=== PATIENT | female | born 1995 | race African-American/Black ===

== ENCOUNTER 2021-01-01 09:40 | Outpatient (REF) | payer OTHER, SELFPAY ==
[2021-01-01 11:25] LABS: Hematocrit 40.1 % (37-47); Hemoglobin 13.5 g/dl (12.0-16.0); Mean Corpuscular HGB Conc 33.7 g/dl (31.0-35.0); Mean Corpuscular Hemoglobin 30.3 pg (27.0-33.0); Mean Corpuscular Volume 89.9 fL (80-98); Mean Platelet Volume 10.9 fL (9.4-12.3); Platelet Count 261 X10*3/uL (160-400); Red Blood Count 4.46 X10*6/uL (4.20-5.50); Red Cell Distribution Width 11.9 % (11.0-16.0); White Blood Count 7.5 X10*3/uL (4.8-10.8)
[2021-01-01 11:49] LABS: Alanine Aminotransferase 15 U/L (0-31); Albumin Level 4.4 g/dL (3.5-5.0); Alkaline Phosphatase 49 U/L (39-117); Anion Gap 11 (12-20); Aspartate Amino Transferase 16 U/L (5-31); Bilirubin Total 1.1 mg/dL (0.0-1.0); Blood Urea Nitrogen 11 mg/dL (9-16); Calcium 9.4 mg/dL (8.4-10.2); Carbon Dioxide 24 mmol/L (22-29); Chloride 106 mmol/L (96-108); Cholesterol 146 mg/dL; Estimated Glomerular Filt Rate > 60; Glucose Fasting 79 mg/dL (60-99); HDL Cholesterol 53 mg/dL; LDL Cholesterol Calculated 78 mg/dl; Potassium 4.2 mmol/L (3.3-5.1); Sodium 137 mmol/L (135-145); Total Protein 7.2 g/dL (6.5-8.0); Triglycerides 75 mg/dL
== END 2021-01-01 09:41 | disposition home or self-care (01) ==
LOC: HO.HMGCLDS 09:40
PROVIDERS: PCP Internal Medicine; Visit Provider Internal Medicine
DX: Z00.00 Encounter for general adult medical examination without abnormal findings (principal)
CPT/HCPCS: 36415; 80053; 80061; 85027

== ENCOUNTER 2022-08-14 07:59 | Inpatient (IN) | payer OTHER, SELFPAY ==
[2022-08-14] VITALS (9 sets, daily range): BP systolic 136–153; BP diastolic 77–93; PULSE 56–82; RESP 14–20; TEMP 36.6–37.3; O2SAT 98–100; BMI 20.8; BMI 22.4
--- NOTE | ~2022-08-14 | CT_ITS ---
EXAMINATION: CT ABDOMEN AND PELVIS WITHOUT CONTRAST CLINICAL INFORMATION: Abdominal pain COMPARISON: None available. TECHNIQUE: Multidetector volumetric imaging was performed from the superior aspect of the liver through the pubic symphysis. Sagittal and coronal reformatted images were obtained on the technologist's workstation. Today's examination is limited secondary to lack of IV contrast and paucity of intra-abdominal fat. This CT examination was performed using dose optimization techniques as appropriate, variously including the following: *Automated exposure control *Adjustment of mA and/or kV according to patient size (this includes techniques or standardized protocols for targeted exams where dose is matched to indication/reason for exam; i.e. extremities or head) *Use of iterative reconstruction technique DLP: 399 mGy-cm FINDINGS: Visualized lung bases are well aerated. The liver demonstrates normal size, contour and attenuation. The gallbladder is normal in appearance. The pancreas, spleen and adrenal glands are unremarkable. Symmetrically sized kidneys. No renal calculi or hydronephrosis of either kidney. Normal caliber loops of small and large bowel. Normal caliber abdominal aorta. The bladder is decompressed and therefore not optimally characterized. Varela catheter is redundant and suspected to be within the vagina. There is a small amount of free pelvic fluid, nonspecific. No inguinal lymphadenopathy. No acute osseous abnormality. CT/CT abdomen pelvis wo IV con IMPRESSION: 1. Varela catheter is redundant and suspected to be within the vagina. Clinical correlation recommended. Repositioning warranted. 2. Small amount of free pelvic fluid, nonspecific. Fleischner guidelines were followed. This Critical Result was discussed with Dr. Morley at 12:10 PM on 08/14/2022 and it was ascertained that the content and urgency of the report was understood at the time of direct communication.
--- NOTE | ~2022-08-14 | US_ITS ---
EXAMINATION: US VENOUS WITH DOPPLER UPPER EXTREMITY, RIGHT CLINICAL INFORMATION: Edema, swelling COMPARISON: None available. TECHNIQUE: Ultrasound of the upper extremity is performed using compression sonography and color and pulse Doppler flow with assessment of augmentation of flow. There is also imaging and Doppler assessment of the jugular and subclavian veins. Spectral analysis with color-flow imaging is performed. FINDINGS: Respiratory variation, normal compression, and augmented flow are noted throughout the upper extremity deep vein including the axillary, brachial, cubital, and radial and ulnar veins. There is normal flow in the internal jugular and subclavian veins. There is normal flow in the basilic vein. There is near occlusive superficial venous thrombus noted in the right mid to distal cephalic vein. Mild subcutaneous edema in the forearm. US/US venous duplex UE RT IMPRESSION: No DVT demonstrated in the right upper extremity. Near occlusive superficial venous thrombus noted in the right mid to distal cephalic vein with subcutaneous edema in the forearm.
--- NOTE | ~2022-08-14 | IR_ITS ---
PROCEDURE: IR INSERTION OF TUNNEL CATHETER CLINICAL INFORMATION: Renal failure. COMPARISON: None available. TECHNIQUE: Procedure and risks and benefits including bleeding, infection and pneumothorax were discussed with the patient and informed consent was obtained. All elements of maximal sterile barrier technique followed including use of cap, mask, sterile gown, sterile gloves, a sterile full body drape and hand hygiene. Also followed skin preparation with 2% chlorhexidine for cutaneous antisepsis, and sterile ultrasound preparation with sterile gel and probe cover when applicable. The right neck and chest were prepped and draped in the usual sterile fashion. The skin and soft tissues were anesthetized with 1% lidocaine plain. Using ultrasound guidance and a 5 Q[place] micropuncture system, right internal jugular vein access was obtained. Over an 018 wire, a 5 Q[place]ari dilator was positioned in the SVC. The skin and soft tissues at the right upper anterior chest were anesthetized with 1% lidocaine plain. A small incision was made. A subcutaneous tunnel from the chest to the neck incision was anesthetized with 1% lidocaine plain. Using a tunneler, a 14.5 Q[place]ari 19 cm in length glidepath permacath was tunneled from the chest to the neck incision. An 035 guidewire was advanced through the 5 Q[place]ari dilator into a hepatic vein. Following serial dilatation and through a peel-away sheath, permacath was advanced centrally into the chest. The neck incision was closed using a 3-0 absorbable subcuticular suture. Chest incision was closed using a 3-0 absorbable mattress suture. Both ports flushed well, had good blood return and were instilled with 1.6 mL heparin 1000 unit per mL solution. Real-time ultrasound guidance was used to document vein patency and for needle entry. A formal ultrasound picture was recorded. Fluoroscopy time was 0.6 minutes. There is 1 saved fluoroscopic image. Conscious sedation was provided by a registered nurse under my direct supervision with continuous hemodynamic monitoring. The patient received Versed 1 mg and fentanyl 50 mcg intravenously during the procedure. Hegy-mg-cmvd total sedation time was 22 minutes. FINDINGS: There is a right internal jugular permacath with tip projecting over the cavoatrial junction. IR/IR cvc insert central tunnel IMPRESSION: 14.5 Q[place]ari 19 cm in length glidepath permacath placement.
--- NOTE | ~2022-08-14 | CT_ITS ---
PROCEDURE: CT GUIDED BIOPSY, KIDNEY CLINICAL INFORMATION: Renal failure. COMPARISON: Previous CT of the abdomen and pelvis July 2022. TECHNIQUE: Procedure and risks and benefits including bleeding, infection and injury to the kidney were discussed with the patient and informed consent was obtained. The patient was positioned in the prone position. Limited axial images through the kidneys were performed. The left flank was prepped and draped in usual sterile fashion. The skin and soft tissues were anesthetized with 1% lidocaine plain. Using CT guidance and a coaxial system, access to the lower pole of the left kidney was obtained. Two 18-gauge core biopsies were obtained. Postprocedure imaging demonstrated a small amount of perinephric hemorrhage. This remains stable on serial images. Conscious sedation was provided by a registered nurse under my direct supervision with continuous hemodynamic monitoring. Patient received Versed 1.5 g of fentanyl 75 mcg intravenously during the procedure. Total sedation time was 15 minutes. Total andv-ny-[id number] contact time was [address] examination was performed using dose optimization techniques as appropriate, variously including the following: *Automated exposure control *Adjustment of mA and/or kV according to patient size (this includes techniques or standardized protocols for targeted exams where dose is matched to indication/reason for exam; i.e. extremities or head) *Use of iterative reconstruction technique DLP: 191 mGy-cm. FINDINGS: The kidneys are enlarged with bilateral renal cortical thickening. There is a small amount of ascites. There are small bilateral pleural effusions. There is a small pericardial effusion. There is diffuse subcutaneous edema or anasarca. Postbiopsy imaging demonstrates a small amount of perinephric hemorrhage surrounding the lower pole of the left kidney. This remains stable on serial imaging. CT/CT biopsy renal LT IMPRESSION: CT-guided left renal biopsy.
--- NOTE | 2022-08-14 08:12 | ED_ITS ---
HPI - General Adult General Chief complaint: Abdominal Pain Stated complaint: abd pain Time Seen by Provider: 08/14/22 08:12 Source: patient Mode of arrival: ambulatory Limitations: no limitations History of Present Illness HPI narrative: Patient is a 27 year old assigned female at with a history of asthma pres enting to the emergency department today with nausea, vomiting, and intermittent abdominal cramping. Patient states that for a little over a week she has had abdominal cramping, nausea, and vomiting. Patient states that her bowel movements have been changing between loose and small hard balls. Patient states that she was given some anti nausea medication that helped but didn't fix the pain. Patient denies any dizziness, lightheadedness, fever, chills, blurry vision, double vision, loss of vision, chest pain, difficulty breathing, shortness of breath, back pain, night sweats, pain with urination, increased urinary frequency, increased urinary urgency, blood in her urine or stool, syncope or a near syncopal episode, recent trauma or falls, bowel incontinence, bladder incontinence, bowel retention, bladder retention, or any other complaints at this time. Onset (ago): week(s) Severity: mild Relieving factors: none Exacerbating factors: none Associated symptoms: nausea/vomiting Treatments prior to arrival: other (anti-emetics) Related Data Previous Rx's Medication Instructions Recorded albuterol sulfate 90 mcg/actuation 2 puff inhalation Q6H PRN 01/06/22 aerosol inhaler shortness of breath or wheezing #8.5 grams levonorgestrel-ethinyl estradiol 1 tab PO DAILY #84 tabs 01/06/22 0.1 mg-20 mcg tablet Flovent HFA 110 mcg/actuation 2 puff inhalation BID #36 grams 06/21/22 aerosol inhaler (fluticasone propionate) Allergies Allergy/AdvReac Type Severity Reaction Status Date / Time penicillin V Allergy Unknown rash Verified 08/11/22 10:17 Review of Systems Constitutional: Constitutional: Reports no additional constitutional complaints, Denies chills, Denies fever(s) and Denies night sweats Eyes: Eyes: Reports no additional eye complaints, Denies blurry vision, Denies change in vision, Denies diplopia, Denies eye discharge, Denies loss of vision and Denies eye pain ENT: Denies dizziness Cardiovascular: Cardiovascular: Reports no additional cardiovascular complaints, Denies chest pain, Denies lightheadedness, Denies Loss of Consciousness and Denies dyspnea Respiratory: Respiratory: Reports no additional respiratory complaints and Denies dyspnea Gastrointestinal: Gastrointestinal: Reports no additional gastrointestinal complaints, Reports abdominal pain, Denies melena, Denies hematochezia, Denies change in bowel habits, Denies change in stool character, Reports nausea and Reports vomiting Genitourinary: Genitourinary: Denies hematuria, Denies urinary frequency, Denies dysuria, Denies urinary incontinence, Denies urinary hesitancy and Denies urinary urgency Musculoskeletal: Musculoskeletal: Reports no additional musculoskeletal complaints, Denies numbness and Denies tingling Neurologic: Denies dizziness, Denies loss of vision, Denies numbness and Denies tingling Psychiatric: Psychiatric: Reports no additional psychiatric complaints Endocrine: Endocrine: Reports no additional endocrine complaints Hematologic/Lymphatic: Hematologic/Lymphatic: Reports no additional hematologic/lymphatic complaints Allergic/Immunologic: Allergic/Immunologic: Reports no additional allergic/immunologic complaints PMF Past Medical History Attestation statement: The following information was validated with the patient. Source: old records reviewed and nursing notes reviewed Medical History Asthma Family History Family History Paternal Aunt SLE (systemic lupus erythematosus) Social History Social History Household Members Other:: Lives with a partner Housing: House Patient Tobacco Use Status: Never used Tobacco e-Cigarette/Vaping Use: Never Used Advance Directives: No Advance Directives Information Provided: No Nutrition Risks: No Nutritional Risk Current occupational status: employed Cognitive needs: No Hearing needs: No Vision needs: Yes Physical Exam ED Vital Signs: Vital Signs - 24 hr 08/14/22 08:01 08/14/22 10:00 08/14/22 11:26 Temperature 98 F 97.8 F 98.0 F Pulse Rate 82 70 67 Respiratory Rate 18 14 16 Blood Pressure 153/93 H 141/89 H 145/87 H Pulse Oximetry 98 100 100 Oxygen Delivery Method Room Air Room Air Room Air 08/14/22 12:19 Temperature Pulse Rate 76 Respiratory Rate 16 Blood Pressure 140/80 H Pulse Oximetry 100 Oxygen Delivery Method Room Air BMI result Body Mass Index 20.8 Const General: cooperative, no acute distress, alert and awake Nutritional Appearance: well nourished Orientation/consciousness: patient oriented x3 Limitations: no limitations HENMT Head: Yes normal to inspection and Yes atraumatic Ears: hearing grossly normal bilaterally and external ears normal General nose exam: Normal external nose present, no nasal discharge noted and no epistaxis Face and sinus: Yes normal facial exam, No abrasion and No laceration Mouth: Normal oral and palatal mucosa present, no drooling and no muffled voice Eyes General: appearance normal, both eyes and all related structures Periorbital: periorbital findings normal Eyelids: Yes eyelids normal Conjunctivae: conjunctivae normal Pupils: Equal, round and reactive pupils present EOM: EOMs intact bilaterally Neck Neck: Yes normal visual inspection, Yes full ROM and Yes no lymphadenopathy Chest Chest palpation & inspection: normal inspection of the chest Resp Effort & Inspection: normal respiratory effort and able to speak in complete sentences Auscultation: clear to auscultation bilaterally GI Inspection: Yes normal to inspection Palpation (GI): Soft to palpation, not firm, nontender and no guarding Neuro General: patient oriented x3 and moves all extremities Cranial nerves: Yes Equal, round and reactive pupils present Cognition (Neuro): normal cognition Motor exam (neuro): 5/5 motor strength present throughout Sensory Exam: Normal double simultaneous stimulation for sensation Coordination: [id number] test normal Extrem General: Yes normal to inspection, Yes full ROM and Yes capillary refill normal Psych Appearance: grossly normal Mental Status: mental status grossly normal Affect: normal affect Attitude: cooperative Thought process: Normal thought process present Thought content: Normal thought content present Insight: Good insight present (Psych) Medications Administered Generic Name Dose Route Start Last Admin Trade Name Freq PRN Reason Stop Dose Admin Heparin Sodium (Porcine) 5,000 unit 08/14/22 14:00 08/14/22 13:40 Heparin Sodium,Porcine 5,000 Unit/Ml Vial SUBCUT 5,000 unit Q12H JENNIFER Administration Discontinued Medications Generic Name Dose Route Start Last Admin Trade Name Freq PRN Reason Stop Dose Admin Sodium Chloride 1,000 mls @ 999 mls/hr 08/14/22 08:15 08/14/22 10:57 Ns IV 08/14/22 09:15 Infused .Q1H1M JENNIFER Infusion Sodium Chloride 1,000 mls @ 999 mls/hr 08/14/22 10:45 08/14/22 12:14 Ns IV 08/14/22 11:45 Infused .Q1H1M JENNIFER Infusion Sodium Chloride 1,000 mls @ 999 mls/hr 08/14/22 11:00 08/14/22 12:40 Ns IV 08/14/22 12:00 Infused .Q1H1M JENNIFER Infusion Calcium Gluconate 2 gm in 100 mls @ 50 mls/hr 08/14/22 11:34 08/14/22 11:55 Calcium Gluconate IV 08/14/22 13:33 50 mls/hr ONCE ONE Administration Ondansetron HCl 4 mg 08/14/22 08:12 08/14/22 08:29 Ondansetron Hcl 4 Mg/2 Ml Vial IVPUSH 08/14/22 08:13 4 mg ONCE ONE Administration Sodium Bicarbonate 50 meq 08/14/22 11:40 08/14/22 11:48 Sodium Bicarbonate 8.4% 50 Meq/50 Ml Syringe IVPUSH 08/14/22 11:41 50 meq ONCE ONE Administration Sodium Bicarbonate 50 meq 08/14/22 11:41 08/14/22 11:48 Sodium Bicarbonate 8.4% 50 Meq/50 Ml Syringe IVPUSH 08/14/22 11:42 50 meq ONCE ONE Administration Sodium Zirconium Cyclosilicate 5 gm 08/14/22 11:34 08/14/22 11:57 Sodium Zirconium Cyclosilicate 5 Gm Powd.Pack PO 08/14/22 11:35 5 gm ONCE ONE Administration Sodium Zirconium Cyclosilicate 5 gm 08/14/22 12:13 08/14/22 12:19 Sodium Zirconium Cyclosilicate 5 Gm Powd.Pack PO 08/14/22 12:14 5 gm ONCE ONE Administration Medical Decision Making Medical Decision Making [facility] Narrative: Patient is a 27 year old assigned female at with a history of asthma presenting to the emergency department today with nausea, vomiting, and abdominal pain. Patient's physical exam was unremarkable. Patient's blood work showed a significantly elevated CR of 24.99, BUN 195, GAP 31, Potassium 6.3, and lipase of 141. Patient's EKG showed peaked T-waves. Patient's abdomen/pelvis CT showed a wrongly placed silva catheter but was otherwise unremarkable. I spoke to the solar energy installation manager who recommended calcium gluconate, sodium bicarbonate, lokelma, and NS. I spoke to the hospitalist team who agreed to admission. I explained my physical exam findings as well as all test results to the patient and the patient's parents. I answered all questions asked by the patient and the patient's parents. Patient's clinical presentation is most consistent with kidney failure secondary to dehydration and not spesis (@1345). Patient and the patient's parents verbalized agreement and understanding with this treatment plan and admission. Differential Diagnosis Differential Diagnoses: The differential diagnosis associated with the presentation includes gastroenteritis, abdominal pain, nausea, vomiting Consult Healthcare Provider Management of the patient was discussed with: Hospitalist (agreed to admission) and Systems Trainer (spoke to solar energy installation manager as noted in the MDM portion of this chart) Lab Data [facility] Lab Attestation statement: I reviewed the patient's lab results. 08/14/22 08:25 08/14/22 10:40 Labs: Lab Results 08/14/22 08/14/22 08/14/22 Range/Units 08:25 08:25 10:40 WBC 6.8 (4.8-10.8) X10*3/uL RBC 3.96 L (4.20-5.50) X10*6/uL Hgb 11.9 L (12.0-16.0) g/dl Hct 32.7 L (37.0-47.0) % MCV 82.6 (80.0-98.0) fL MCH 30.1 (27.0-33.0) pg MCHC 36.4 H (31.0-35.0) g/dl RDW 12.3 (11.0-16.0) % Plt Count 188 (160-400) X10*3/uL MPV 12.2 (9.4-12.3) fL Absolute Nucleated RBC 0.000 (0.0-0.012) X10*3/uL Nucleated RBC % (auto) 0.0 (0.0-0.2) /100WBC O2 Saturation % ABG pH at Pt Temp (7.35-7.45) ABG pCO2 at Pt Temp (32-45) mmHg ABG pO2 at Pt Temp (83-108) mmHg ABG HCO3 (22-26) mmol/L ABG Base Excess (Actual) mmol/L Sodium 128 L 127 L (135-145) mmol/L Potassium 5.9 H D 6.3 H* (3.3-5.1) mmol/L Chloride 87 L 91 L (96-108) mmol/L Carbon Dioxide 12 L 11 L (22-29) mmol/L Anion Gap 35 H 31 H (12-20) BUN 196 H 195 H (9-16) mg/dL Creatinine 25.30 H* 24.99 H* (0.5-1.4) mg/dL Estim Creat Clear Calc 3.1 3.1 Estimated GFR 2 2 Random Glucose 85 78 (60-115) mg/dL Calcium 9.0 8.2 L D (8.4-10.2) mg/dL Magnesium 3.0 H (1.6-2.6) mg/dL Total Bilirubin 1.1 H 0.9 (0.0-1.0) mg/dL Direct Bilirubin 0.4 (0.0-0.5) mg/dL AST 10 8 (5-31) U/L ALT 27 22 (0-31) U/L Alkaline Phosphatase 74 64 (39-117) U/L Total Protein 6.8 5.9 L (6.5-8.0) g/dL Albumin 3.9 3.4 L (3.5-5.0) g/dL Lipase 141 H (8-78) U/L Beta HCG, Quant < 2 mIU/mL Urine Color Urine Appearance Urine pH (5.0-9.0) Ur Specific [place] (1.005-1.025) Urine Protein (Neg-Trace) mg/dL Urine Glucose (UA) (Negative) mg/dL Urine Ketones (Negative) mg/dL Urine Blood (Negative) Urine Nitrite (Negative) Ur Leukocyte Esterase (Negative) Urine RBC (0-2) /HPF Urine WBC (0-5) /HPF Ur Squamous Epith Cells (0-2) /HPF Urine Bacteria (None Seen) Hyaline Casts (0-2) /LPF Urine Test (NEGATIVE) Urine Opiates Screen (Not Detect) Urine Fentanyl Screen (Not Detect) Ur Barbiturates Screen (Not Detect) Ur Phencyclidine Scrn (Not Detect) Ur Amphetamines Screen (Not Detect) U Benzodiazepines Scrn (Not Detect) Urine Cocaine Screen (Not Detect) U Marijuana (THC) Screen (Not Detect) 08/14/22 08/14/22 08/14/22 Range/Units 10:40 10:40 10:40 WBC (4.8-10.8) X10*3/uL RBC (4.20-5.50) X10*6/uL Hgb (12.0-16.0) g/dl Hct (37.0-47.0) % MCV (80.0-98.0) fL MCH (27.0-33.0) pg MCHC (31.0-35.0) g/dl RDW (11.0-16.0) % Plt Count (160-400) X10*3/uL MPV (9.4-12.3) fL Absolute Nucleated RBC (0.0-0.012) X10*3/uL Nucleated RBC % (auto) (0.0-0.2) /100WBC O2 Saturation % ABG pH at Pt Temp (7.35-7.45) ABG pCO2 at Pt Temp (32-45) mmHg ABG pO2 at Pt Temp (83-108) mmHg ABG HCO3 (22-26) mmol/L ABG Base Excess (Actual) mmol/L Sodium (135-145) mmol/L Potassium (3.3-5.1) mmol/L Chloride (96-108) mmol/L Carbon Dioxide (22-29) mmol/L Anion Gap (12-20) BUN (9-16) mg/dL Creatinine (0.5-1.4) mg/dL Estim Creat Clear Calc Estimated GFR Random Glucose (60-115) mg/dL Calcium (8.4-10.2) mg/dL Magnesium (1.6-2.6) mg/dL Total Bilirubin (0.0-1.0) mg/dL Direct Bilirubin (0.0-0.5) mg/dL AST (5-31) U/L ALT (0-31) U/L Alkaline Phosphatase (39-117) U/L Total Protein (6.5-8.0) g/dL Albumin (3.5-5.0) g/dL Lipase (8-78) U/L Beta HCG, Quant mIU/mL Urine Color Yellow Urine Appearance Cloudy Urine pH 5.5 (5.0-9.0) Ur Specific [place] 1.015 (1.005-1.025) Urine Protein 100 (2+) H (Neg-Trace) mg/dL Urine Glucose (UA) 100 H (Negative) mg/dL Urine Ketones Trace (Negative) mg/dL Urine Blood Large (3+) H (Negative) Urine Nitrite Negative (Negative) Ur Leukocyte Esterase Small (1+) H (Negative) Urine RBC 11-20 H (0-2) /HPF Urine WBC 11-20 H (0-5) /HPF Ur Squamous Epith Cells 11-20 (0-2) /HPF Urine Bacteria 2+ (None Seen) Hyaline Casts 0-2 (0-2) /LPF Urine Test NEGATIVE (NEGATIVE) Urine Opiates Screen Not Detected (Not Detect) Urine Fentanyl Screen Not Detected (Not Detect) Ur Barbiturates Screen Not Detected (Not Detect) Ur Phencyclidine Scrn Not Detected (Not Detect) Ur Amphetamines Screen Not Detected (Not Detect) U Benzodiazepines Scrn Not Detected (Not Detect) Urine Cocaine Screen Not Detected (Not Detect) U Marijuana (THC) Screen Not Detected (Not Detect) 08/14/22 Range/Units 12:20 WBC (4.8-10.8) X10*3/uL RBC (4.20-5.50) X10*6/uL Hgb (12.0-16.0) g/dl Hct (37.0-47.0) % MCV (80.0-98.0) fL MCH (27.0-33.0) pg MCHC (31.0-35.0) g/dl RDW (11.0-16.0) % Plt Count (160-400) X10*3/uL MPV (9.4-12.3) fL Absolute Nucleated RBC (0.0-0.012) X10*3/uL Nucleated RBC % (auto) (0.0-0.2) /100WBC O2 Saturation 100.0 % ABG pH at Pt Temp 7.43 (7.35-7.45) ABG pCO2 at Pt Temp 17 L* (32-45) mmHg ABG pO2 at Pt Temp 144 H (83-108) mmHg ABG HCO3 11 L (22-26) mmol/L ABG Base Excess (Actual) -10.3 mmol/L Sodium (135-145) mmol/L Potassium (3.3-5.1) mmol/L Chloride (96-108) mmol/L Carbon Dioxide (22-29) mmol/L Anion Gap (12-20) BUN (9-16) mg/dL Creatinine (0.5-1.4) mg/dL Estim Creat Clear Calc Estimated GFR Random Glucose (60-115) mg/dL Calcium (8.4-10.2) mg/dL Magnesium (1.6-2.6) mg/dL Total Bilirubin (0.0-1.0) mg/dL Direct Bilirubin (0.0-0.5) mg/dL AST (5-31) U/L ALT (0-31) U/L Alkaline Phosphatase (39-117) U/L Total Protein (6.5-8.0) g/dL Albumin (3.5-5.0) g/dL Lipase (8-78) U/L Beta HCG, Quant mIU/mL Urine Color Urine Appearance Urine pH (5.0-9.0) Ur Specific [place] (1.005-1.025) Urine Protein (Neg-Trace) mg/dL Urine Glucose (UA) (Negative) mg/dL Urine Ketones (Negative) mg/dL Urine Blood (Negative) Urine Nitrite (Negative) Ur Leukocyte Esterase (Negative) Urine RBC (0-2) /HPF Urine WBC (0-5) /HPF Ur Squamous Epith Cells (0-2) /HPF Urine Bacteria (None Seen) Hyaline Casts (0-2) /LPF Urine Test (NEGATIVE) Urine Opiates Screen (Not Detect) Urine Fentanyl Screen (Not Detect) Ur Barbiturates Screen (Not Detect) Ur Phencyclidine Scrn (Not Detect) Ur Amphetamines Screen (Not Detect) U Benzodiazepines Scrn (Not Detect) Urine Cocaine Screen (Not Detect) U Marijuana (THC) Screen (Not Detect) Independent Interpretation I performed an independent interpretation of an: EKG Interpretation: Vent. Rate: 069 BPM ? ? Atrial Rate: 069 BPM P-R Int: 136 ms? QRS Dur: 076 ms QT Int: 380 ms ? ? ? P-R-T Axes: 052 059 061 degrees QTc Int: 407 ms ? Sinus rhythm with Premature supraventricular complexes and with occasional Premature ventricular complexes Septal infarct , age undetermined Abnormal ECG When compared with ECG of 15-JUL-2015 15:46, Septal infarct is now Present DD/ 1121 Radiology Impression Radiologist Impression: My interpretation is in agreement with the radiologist's impression of this imaging study. EXAMINATION: CT ABDOMEN AND PELVIS WITHOUT CONTRAST? CLINICAL INFORMATION: Abdominal pain? COMPARISON: None available. TECHNIQUE: Multidetector volumetric imaging was performed from the superior aspect of the liver through the pubic symphysis. Sagittal and coronal reformatted images were obtained on the technologist's workstation. Today's examination is limited secondary to lack of IV contrast and paucity of intra-abdominal fat. This CT examination was performed using dose optimization techniques as appropriate, variously including the following: *Automated exposure control *Adjustment of mA and/or kV according to patient size (this includes techniques or standardized protocols for targeted exams where dose is matched to indication/reason for exam; i.e. extremities or head) *Use of iterative reconstruction technique DLP: 399 mGy-cm FINDINGS: Visualized lung bases are well aerated. The liver demonstrates normal size, contour and attenuation. The gallbladder is normal in appearance. The pancreas, spleen and adrenal glands are unremarkable. Symmetrically sized kidneys. No renal calculi or hydronephrosis of either kidney. Normal caliber loops of small and large bowel. Normal caliber abdominal aorta. The bladder is decompressed and therefore not optimally characterized. Silva catheter is redundant and suspected to be within the vagina. There is a small amount of free pelvic fluid, nonspecific. No inguinal lymphadenopathy. No acute osseous abnormality. CT/CT abdomen pelvis wo IV con IMPRESSION: 1.? Silva catheter is redundant and suspected to be within the vagina. Clinical correlation recommended. Repositioning warranted. 2.? Small amount of free pelvic fluid, nonspecific. ? Fleischner guidelines were followed. ? This Critical Result was discussed with Dr. Morley at 12:10 PM on 08/14/2022 and it was ascertained that the content and urgency of the report was understood at the time of direct communication. Dictated By: Ebenezer Craft MD Signed By: Electronically signed by Ebenezer Craft MD 08/14/22 1211 Independent Historian Clinical information obtained from an independent historian. History obtained from or confirmed by: Parent (patient's parents) Critical Care Time Critical Care Time Critical Care Time: Yes Total Critical Care Time: 45 Attestation: I spent 45 minutes of Critical Care Time with this patient. This does not include time spent on separately reported billable procedures. Discharge Plan Discharge Clinical Impression: BARNEY (acute kidney injury), Acute dehydration Patient Disposition: Admitted As Inpatient
[2022-08-14] MEDS: 0.9 % Sodium Chloride 1,000 ML 999 ML IV ×3 (08:27→12:37)
[2022-08-14] MEDS: ondansetron HCL 4 MG/2 ML VIAL IVPUSH ×2 (08:29→16:08)
[2022-08-14 08:36] LABS: Hematocrit 32.7 % (37.0-47.0); Hemoglobin 11.9 g/dl (12.0-16.0); Mean Corpuscular HGB Conc 36.4 g/dl (31.0-35.0); Mean Corpuscular Hemoglobin 30.1 pg (27.0-33.0); Mean Corpuscular Volume 82.6 fL (80.0-98.0); Mean Platelet Volume 12.2 fL (9.4-12.3); Platelet Count 188 X10*3/uL (160-400); Red Blood Count 3.96 X10*6/uL (4.20-5.50); Red Cell Distribution Width 12.3 % (11.0-16.0); White Blood Count 6.8 X10*3/uL (4.8-10.8)
[2022-08-14 10:31] LABS: Alanine Aminotransferase 27 U/L (0-31); Albumin Level 3.9 g/dL (3.5-5.0); Alkaline Phosphatase 74 U/L (39-117); Anion Gap 35 (12-20); Aspartate Amino Transferase 10 U/L (5-31); Bilirubin Direct 0.4 mg/dL (0.0-0.5); Bilirubin Total 1.1 mg/dL (0.0-1.0); Blood Urea Nitrogen 196 mg/dL (9-16); Carbon Dioxide 12 mmol/L (22-29); Chloride 87 mmol/L (96-108); Creatinine Clr Calc Pharmacy 3.1; Estimated Glomerular Filt Rate 2; Glucose Random 85 mg/dL (60-115); HCG Quantitative < 2 mIU/mL; Lipase 141 U/L (8-78); Potassium 5.9 mmol/L (3.3-5.1); Sodium 128 mmol/L (135-145); Total Protein 6.8 g/dL (6.5-8.0)
[2022-08-14 10:51] LABS: Appearance Urine Cloudy; Color Urine Yellow; Glucose Urine UA 100 mg/dL (Negative); Leukocyte Esterase Urine Small (1+) (Negative); Nitrite Urine Negative (Negative); PH 5.5 (5.0-9.0); Specific Gravity - Urine 1.015 (1.005-1.025); UMIC TRIGGER UACC YES; Urine Blood Large (3+) (Negative); Urine Ketones Trace mg/dL (Negative); Urine Protein 100 (2+) mg/dL (Neg-Trace)
[2022-08-14 10:54] LABS: UPreg QC Valid YES; Urine Pregnancy NEGATIVE (NEGATIVE)
[2022-08-14 11:02] LABS: Bacteria Urine 2+ (None Seen); Hyaline Casts Urine 0-2 /LPF (0-2); UACC Culture Trigger YES
--- NOTE | 2022-08-14 11:11 | ECG_ITS ---
Test Reason : HYPERKALEMIA Blood Pressure : / mmHG Vent. Rate : 069 BPM Atrial Rate : 069 BPM P-R Int : 136 ms QRS Dur : 076 ms QT Int : 380 ms P-R-T Axes : 052 059 061 degrees QTc Int : 407 ms Sinus rhythm with Premature supraventricular complexes and with occasional Premature ventricular complexes Septal infarct , age undetermined Abnormal ECG When compared with ECG of 15-JUL-2015 15:46, Septal infarct is now Present Referred By: Cherie Morley Electronically Signed By:Anival Mcclain
[2022-08-14 11:17] LABS: Alanine Aminotransferase 22 U/L (0-31); Albumin Level 3.4 g/dL (3.5-5.0); Alkaline Phosphatase 64 U/L (39-117); Anion Gap 31 (12-20); Aspartate Amino Transferase 8 U/L (5-31); Bilirubin Total 0.9 mg/dL (0.0-1.0); Blood Urea Nitrogen 195 mg/dL (9-16); Calcium 8.2 mg/dL (8.4-10.2); Carbon Dioxide 11 mmol/L (22-29); Chloride 91 mmol/L (96-108); Creatinine Clr Calc Pharmacy 3.1; Estimated Glomerular Filt Rate 2; Glucose Random 78 mg/dL (60-115); Potassium 6.3 mmol/L (3.3-5.1); Sodium 127 mmol/L (135-145); Total Protein 5.9 g/dL (6.5-8.0)
[2022-08-14] MEDS: Sodium Bicarbonate 8.4% 50 MEQ/50 ML SYRINGE IVPUSH ×2 (11:48)
[2022-08-14] MEDS: Calcium Gluconate/NaCl,Iso-Osm 2 GM/100 ML PLAST..BAG IV (11:55)
[2022-08-14] MEDS: Sodium Zirconium Cyclosilicate 5 GM POWD.PACK PO ×2 (11:57→12:19)
[2022-08-14 12:28] LABS: ABG Base Excess -10.3 mmol/L; ABG HCO3 11 mmol/L (22-26); ABG pCO2 17 mmHg (32-45); ABG pH 7.43 (7.35-7.45); ABG pO2 144 mmHg (83-108)
[2022-08-14 12:32] LABS: Amphetamine Screen Urine Not Detected (Not Detect); Barbiturates, Urine Not Detected (Not Detect); Benzodiazepines Screen Urine Not Detected (Not Detect); Cannabinoid Screen Urine Not Detected (Not Detect); Cocaine Screen Urine Not Detected (Not Detect); Fentanyl, urine Not Detected (Not Detect); Opiate Screen Urine Not Detected (Not Detect); Phencyclidine Screen Urine Not Detected (Not Detect)
--- NOTE | 2022-08-14 13:17 | P.HPHOSP_ITS ---
History of Present Illness Date of Service: 08/14/22 <RAKAN Barreto - Last Filed: 08/14/22 15:30> Attending physician on admission: Cody Baker <RAKAN Barreto - Last Filed: 08/14/22 15:30> Chief Complaint: weakness, n/v <RAKAN Barreto - Last Filed: 08/14/22 15:30> 27-year-old female with history of mild persistent asthma presents to the ED earlier today for evaluation of nausea, vomiting, and intermittent abdominal cramping that started 8 days ago. She reports she went out to dinner and had a small amount of food at a local restaurant and then had several alcoholic beverages. When she arrived home, she felt nauseous and had some vomiting. Since then, she has had intermittent periods of nausea and vomiting but has gone through periods of 2 days without any symptoms. She has also had bowel movements alternating between constipation and diarrhea. She had a single episode of diarrhea last night and episode of vomiting last night and this morning. She has been consuming primarily clear liquids but PO intake has been minimal. Since arrival, has been mildly hypertensive to 153/93. Afebrile, no hypoxia. No leukocytosis. She denies regular etoh use, iliicit drug use, cigarette smoking. Endorses occasional marijuana use. Denies any history of similar symptoms. Mild normocytic anemia with H/H 11.9/32.7. Initial creatinine 25.3, BUN 196. Sodium 128, potassium 5.9, chloride 87, CO2 12, anion gap 35, mag nesium 3, LFTs normal. Given 2 L IVF. Creatinine 24.99, BUN 195. Sodium 127, potassium 6.3, chloride 91, CO2 11, anion gap 31. Urinalysis with 1+ leukocytes, negative nitrites, 3+ blood, positive glucose, 2+ protein, positive urinary sediment, 2+ bacteria. Urine test negative. Urine tox screen negative. CT abdomen/pelvis showing small amount of free pelvic fluid that is nonspecific, no other significant intra-abdominal abnormality. EKG showing sinus rhythm with premature supraventricular complexes with occasional PVCs, rate. Peak T-waves noted in multiple leaves with T-wave inversions in V1, V2. <RAKAN Barreto - Last Filed: 08/14/22 15:30> Review of Systems Review of Systems: General: No fevers, malaise, unintentional weight loss HEENT: No blurred vision, diplopia. No sore throat, nasal congestion, rhinorrhea, sinus pain, ear pain Cardiovascular: No chest pain, palpitations, or leg edema Respiratory: No shortness of breath, wheezing, cough GI: +abd pain, +n/v, +diarrhea, +constipation. No melena, hematochezia : No dysuria, hematuria, increased urinary frequency, decreased urinary output MSK: No myalgia, back pain Neuro: No headaches, weakness, paresthesias Skin: No rashes or lesions <RAKAN Barreto - Last Filed: 08/14/22 15:30> [facility] Medical History: Medical History Asthma <RAKAN Barreto - Last Filed: 08/14/22 15:30> Family History: Family History Paternal Aunt SLE (systemic lupus erythematosus) <RAKAN Barreto - Last Filed: 08/14/22 15:30> Social History: Social History Household Members Other:: Lives with a partner Housing: House Patient Tobacco Use Status: Never used Tobacco e-Cigarette/Vaping Use: Never Used Advance Directives: No Advance Directives Information Provided: No Nutrition Risks: No Nutritional Risk Current occupational status: employed Cognitive needs: No Hearing needs: No Vision needs: Yes <RAKAN Barreto Last Filed: 08/14/22 15:30> Meds Allergies/Adverse reactions: Allergies Allergy/AdvReac Type Severity Reaction Status Date / Time penicillin V Allergy Unknown rash Verified 08/11/22 10:17 <RAKAN Barreto Last Filed: 08/14/22 15:30> Active Medications: Current Medications Calcium Gluconate (Calcium Gluconate) 2 gm in 100 mls @ 50 mls/hr IV ONCE ONE Stop: 08/14/22 13:33 Last Admin: 08/14/22 11:55 Dose: 50 mls/hr Pharmacy Consult (Consult Rx Perform Med Rec) 1 each MISCELLANE ONCE PRN PRN Reason: Consult order <RAKAN Barreto - Last Filed: 08/14/22 15:30> Physical Exam Vital Signs and Narrative: Vital Signs: Last Vital Signs Temp 98.0 F 08/14/22 11:26 Pulse 76 08/14/22 12:19 Resp 16 08/14/22 12:19 BP 140/80 H 08/14/22 12:19 Pulse Ox 100 08/14/22 12:19 O2 Del Method Room Air 08/14/22 12:19 BMI result Body Mass Index 20.8 <RAKAN Barreto - Last Filed: 08/14/22 15:30> Constitutional - Awake and Alert, No apparent distress Eyes - PERRLA, EOMI Cardiovascular - S1S2, RRR, No edema Respiratory - Normal lung expansion, Normal respiratory effort, No respiratory distress, CTA bilaterally Gastrointestinal - mild diffuse ttp, greatest LUQ, ND; +BS; No rebound or guarding - No CVA tenderness Extremities - no calf tenderness bilaterally, no swelling Skin - Warm/Dry Neurological - Alert & oriented x3, tremulous Psychological - Appropriate affect <RAKAN Barreto - Last Filed: 08/14/22 15:30> Results Labs CBC and Chem 7: 08/14/22 08:25 08/14/22 10:40 <RAKAN Barreto - Last Filed: 08/14/22 15:30> Labs: Laboratory Results - last 24 hr 08/14/22 08/14/22 08/14/22 08:25 08:25 10:40 MCV 82.6 MCH 30.1 MCHC 36.4 H RDW 12.3 Plt Count 188 MPV 12.2 Absolute Nucleated RBC 0.000 Nucleated RBC % (auto) 0.0 O2 Saturation ABG pH at Pt Temp ABG pCO2 at Pt Temp ABG pO2 at Pt Temp ABG HCO3 ABG Base Excess (Actual) Anion Gap 35 H 31 H Estim Creat Clear Calc 3.1 3.1 Estimated GFR 2 2 Random Glucose 85 78 Calcium 9.0 8.2 L D Magnesium 3.0 H Total Bilirubin 1.1 H 0.9 Direct Bilirubin 0.4 AST 10 8 ALT 27 22 Alkaline Phosphatase 74 64 Total Protein 6.8 5.9 L Albumin 3.9 3.4 L Lipase 141 H Beta HCG, Quant < 2 Urine Color Urine Appearance Urine pH Ur Specific [place] Urine Protein Urine Glucose (UA) Urine Ketones Urine Blood Urine Nitrite Ur Leukocyte Esterase Urine RBC Urine WBC Ur Squamous Epith Cells Urine Bacteria Hyaline Casts Urine Test Urine Opiates Screen Urine Fentanyl Screen Ur Barbiturates Screen Ur Phencyclidine Scrn Ur Amphetamines Screen U Benzodiazepines Scrn Urine Cocaine Screen U Marijuana (THC) Screen 08/14/22 08/14/22 08/14/22 10:40 10:40 10:40 MCV MCH MCHC RDW Plt Count MPV Absolute Nucleated RBC Nucleated RBC % (auto) O2 Saturation ABG pH at Pt Temp ABG pCO2 at Pt Temp ABG pO2 at Pt Temp ABG HCO3 ABG Base Excess (Actual) Anion Gap Estim Creat Clear Calc Estimated GFR Random Glucose Calcium Magnesium Total Bilirubin Direct Bilirubin AST ALT Alkaline Phosphatase Total Protein Albumin Lipase Beta HCG, Quant Urine Color Yellow Urine Appearance Cloudy Urine pH 5.5 Ur Specific [place] 1.015 Urine Protein 100 (2+) H Urine Glucose (UA) 100 H Urine Ketones Trace Urine Blood Large (3+) H Urine Nitrite Negative Ur Leukocyte Esterase Small (1+) H Urine RBC 11-20 H Urine WBC 11-20 H Ur Squamous Epith Cells 11-20 Urine Bacteria 2+ Hyaline Casts 0-2 Urine Test NEGATIVE Urine Opiates Screen Not Detected Urine Fentanyl Screen Not Detected Ur Barbiturates Screen Not Detected Ur Phencyclidine Scrn Not Detected Ur Amphetamines Screen Not Detected U Benzodiazepines Scrn Not Detected Urine Cocaine Screen Not Detected U Marijuana (THC) Screen Not Detected 08/14/22 12:20 MCV MCH MCHC RDW Plt Count MPV Absolute Nucleated RBC Nucleated RBC % (auto) O2 Saturation 100.0 ABG pH at Pt Temp 7.43 ABG pCO2 at Pt Temp 17 L* ABG pO2 at Pt Temp 144 H ABG HCO3 11 L ABG Base Excess (Actual) -10.3 Anion Gap Estim Creat Clear Calc Estimated GFR Random Glucose Calcium Magnesium Total Bilirubin Direct Bilirubin AST ALT Alkaline Phosphatase Total Protein Albumin Lipase Beta HCG, Quant Urine Color Urine Appearance Urine pH Ur Specific [place] Urine Protein Urine Glucose (UA) Urine Ketones Urine Blood Urine Nitrite Ur Leukocyte Esterase Urine RBC Urine WBC Ur Squamous Epith Cells Urine Bacteria Hyaline Casts Urine Test Urine Opiates Screen Urine Fentanyl Screen Ur Barbiturates Screen Ur Phencyclidine Scrn Ur Amphetamines Screen U Benzodiazepines Scrn Urine Cocaine Screen U Marijuana (THC) Screen <RAKAN Barreto - Last Filed: 08/14/22 15:30> Imaging Radiologist's Impressions: Impressions Abdomen/Pelvis CT 08/14/22 11:21 IMPRESSION: 1. Varela catheter is redundant and suspected to be within the vagina. Clinical correlation recommended. Repositioning warranted. 2. Small amount of free pelvic fluid, nonspecific. Fleischner guidelines were followed. This Critical Result was discussed with Dr. Morley at 12:10 PM on 08/14/2022 and it was ascertained that the content and urgency of the report was understood at the time of direct communication. <RAKAN Barreto - Last Filed: 08/14/22 15:30> Assessment and Plan (1) Uremia: Status: Acute <RAKAN Barreto - Last Filed: 08/14/22 15:30> (2) BARNEY (acute kidney injury): Status: Acute <RAKAN Barreto - Last Filed: 08/14/22 15:30> 27-year-old female with history of mild persistent asthma admitted for BARNEY. #Acute kidney injury with uremia -Creat 25 on arrival, BUN 196. Repeat 24.99, BUN 195. Baseline unclear -Varela catherter in place, making urine -UA with 1+ leuks, 3+ blood, +protein. FH SLE. Check BRIELLE, ANCA, C3/C4, hepatitis panel, cpk -Continue IVF -Nephrology consult -Continue IVF -MOnitor I&O -Defer emergent dialysis at this time, however discussed with ICU provider who will place temporary catheter if needed #Anion-gap metabolic acidosis -secondary to above -Compensating. Given 2 amps bicarb in ed, AG trending down -Initiate D5w/bicarb drip -Repeat VBG am #Acute hyperkalemia- related to BARNEY -Initial K 5.8, repeat 6.3 -Peaked t waves noted on telemetry, given calcium gluconate -10g lokelma given -Monitor on telemetry #Mild persistent asthma -no acute exacerbation, continue home inhalers DVT prophylaxis- heparin Full code Pt requires inpt stay at least 2 midnight for management of barney with uremia <RAKAN Barreto - Last Filed: 08/14/22 15:30> Time Spent With Patient Time: Total time managing care of this patient today ____ minutes. <RAKAN Barreto - Last Filed: 08/14/22 15:30> Quality Stroke Does the patient have a stroke diagnosis?: No <Cody Baker MD - Last Filed: 08/14/22 14:29> VTE Prior VTE?: No <Cody Baker MD - Last Filed: 08/14/22 14:29> VTE Risk Level:: Medical - moderate - high <Cody Baker MD - Last Filed: 08/14/22 14:29> VTE Device Contraindication: Treatment Not Indicated <Cody Baker MD - Last Filed: 08/14/22 14:29> VTE Drug Contraindication: Treatment Not Indicated <Cody Baker MD - Last Filed: 08/14/22 14:29>
[2022-08-14] MEDS: Heparin Sodium,Porcine 5,000 UNIT/ML VIAL 5000 UNIT SUBCUT (13:40)
[2022-08-14 15:17] LABS: Anion Gap 30 (12-20); Calcium 7.8 mg/dL (8.4-10.2); Carbon Dioxide 10 mmol/L (22-29); Chloride 97 mmol/L (96-108); Creatinine Clr Calc Pharmacy 3.5; Estimated Glomerular Filt Rate 2; Glucose Random 67 mg/dL (60-115); Potassium 5.3 mmol/L (3.3-5.1); Sodium 132 mmol/L (135-145)
[2022-08-14 15:18] LABS: Alanine Aminotransferase 18 U/L (0-31); Albumin Level 2.8 g/dL (3.5-5.0); Alkaline Phosphatase 54 U/L (39-117); Anion Gap 30 (12-20); Aspartate Amino Transferase 8 U/L (5-31); Calcium 7.8 mg/dL (8.4-10.2); Carbon Dioxide 11 mmol/L (22-29); Chloride 96 mmol/L (96-108); Creatinine Clr Calc Pharmacy 3.5; Estimated Glomerular Filt Rate 2; Glucose Random 67 mg/dL (60-115); Potassium 5.5 mmol/L (3.3-5.1); Sodium 131 mmol/L (135-145)
[2022-08-14 15:34] LABS: Blood Urea Nitrogen 186 mg/dL (9-16)
[2022-08-14 15:51] LABS: Blood Urea Nitrogen 187 mg/dL (9-16)
[2022-08-14] MEDS: Sodium Bicarbonate 8.4% 150 MEQ in Dextrose 5 % 850 ML 100 MEQ IV (16:01)
[2022-08-14] MEDS: Sodium Zirconium Cyclosilicate 10 GM POWD.PACK PO ×2 (17:21→20:52)
[2022-08-14 20:12] LABS: Anion Gap 32 (12-20); Calcium 7.9 mg/dL (8.4-10.2); Carbon Dioxide 11 mmol/L (22-29); Chloride 95 mmol/L (96-108); Creatinine Clr Calc Pharmacy 3.6; Estimated Glomerular Filt Rate 2; Glucose Random 97 mg/dL (60-115); Potassium 5.6 mmol/L (3.3-5.1); Sodium 132 mmol/L (135-145)
[2022-08-14 20:30] LABS: Blood Urea Nitrogen 191 mg/dL (9-16)
--- NOTE | 2022-08-14 20:42 | PC.NURSE ---
2041. Abnormall labs reported to Dr. Acosta.
[2022-08-14] MEDS: 0.9 % Sodium Chloride Flush 3 ML SYRINGE IVFLUSH (20:53)
[2022-08-14 20:56] LABS: ABG Refer to POC result
[2022-08-15] MEDS: Sodium Bicarbonate 8.4% 150 MEQ in Dextrose 5 % 850 ML 100 MEQ IV ×2 (02:30→13:26)
[2022-08-15] MEDS: Heparin Sodium,Porcine 5,000 UNIT/ML VIAL 5000 UNIT SUBCUT ×2 (03:31→13:26)
[2022-08-15 03:36] VITALS: BP 141/87; PULSE 56; RESP 16; TEMP 36.8; O2SAT 100
[2022-08-15 06:14] LABS: MANUAL DIFF FLAG NO
[2022-08-15 06:23] LABS: Basophils Percent Auto 0.4 % (0-2); Eosinophils Absolute Auto 0.2 X10*3/uL (0.0-0.4); Eosinophils Percent Auto 2.7 % (0-4); Hematocrit 24.6 % (37.0-47.0); Imm Gran Abs Auto 0.07 X10*3/uL (0.00-0.03); Imm Gran Pct Auto 1.3 % (0.0-0.4); Lymphocytes Absolute Auto 0.8 X10*3/uL (1.2-4.9); Lymphocytes Percent Auto 14.8 % (20-40); Mean Corpuscular HGB Conc 36.6 g/dl (31.0-35.0); Mean Corpuscular Hemoglobin 30.1 pg (27.0-33.0); Mean Corpuscular Volume 82.3 fL (80.0-98.0); Mean Platelet Volume 12.2 fL (9.4-12.3); Monocytes Absolute Auto 0.7 X10*3/uL (0.1-1.2); Monocytes Percent Auto 12.3 % (2-11); Neutrophils Absolute Auto 3.8 x10*3/uL (2.0-8.3); Neutrophils Percent Auto 68.5 % (45-73); Platelet Count 186 X10*3/uL (160-400); Red Blood Count 2.99 X10*6/uL (4.20-5.50); Red Cell Distribution Width 12.2 % (11.0-16.0); White Blood Count 5.6 X10*3/uL (4.8-10.8)
[2022-08-15 06:58] LABS: Lactate Dehydrogenase 469 U/L (122-220)
[2022-08-15 07:21] LABS: Anion Gap 26 (12-20); Blood Urea Nitrogen 178 mg/dL (9-16); Calcium 7.6 mg/dL (8.4-10.2); Carbon Dioxide 19 mmol/L (22-29); Chloride 92 mmol/L (96-108); Creatinine Clr Calc Pharmacy 3.5; Estimated Glomerular Filt Rate 2; Glucose Random 120 mg/dL (60-115); Potassium 4.4 mmol/L (3.3-5.1); Sodium 133 mmol/L (135-145)
[2022-08-15 08:00] VITALS: BP 152/88; PULSE 62; RESP 18; TEMP 37.1; O2SAT 100
--- NOTE | 2022-08-15 09:07 | P.PNIM_ITS ---
Subjective Subjective Date of Service: 08/15/22 Interval History: overall feeling better, 250cc urine output overnight Physical Exam Vital Signs: Vital Signs: Last Vital Signs Temp 98.7 F 08/15/22 08:00 Pulse 62 08/15/22 08:00 Resp 18 08/15/22 08:00 BP 152/88 H 08/15/22 08:00 Pulse Ox 100 08/15/22 08:00 O2 Del Method Room Air 08/15/22 08:00 BMI result Body Mass Index 22.4 General: AO X 3, no acute distress Resp: CTA bilateral, no accessory muscles used CVS: S1,S2,RRR GI: soft, non tender, non distended Neuro: motor grossly intact, alert Psych: appropriate affect, appropriate insight Objective Data Active Medications Acetaminophen (Acetaminophen 325 Mg Tablet) 650 mg PO Q6H PRN PRN Reason: Pain, Mild (Pain Scale 1-3) Clotrimazole (Clotrimazole 1 % Cream 15 Gm Tube) 1 appl TOPICAL BID [facility]; Protocol Last Admin: 08/14/22 20:54 Dose: Not Given Documented By: RAYMUNDO Non-Admin Reason: Patient Refused Docusate Sodium (Docusate Sodium 100 Mg Capsule) 100 mg PO DAILY PRN PRN Reason: Constipation Heparin Sodium (Porcine) (Heparin Sodium,Porcine 5,000 Unit/Ml Vial) 5,000 unit SUBCUT Q12H [facility] Last Admin: 08/15/22 03:31 Dose: 5,000 unit Documented By: HEMANT Sodium Bicarbonate 150 meq/ (Dextrose) 1,000 mls @ 100 mls/hr IV .Q10H [facility] Last Admin: 08/15/22 02:30 Dose: 100 mls/hr Documented By: HEMANT Ondansetron HCl (Ondansetron Hcl 4 Mg/2 Ml Vial) 4 mg IVPUSH Q8H PRN PRN Reason: Nausea and Vomiting Last Admin: 08/14/22 16:08 Dose: 4 mg Documented By: SUMIT Pharmacy Consult (Consult Rx Perform Med Rec) 1 each MISCELLANE ONCE PRN PRN Reason: Consult order Sodium Chloride (0.9 % Sodium Chloride Flush 3 Ml Syringe) 3 ml IVFLUSH QSHIFT [facility] Last Admin: 08/15/22 08:53 Dose: Not Given Documented By: BERONICA Non-Admin Reason: IV Running Labs 08/15/22 05:51 08/15/22 05:51 Labs: Laboratory Results - last 24 hr 08/14/22 08/14/22 08/14/22 08:25 10:40 10:40 MCV MCH MCHC RDW Plt Count MPV Immature Gran % (Auto) Neut % (Auto) Lymph % (Auto) [place] % (Auto) Eos % (Auto) Baso % (Auto) Lymph # (Auto) [place] # (Auto) Eos # (Auto) Baso # (Auto) Abs Immat Gran (auto) Absolute Neuts (auto) Absolute Nucleated RBC Nucleated RBC % (auto) O2 Saturation ABG pH at Pt Temp ABG pCO2 at Pt Temp ABG pO2 at Pt Temp ABG HCO3 ABG Base Excess (Actual) Anion Gap 35 H 31 H Estim Creat Clear Calc 3.1 3.1 Estimated GFR 2 2 Random Glucose 85 78 Calcium 9.0 8.2 L D Magnesium 3.0 H Total Bilirubin 1.1 H 0.9 Direct Bilirubin 0.4 AST 10 8 ALT 27 22 Alkaline Phosphatase 74 64 Lactate Dehydrogenase Total Creatine Kinase Total Protein 6.8 5.9 L Albumin 3.9 3.4 L Lipase 141 H Beta HCG, Quant < 2 Urine Color Yellow Urine Appearance Cloudy Urine pH 5.5 Ur Specific [place] 1.015 Urine Protein 100 (2+) H Urine Glucose (UA) 100 H Urine Ketones Trace Urine Blood Large (3+) H Urine Nitrite Negative Ur Leukocyte Esterase Small (1+) H Urine RBC 11-20 H Urine WBC 11-20 H Ur Squamous Epith Cells 11-20 Urine Bacteria 2+ Hyaline Casts 0-2 Urine Test Urine Opiates Screen Urine Fentanyl Screen Ur Barbiturates Screen Ur Phencyclidine Scrn Ur Amphetamines Screen U Benzodiazepines Scrn Urine Cocaine Screen U Marijuana (THC) Screen 08/14/22 08/14/22 08/14/22 10:40 10:40 12:20 MCV MCH MCHC RDW Plt Count MPV Immature Gran % (Auto) Neut % (Auto) Lymph % (Auto) [place] % (Auto) Eos % (Auto) Baso % (Auto) Lymph # (Auto) [place] # (Auto) Eos # (Auto) Baso # (Auto) Abs Immat Gran (auto) Absolute Neuts (auto) Absolute Nucleated RBC Nucleated RBC % (auto) O2 Saturation 100.0 ABG pH at Pt Temp 7.43 ABG pCO2 at Pt Temp 17 L* ABG pO2 at Pt Temp 144 H ABG HCO3 11 L ABG Base Excess (Actual) -10.3 Anion Gap Estim Creat Clear Calc Estimated GFR Random Glucose Calcium Magnesium Total Bilirubin Direct Bilirubin AST ALT Alkaline Phosphatase Lactate Dehydrogenase Total Creatine Kinase Total Protein Albumin Lipase Beta HCG, Quant Urine Color Urine Appearance Urine pH Ur Specific [place] Urine Protein Urine Glucose (UA) Urine Ketones Urine Blood Urine Nitrite Ur Leukocyte Esterase Urine RBC Urine WBC Ur Squamous Epith Cells Urine Bacteria Hyaline Casts Urine Test NEGATIVE Urine Opiates Screen Not Detected Urine Fentanyl Screen Not Detected Ur Barbiturates Screen Not Detected Ur Phencyclidine Scrn Not Detected Ur Amphetamines Screen Not Detected U Benzodiazepines Scrn Not Detected Urine Cocaine Screen Not Detected U Marijuana (THC) Screen Not Detected 08/14/22 08/14/22 08/14/22 13:49 14:28 19:45 MCV MCH MCHC RDW Plt Count MPV Immature Gran % (Auto) Neut % (Auto) Lymph % (Auto) [place] % (Auto) Eos % (Auto) Baso % (Auto) Lymph # (Auto) [place] # (Auto) Eos # (Auto) Baso # (Auto) Abs Immat Gran (auto) Absolute Neuts (auto) Absolute Nucleated RBC Nucleated RBC % (auto) O2 Saturation ABG pH at Pt Temp ABG pCO2 at Pt Temp ABG pO2 at Pt Temp ABG HCO3 ABG Base Excess (Actual) Anion Gap 30 H 30 H 32 H Estim Creat Clear Calc 3.5 3.5 3.6 Estimated GFR 2 2 2 Random Glucose 67 67 97 Calcium 7.8 L 7.8 L 7.9 L Magnesium Total Bilirubin 1.0 Direct Bilirubin AST 8 ALT 18 Alkaline Phosphatase 54 Lactate Dehydrogenase Total Creatine Kinase 408 H Total Protein 5.0 L Albumin 2.8 L Lipase Beta HCG, Quant Urine Color Urine Appearance Urine pH Ur Specific [place] Urine Protein Urine Glucose (UA) Urine Ketones Urine Blood Urine Nitrite Ur Leukocyte Esterase Urine RBC Urine WBC Ur Squamous Epith Cells Urine Bacteria Hyaline Casts Urine Test Urine Opiates Screen Urine Fentanyl Screen Ur Barbiturates Screen Ur Phencyclidine Scrn Ur Amphetamines Screen U Benzodiazepines Scrn Urine Cocaine Screen U Marijuana (THC) Screen 08/15/22 08/15/22 08/15/22 05:51 05:51 05:51 MCV 82.3 MCH 30.1 MCHC 36.6 H RDW 12.2 Plt Count 186 MPV 12.2 Immature Gran % (Auto) 1.3 H Neut % (Auto) 68.5 Lymph % (Auto) 14.8 L [place] % (Auto) 12.3 H Eos % (Auto) 2.7 Baso % (Auto) 0.4 Lymph # (Auto) 0.8 L [place] # (Auto) 0.7 Eos # (Auto) 0.2 Baso # (Auto) 0.0 Abs Immat Gran (auto) 0.07 H Absolute Neuts (auto) 3.8 Absolute Nucleated RBC 0.000 Nucleated RBC % (auto) 0.0 O2 Saturation ABG pH at Pt Temp ABG pCO2 at Pt Temp ABG pO2 at Pt Temp ABG HCO3 ABG Base Excess (Actual) Anion Gap 26 H Estim Creat Clear Calc 3.5 Estimated GFR 2 Random Glucose 120 H Calcium 7.6 L Magnesium Total Bilirubin Direct Bilirubin AST ALT Alkaline Phosphatase Lactate Dehydrogenase 469 H Total Creatine Kinase Total Protein Albumin Lipase Beta HCG, Quant Urine Color Urine Appearance Urine pH Ur Specific [place] Urine Protein Urine Glucose (UA) Urine Ketones Urine Blood Urine Nitrite Ur Leukocyte Esterase Urine RBC Urine WBC Ur Squamous Epith Cells Urine Bacteria Hyaline Casts Urine Test Urine Opiates Screen Urine Fentanyl Screen Ur Barbiturates Screen Ur Phencyclidine Scrn Ur Amphetamines Screen U Benzodiazepines Scrn Urine Cocaine Screen U Marijuana (THC) Screen Assessment and Plan (1) BARNEY (acute kidney injury): Status: Acute Plan 27F PMH mild persistent asthma presented with malaise, nausea, found to have severe BARNEY with metabolic acidosis, hyperkalemia acute kidney injury complicated by acute metabolic acidosis, hyperkalemia, uremia hyperkalemia resolved continue iv fluids with bicarb, monitor bmp nephro eval follow up GN work up mild persistent asthma stable continue inhalers dvt prophylaxis - hep sq full code reason for continued hospitalization: close monitoring of renal function Time Spent With Patient Time: Total time managing care of this patient today ____ minutes. Quality Stroke Does the patient have a stroke diagnosis?: No VTE Prior VTE?: No VTE Risk Level:: Medical - moderate - high VTE Device Contraindication: Treatment Not Indicated VTE Drug Contraindication: Treatment Not Indicated
[2022-08-15] MEDS: Clotrimazole 1 % Cream 15 GM TUBE 1 APPL TOPICAL ×2 (09:20→21:35)
[2022-08-15] MEDS: ondansetron HCL 4 MG/2 ML VIAL IVPUSH ×2 (10:44→14:47)
[2022-08-15 10:45] LABS: Appearance Urine Cloudy; Color Urine Yellow; Glucose Urine UA Negative (Negative); Leukocyte Esterase Urine Moderate (2+) (Negative); Nitrite Urine Negative (Negative); UMIC TRIGGER UA YES; Urine Blood Large (3+) (Negative); Urine Ketones Negative (Negative); Urine Protein 100 (2+) mg/dL (Neg-Trace)
[2022-08-15 10:51] LABS: Bacteria Urine 1+ (None Seen); Hyaline Casts Urine 0-2 /LPF (0-2); RBC Urine >20 /HPF (0-2)
[2022-08-15 11:15] LABS: Creatinine Urine 103.75 mg/dL; Total Protein Urine Random 88 mg/dL (<12)
[2022-08-15 11:57] VITALS: BP 145/89; PULSE 58; RESP 18; TEMP 37.1; O2SAT 99
--- NOTE | 2022-08-15 12:38 | P.CONNP_ITS ---
History of Present Illness Reason for Consult Consult date: 08/15/22 Reason for consult: BARNEY Chief Complaint Chief complaint: barney History of Present Illness Narrative: 27-year-old pleasant young woman who was been enjoying in reasonably good health except for mild asthma has been admitted with acute kidney injury and hyperkalemia. About a week ago she had some alcohol which included draft beer. Following day she started feeling sick and has been having nausea and vomiting with abdominal discomfort. Over the last week she has had significant amount of vomiting. No diarrhea no melena no dysuria no urgency no gross hematuria. She did notice some decrease in urine output few days ago. She did not have any fever. No rash. She has a history of using marijuana a couple of times a week which again is not more than the usual amount she takes. She has had a history of hyperemesis from marijuana in the past. At time of admission she was found her serum creatinine of be 25.3 with serum potassium of 5.8 and severe acidosis with a bicarb of 12. Over the past 12 hours she has been treated with IV fluids. There has been minimal improvement in the serum creatinine. Potassium has been medically corrected with Lokelma. Acidosis is improving with bicarb supplementation. She has voided about 250 cc of urine thus far. She continues to have some nausea with lack of appetite. Review of Systems Constitutional: Denies chills, Denies fatigue, Denies fever(s), Denies headache(s), Denies night sweats, Reports poor appetite, Denies weakness and Denies weight loss Eyes: Denies blurry vision Denies vertigo, Denies headache(s) and Denies epistaxis Cardiovascular: Denies chest pain, Denies pedal edema and Denies dyspnea on exertion Respiratory: Denies cough, Denies hemoptysis and Denies dyspnea on exertion Gastrointestinal: Denies melena, Denies constipation, Denies loose stools and Reports nausea Genitourinary: Denies hematuria, Denies hot flashes and Reports flank pain Musculoskeletal: Denies back pain, Denies myalgias and Denies muscle weakness Skin/Breast: Denies alopecia, Denies rash, Denies skin ulcer and Denies unusual bruising Reports Abnormal speech present, Denies vertigo, Denies headache(s) and Denies weakness Endocrine: Denies fatigue and Denies heat intolerance Hematologic/Lymphatic: Denies easy bleeding and Denies easy bruising PMFSH Past Medical History Medical History Asthma Cognitive capacity: Has a history of lichen planus Patient : No Family History Family History Paternal Aunt SLE (systemic lupus erythematosus) Surgical History Surgical History [place] teeth removed Social History Social History Household Members: Family Household Members Other:: Lives with a partner Housing: House Do you presently have visiting nurse or other home services: No Patient Tobacco Use Status: Never used Tobacco e-Cigarette/Vaping Use: Never Used Second Hand Smoke Exposure: No Substance Use Type: Marijuana service: No Current occupational status: employed Cognitive needs: No Hearing needs: No Vision needs: Yes Travel History Ebola Risk: Travel/Contact With Anyone From Affected Area/s: No Narrative Narrative: No h/o Miscarriage Meds Allergies Allergy/AdvReac Type Severity Reaction Status Date / Time penicillin V Allergy Unknown rash Verified 08/18/22 10:40 Active Medications: Current Medications Acetaminophen (Acetaminophen 325 Mg Tablet) 650 mg PO Q6H PRN PRN Reason: Pain, Mild (Pain Scale 1-3) Albuterol Sulfate (Albuterol Sulfate 90 Mcg 8 Gm Inhaler) 2 puff INHALE Q6H PRN PRN Reason: shortness of breath or wheezing Clotrimazole (Clotrimazole 1 % Cream 15 Gm Tube) 1 appl TOPICAL BID [facility]; Protocol Last Admin: 08/15/22 09:20 Dose: 1 appl Docusate Sodium (Docusate Sodium 100 Mg Capsule) 100 mg PO DAILY PRN PRN Reason: Constipation Fluticasone Propionate (Fluticasone Propionate 100 Mcg Blst.W.Dev) 2 puff INHALE RBID [facility] Heparin Sodium (Porcine) (Heparin Sodium,Porcine 5,000 Unit/Ml Vial) 5,000 unit SUBCUT Q12H [facility] Last Admin: 08/15/22 03:31 Dose: 5,000 unit Sodium Bicarbonate 150 meq/ (Dextrose) 1,000 mls @ 100 mls/hr IV .Q10H [facility] Last Admin: 08/15/22 02:30 Dose: 100 mls/hr Ondansetron HCl (Ondansetron Hcl 4 Mg/2 Ml Vial) 4 mg IVPUSH Q8H PRN PRN Reason: Nausea and Vomiting Last Admin: 08/15/22 10:44 Dose: 4 mg Pharmacy Consult (Consult Rx Perform Med Rec) 1 each MISCELLANE ONCE PRN PRN Reason: Consult order Sodium Chloride (0.9 % Sodium Chloride Flush 3 Ml Syringe) 3 ml IVFLUSH QSHIFT [facility] Last Admin: 08/15/22 08:53 Dose: Not Given Physical Exam Vital Signs: Last Vital Signs Temp 98.8 F 08/15/22 11:57 Pulse 58 08/15/22 11:57 Resp 18 08/15/22 11:57 BP 145/89 H 08/15/22 11:57 Pulse Ox 99 08/15/22 11:57 O2 Del Method Room Air 08/15/22 11:57 BMI result Body Mass Index 22.4 Const General: healthy appearing, comfortable and well developed Nutritional Appearance: well nourished Orientation/consciousness: oriented to person, oriented to place and oriented to time HEENT General nose exam: no nasal discharge noted and no epistaxis Face and sinus: Yes normal facial exam and No erythema Eyes General: appearance normal, both eyes and all related structures Sclerae: sclerae normal Neck Neck: Yes no lymphadenopathy, Yes supple, No tender and Yes no JVD Thyroid: Thyroid normal Resp Effort & Inspection: normal respiratory effort Auscultation: clear to auscultation bilaterally, no rales and no wheezes Cardio Jugular venous distension: no JVD Palpation: no palpable S3 and no palpable S4 Rate: regular rate Rhythm: regular rhythm Heart sounds: no murmurs and no rubs GI Inspection: Yes normal to inspection Palpation (GI): Soft to palpation, nontender and no masses Percussion: Yes normal to percussion Auscultation: normal bowel sounds General: Yes no CVA tenderness Back/Spine/Pelvis Back: no CVA tenderness Skin General skin exam: no rashes or lesions noted, no ecchymosis, no erythema and no purpura Lesions: no lesions Neuro General: oriented to person, oriented to place and oriented to time Cranial nerves: Yes CN's II-XII intact bilaterally Speech: Abnormal speech present Motor exam (neuro): 5/5 motor strength present throughout and No Asterixis during motor activity present Extrem General: Yes no joint enlargement, Yes no pedal edema and No clubbing Results Lab Results 08/15/22 05:51 08/15/22 05:51 Lab results: Chemistry 08/14/22 08/14/22 08/14/22 08:25 10:40 13:49 Sodium 128 L 127 L 132 L Potassium 5.9 H D 6.3 H* 5.3 H Carbon Dioxide 12 L 11 L 10 L* BUN 196 H 195 H 186 H Creatinine 25.30 H* 24.99 H* 22.35 H* Calcium 9.0 8.2 L D 7.8 L 08/14/22 08/14/22 08/15/22 14:28 19:45 05:51 Sodium 131 L 132 L 133 L Potassium 5.5 H 5.6 H 4.4 D Carbon Dioxide 11 L 11 L 19 L BUN 187 H 191 H 178 H Creatinine 22.65 H* 22.59 H* 23.17 H* Calcium 7.8 L 7.9 L 7.6 L Hematology 08/14/22 08/15/22 08:25 05:51 WBC 6.8 5.6 Hgb 11.9 L 9.0 L D Plt Count 188 186 Urinalysis 08/14/22 08/15/22 10:40 10:26 Urine Color Yellow Yellow Urine Appearance Cloudy Cloudy Urine pH 5.5 6.0 Ur Specific [place] 1.015 1.010 Urine Protein 100 (2+) H 100 (2+) H Urine Glucose (UA) 100 H Negative Urine Ketones Trace Negative Urine Blood Large (3+) H Large (3+) H Urine Nitrite Negative Negative Ur Leukocyte Esterase Small (1+) H Moderate (2+) H Urine RBC 11-20 H >20 H Urine WBC 11-20 H 11-20 H Ur Squamous Epith Cells 11-20 3-5 Hyaline Casts 0-2 0-2 Urine Studies 08/15/22 08/15/22 10:26 10:26 Urine Creatinine 103.75 Cancelled Assessment and Plan (1) BARNEY (acute kidney injury): Status: Acute (2) Hyperkalemia: Status: Acute (3) Acidosis: Status: Acute (4) Hyponatremia: Status: Acute Plan Young woman with acute renal failure with severe hyperkalemia and metabolic acidosis with hyponatremia. Differential diagnosis is extensive at this time. Acute tubular necrosis from volume depletion versus acute glomerulonephritis. Urinalysis shows dipstick positive protein and blood along with bacteria and no casts with reported. No evidence of obstruction based on the recent imaging. Unlikely to be allergic interstitial nephritis. Severe metabolic acidosis and hyperkalemia due to acute kidney injury. and hyponatremia due to decreased free water clearance Recommendations. Ordered repeat urinalysis along with urine protein creatinine ratio. Battery of serological tests have been ordered including BRIELLE, Anca, ox complement C3 and C4, anti-GBM,etc Correct hyperkalemia medically. So for she has responded well to Lokelma and a serum potassium has normalized. IV hydration with bicarb supplementation to correct acidosis. Clinically she appears volume depleted and I will continue with IV hydration. Watch urine output closely. No absolute indication for dialysis today. If the creatinine does not improve or if she has recurrent hyperkalemia or the uremic symptoms then I will arrange for dialysis. Based on the serology and her response to IV hydration she might require kidney biopsy for definitive diagnosis. Further clinical course will determine this. I will follow her closely along with the team. Thank you Time Spent With Patient Time: Total time managing care of this patient today ____ minutes. Procedures Date of Service Date of Service: 08/15/22
--- NOTE | 2022-08-15 14:53 | MHC.CM.PN ---
CM ATTEMPTED TO SEE PT WHO WAS RECEIVING NURSING CARE CM TO REVISIT
[2022-08-15 15:15] VITALS: BP 132/74; PULSE 64; RESP 20; TEMP 36.7; O2SAT 100
[2022-08-15] MEDS: Acetaminophen 325 MG TABLET 650 MG PO (17:27)
--- NOTE | 2022-08-15 17:30 | PC.NURSE ---
Assumed care of patient at this time.
[2022-08-15 17:52] LABS: Anion Gap 26 (12-20); Blood Urea Nitrogen 179 mg/dL (9-16); Calcium 7.8 mg/dL (8.4-10.2); Carbon Dioxide 24 mmol/L (22-29); Chloride 88 mmol/L (96-108); Creatinine Clr Calc Pharmacy 3.5; Estimated Glomerular Filt Rate 2; Glucose Random 122 mg/dL (60-115); Potassium 4.3 mmol/L (3.3-5.1); Sodium 134 mmol/L (135-145)
[2022-08-15 19:11] VITALS: BP 118/76; PULSE 57; RESP 20; TEMP 36.8; O2SAT 100
[2022-08-15] MEDS: Fluticasone Propionate 100 MCG BLST.W.DEV 2 PUFF INHALE (20:17)
[2022-08-15 20:32] VITALS: PULSE 86; RESP 20
[2022-08-15] MEDS: 0.9 % Sodium Chloride Flush 3 ML SYRINGE IVFLUSH (21:38)
[2022-08-16] VITALS (8 sets, daily range): BP systolic 127–142; BP diastolic 69–90; PULSE 55–84; RESP 15–20; TEMP 36.4–37.1; O2SAT 96–100
[2022-08-16] MEDS: Sodium Bicarbonate 8.4% 150 MEQ in Dextrose 5 % 850 ML 100 MEQ IV (00:54)
[2022-08-16] MEDS: Heparin Sodium,Porcine 5,000 UNIT/ML VIAL 5000 UNIT SUBCUT (01:00)
[2022-08-16 04:53] LABS: Hematocrit 25.8 % (37.0-47.0); Hemoglobin 9.5 g/dl (12.0-16.0); Mean Corpuscular HGB Conc 36.8 g/dl (31.0-35.0); Mean Corpuscular Hemoglobin 30.4 pg (27.0-33.0); Mean Corpuscular Volume 82.4 fL (80.0-98.0); Mean Platelet Volume 12.3 fL (9.4-12.3); Platelet Count 260 X10*3/uL (160-400); Red Blood Count 3.13 X10*6/uL (4.20-5.50); White Blood Count 8.4 X10*3/uL (4.8-10.8)
[2022-08-16 04:59] LABS: Prothrombin Time 11.6 SEC (10.0-13.1)
[2022-08-16 05:02] LABS: Partial Thromboplastin Time 23.7 SEC (26.0-36.4)
[2022-08-16 05:15] LABS: Anion Gap 26 (12-20); Calcium 7.5 mg/dL (8.4-10.2); Carbon Dioxide 27 mmol/L (22-29); Chloride 85 mmol/L (96-108); Creatinine Clr Calc Pharmacy 3.5; Estimated Glomerular Filt Rate 2; Glucose Fasting 115 mg/dL (60-99); Potassium 3.9 mmol/L (3.3-5.1); Sodium 134 mmol/L (135-145)
[2022-08-16 05:28] LABS: Blood Urea Nitrogen 178 mg/dL (9-16)
[2022-08-16] MEDS: ondansetron HCL 4 MG/2 ML VIAL IVPUSH ×2 (06:22→16:27)
[2022-08-16] MEDS: Fluticasone Propionate 100 MCG BLST.W.DEV 2 PUFF INHALE ×2 (07:52→20:06)
[2022-08-16] MEDS: 0.9 % Sodium Chloride 1,000 ML 100 ML IVCONT (08:52)
[2022-08-16] MEDS: Clotrimazole 1 % Cream 15 GM TUBE 1 APPL TOPICAL ×2 (08:56→21:29)
[2022-08-16 09:06] LABS: HBc Num1 0.06 S/CO (0.00-0.79); HBsAGNum1 0.35 S/CO (0.00-0.99); Hepatitis A Antibody IgM 0.18 Index (0-0.79); Hepatitis B Core Antibody Nonreactive (Nonreactive); Hepatitis B Surface Antigen Negative (Negative); ~HepC Num1 0.09 S/CO (0.00-0.79); ~Hepatitis A Antibody IgM Nonreactive (Nonreactive); ~Hepatitis B Surface Antibody NONREACTIVE (Nonreactive); ~Hepatitis C Antibody Nonreactive (Nonreactive)
--- NOTE | 2022-08-16 09:52 | HO.PM.IMPN ---
Subjective Subjective Date of Service: 08/16/22 Interval History: oliguria, nausea Physical Exam Vital Signs: Vital Signs: Last Vital Signs Temp 98.3 F 08/16/22 07:52 Pulse 84 08/16/22 07:53 Resp 20 08/16/22 07:53 BP 130/69 08/16/22 07:52 Pulse Ox 100 08/16/22 07:52 O2 Del Method Room Air 08/16/22 07:52 BMI result Body Mass Index 22.4 General: AO X 3, no acute distress Resp: CTA bilateral, no accessory muscles used CVS: S1,S2,RRR GI: soft, non tender, non distended Neuro: motor grossly intact, alert Psych: appropriate affect, appropriate insight Objective Data Active Medications Acetaminophen (Acetaminophen 325 Mg Tablet) 650 mg PO Q6H PRN PRN Reason: Pain, Mild (Pain Scale 1-3) Last Admin: 08/15/22 17:27 Dose: 650 mg Documented By: BERONICA Albuterol Sulfate (Albuterol Sulfate 90 Mcg 8 Gm Inhaler) 2 puff INHALE Q6H PRN PRN Reason: shortness of breath or wheezing Clotrimazole (Clotrimazole 1 % Cream 15 Gm Tube) 1 appl TOPICAL BID [facility]; Protocol Last Admin: 08/16/22 08:56 Dose: 1 appl Documented By: VIKRAM Docusate Sodium (Docusate Sodium 100 Mg Capsule) 100 mg PO DAILY PRN PRN Reason: Constipation Fluticasone Propionate (Fluticasone Propionate 100 Mcg Blst.W.Dev) 2 puff INHALE RBID [facility] Last Admin: 08/16/22 07:52 Dose: 2 puff Documented By: CHONG Heparin Sodium (Porcine) (Heparin Sodium,Porcine 5,000 Unit/Ml Vial) 5,000 unit SUBCUT Q12H [facility] Last Admin: 08/16/22 01:00 Dose: 5,000 unit Documented By: JENNIFER Sodium Chloride (Ns) 1,000 mls @ 100 mls/hr IVCONT .Q10H [facility] Last Admin: 08/16/22 08:52 Dose: 100 mls/hr Documented By: VIKRAM Ondansetron HCl (Ondansetron Hcl 4 Mg/2 Ml Vial) 4 mg IVPUSH Q8H PRN PRN Reason: Nausea and Vomiting Last Admin: 08/16/22 06:22 Dose: 4 mg Documented By: JENNIFER Pharmacy Consult (Consult Rx Perform Med Rec) 1 each MISCELLANE ONCE PRN PRN Reason: Consult order Sodium Chloride (0.9 % Sodium Chloride Flush 3 Ml Syringe) 3 ml IVFLUSH QSHIFT [facility] Last Admin: 08/16/22 08:50 Dose: Not Given Documented By: VIKRAM Non-Admin Reason: IV Running Labs 08/16/22 03:38 08/16/22 03:38 Labs: Laboratory Results - last 24 hr 08/14/22 08/15/22 08/15/22 13:49 10:26 10:26 MCV MCH MCHC RDW Plt Count MPV Absolute Nucleated RBC Nucleated RBC % (auto) PT INR APTT Anion Gap Estim Creat Clear Calc Estimated GFR Random Glucose Fasting Glucose Calcium Urine Color Yellow Urine Appearance Cloudy Urine pH 6.0 Ur Specific [place] 1.010 Urine Protein 100 (2+) H Urine Glucose (UA) Negative Urine Ketones Negative Urine Blood Large (3+) H Urine Nitrite Negative Ur Leukocyte Esterase Moderate (2+) H Urine RBC >20 H Urine WBC 11-20 H Ur Squamous Epith Cells 3-5 Urine Bacteria 1+ Hyaline Casts 0-2 U Random Total Protein 88 H Urine Creatinine 103.75 Hepatitis A IgM Ab Nonreactive Hep Bs Antigen Negative Hep Bs Antibody NONREACTIVE Hep B Core Total Ab Nonreactive Hepatitis C Ab (EIA) Nonreactive 08/15/22 08/15/22 08/16/22 10:26 17:17 03:38 MCV 82.4 MCH 30.4 MCHC 36.8 H RDW 12.0 Plt Count 260 D MPV 12.3 Absolute Nucleated RBC 0.000 Nucleated RBC % (auto) 0.0 PT INR APTT Anion Gap 26 H Estim Creat Clear Calc 3.5 Estimated GFR 2 Random Glucose 122 H Fasting Glucose Calcium 7.8 L Urine Color Urine Appearance Urine pH Ur Specific [place] Urine Protein Urine Glucose (UA) Urine Ketones Urine Blood Urine Nitrite Ur Leukocyte Esterase Urine RBC Urine WBC Ur Squamous Epith Cells Urine Bacteria Hyaline Casts U Random Total Protein Urine Creatinine Cancelled Hepatitis A IgM Ab Hep Bs Antigen Hep Bs Antibody Hep B Core Total Ab Hepatitis C Ab (EIA) 08/16/22 08/16/22 03:38 03:38 MCV MCH MCHC RDW Plt Count MPV Absolute Nucleated RBC Nucleated RBC % (auto) PT 11.6 INR 1.0 APTT 23.7 L Anion Gap 26 H Estim Creat Clear Calc 3.5 Estimated GFR 2 Random Glucose Fasting Glucose 115 H Calcium 7.5 L Urine Color Urine Appearance Urine pH Ur Specific [place] Urine Protein Urine Glucose (UA) Urine Ketones Urine Blood Urine Nitrite Ur Leukocyte Esterase Urine RBC Urine WBC Ur Squamous Epith Cells Urine Bacteria Hyaline Casts U Random Total Protein Urine Creatinine Hepatitis A IgM Ab Hep Bs Antigen Hep Bs Antibody Hep B Core Total Ab Hepatitis C Ab (EIA) Microbiology Microbiology Results: Microbiology 08/14/22 Unknown Urine Culture - Final Urine clean catch - Urine goss top Lactobacillus species Assessment and Plan (1) BARNEY (acute kidney injury): Status: Acute Plan 27F PMH mild persistent asthma presented with malaise, nausea, found to have severe BARNEY with metabolic acidosis, hyperkalemia acute kidney injury complicated by acute metabolic acidosis, hyperkalemia, uremia hyperkalemia and acidosis resolved ivf changed to NS plan for kidney biopsy and permacath nephro following follow up GN work up mild persistent asthma stable continue inhalers dvt prophylaxis - hep sq full code reason for continued hospitalization: close monitoring of renal function Time Spent With Patient Time: Total time managing care of this patient today ____ minutes. Quality Stroke Does the patient have a stroke diagnosis?: No VTE Prior VTE?: No VTE Risk Level:: Medical - moderate - high VTE Device Contraindication: Treatment Not Indicated VTE Drug Contraindication: Treatment Not Indicated
--- NOTE | 2022-08-16 10:48 | P.PNNP_ITS ---
Subjective Subjective Date of Service: 08/18/22 Interval history: Still has nausea. Urine output noted Physical Exam Vital Signs: Vital Signs: Last Vital Signs Temp 98.3 F 08/16/22 07:52 Pulse 84 08/16/22 07:53 Resp 20 08/16/22 07:53 BP 130/69 08/16/22 07:52 Pulse Ox 100 08/16/22 07:52 O2 Del Method Room Air 08/16/22 07:52 BMI result Body Mass Index 22.4 Const: General: comfortable and well developed Nutritional Appearance: well nourished Orientation/consciousness: oriented to person, oriented to place and oriented to time HEENT: General nose exam: no nasal discharge noted and no epistaxis Face and sinus: Yes normal facial exam and No erythema Eyes: General: appearance normal, both eyes and all related structures Sclerae: sclerae normal Neck: Neck: Yes no lymphadenopathy, Yes supple, No tender and Yes no JVD Thyroid: Thyroid normal Resp: Effort & Inspection: normal respiratory effort Auscultation: clear to auscultation bilaterally, no rales and no wheezes Cardio: Jugular venous distension: no JVD Palpation: no palpable S3 and no palpable S4 Rate: regular rate Rhythm: regular rhythm Heart sounds: no murmurs and no rubs GI: Inspection: Yes normal to inspection Palpation (GI): Soft to palpation, nontender and no masses Percussion: Yes normal to percussion Auscultation: normal bowel sounds : General: Yes no CVA tenderness Back/Spine/Pelvis: Back: no CVA tenderness Skin: General skin exam: no rashes or lesions noted, no ecchymosis, no erythema and no purpura Lesions: no lesions Neuro: General: oriented to person, oriented to place and oriented to time Cranial nerves: Yes CN's II-XII intact bilaterally Speech: Abnormal speech present Motor exam (neuro): 5/5 motor strength present throughout and No Asterixis during motor activity present Extrem: General: Yes no joint enlargement, Yes no pedal edema and No clubbing Objective Data Labs 08/16/22 03:38 08/16/22 03:38 Labs: Laboratory Results - last 24 hr 08/14/22 08/15/22 08/15/22 13:49 10:26 10:26 WBC RBC Hgb Hct MCV MCH MCHC RDW Plt Count MPV Absolute Nucleated RBC Nucleated RBC % (auto) PT INR APTT Sodium Potassium Chloride Carbon Dioxide Anion Gap BUN Creatinine Estim Creat Clear Calc Estimated GFR Random Glucose Fasting Glucose Calcium Urine Color Yellow Urine Appearance Cloudy Urine pH 6.0 Ur Specific [place] 1.010 Urine Protein 100 (2+) H Urine Glucose (UA) Negative Urine Ketones Negative Urine Blood Large (3+) H Urine Nitrite Negative Ur Leukocyte Esterase Moderate (2+) H Urine RBC >20 H Urine WBC 11-20 H Ur Squamous Epith Cells 3-5 Urine Bacteria 1+ Hyaline Casts 0-2 U Random Total Protein 88 H Urine Creatinine 103.75 Hepatitis A IgM Ab Nonreactive Hep Bs Antigen Negative Hep Bs Antibody NONREACTIVE Hep B Core Total Ab Nonreactive Hepatitis C Ab (EIA) Nonreactive 08/15/22 08/16/22 08/16/22 17:17 03:38 03:38 WBC 8.4 RBC 3.13 L Hgb 9.5 L Hct 25.8 L MCV 82.4 MCH 30.4 MCHC 36.8 H RDW 12.0 Plt Count 260 D MPV 12.3 Absolute Nucleated RBC 0.000 Nucleated RBC % (auto) 0.0 PT 11.6 INR 1.0 APTT 23.7 L Sodium 134 L Potassium 4.3 Chloride 88 L Carbon Dioxide 24 Anion Gap 26 H BUN 179 H Creatinine 22.84 H* Estim Creat Clear Calc 3.5 Estimated GFR 2 Random Glucose 122 H Fasting Glucose Calcium 7.8 L Urine Color Urine Appearance Urine pH Ur Specific [place] Urine Protein Urine Glucose (UA) Urine Ketones Urine Blood Urine Nitrite Ur Leukocyte Esterase Urine RBC Urine WBC Ur Squamous Epith Cells Urine Bacteria Hyaline Casts U Random Total Protein Urine Creatinine Hepatitis A IgM Ab Hep Bs Antigen Hep Bs Antibody Hep B Core Total Ab Hepatitis C Ab (EIA) 08/16/22 03:38 WBC RBC Hgb Hct MCV MCH MCHC RDW Plt Count MPV Absolute Nucleated RBC Nucleated RBC % (auto) PT INR APTT Sodium 134 L Potassium 3.9 Chloride 85 L Carbon Dioxide 27 Anion Gap 26 H BUN 178 H Creatinine 23.23 H* Estim Creat Clear Calc 3.5 Estimated GFR 2 Random Glucose Fasting Glucose 115 H Calcium 7.5 L Urine Color Urine Appearance Urine pH Ur Specific [place] Urine Protein Urine Glucose (UA) Urine Ketones Urine Blood Urine Nitrite Ur Leukocyte Esterase Urine RBC Urine WBC Ur Squamous Epith Cells Urine Bacteria Hyaline Casts U Random Total Protein Urine Creatinine Hepatitis A IgM Ab Hep Bs Antigen Hep Bs Antibody Hep B Core Total Ab Hepatitis C Ab (EIA) Microbiology Microbiology Results: Microbiology 08/14/22 Unknown Urine clean catch - Urine goss top Urine Culture - Final Lactobacillus species Procedures Date of Service Date of Service: 08/16/22 Assessment & Plan Assessment and plan (1) BARNEY (acute kidney injury): Status: Acute (2) Hyperkalemia: Status: Acute (3) Acidosis: Status: Acute (4) Hyponatremia: Status: Acute Plan Young woman with acute renal failure with severe hyperkalemia and metabolic acidosis with hyponatremia. . Acute tubular necrosis from volume depletion versus acute glomerulonephritis. Urinalysis shows dipstick positive protein and blood along with bacteria and no casts with reported. There has been no change in BUN and creatinine with the last 48 hours and at this point I favor AGN versus ATN. No evidence of obstruction based on the recent imaging. Unlikely to be allergic interstitial nephritis. Severe metabolic acidosis and hyperkalemia due to acute kidney injury. and hyponatremia due to decreased free water clearance Anemia without thrombocytopenia. Hypocalcemia urine protein creatinine ratio.= 0.84 Battery of serological tests have been ordered including BRIELLE, Anca, complement- C3 and C4, anti-GBM,etc - all pending Corrected hyperkalemia medically. Keep IV hydration . Can discontinue sodium bicarbonate and keep her on normal saline since acidosis has resolved. Watch urine output closely. Ordered kidney biopsy for a definitive diagnosis pending serologies. In view of the uremic symptoms including nausea I will arrange for dialysis. PermCath has been ordered and once the catheter is inserted I will initiate hemodialysis. I have discussed this with Anny and she is agreeable to the plan. Time Spent With Patient Time: Total time managing care of this patient today ____ minutes. Progress Note: Quality Stroke Does the patient have a stroke diagnosis?: No
[2022-08-16 11:21] LABS: Glucose, Whole Blood 104 mg/dL (60-115)
--- NOTE | 2022-08-16 12:50 | MHC.CM.PN ---
PT REPORTS SHE LIVES WITH HER MOTHER AND FATHER SHE IS INDEPENDENT WITH CARE, WORKS AND DRIVES SHE HAS NO DME AND NO SERVICES PT COMPLETED A HCP TODAY NAMING [employer] HER PRIMARY AND HER MOTHER, JESUS OLMSTEAD, HER ALTERNATE SHE IS COVID VAX AND BOOSTED PCP: SHIRLEY TORRES DCP: HOME NO SERVICES VIA FAMILY TRANSPORT
[2022-08-16 14:39] LABS: Myeloperoxidase Antibody <1.0 AI; Proteinase 3 PR3 Antibodies <1.0 AI
[2022-08-16] MEDS: 0.9 % Sodium Chloride Flush 3 ML SYRINGE IVFLUSH ×2 (16:27→21:28)
[2022-08-16] MEDS: Acetaminophen 325 MG TABLET 650 MG PO (18:20)
[2022-08-17] VITALS (7 sets, daily range): BP systolic 136–150; BP diastolic 74–91; PULSE 61–81; RESP 16–20; TEMP 36.4–37.3; O2SAT 97–100
[2022-08-17] MEDS: ondansetron HCL 4 MG/2 ML VIAL IVPUSH ×2 (02:46→17:30)
[2022-08-17] MEDS: 0.9 % Sodium Chloride 1,000 ML 100 ML IVCONT ×3 (02:48→20:54)
[2022-08-17] MEDS: Acetaminophen 325 MG TABLET 650 MG PO (04:32)
[2022-08-17 05:42] LABS: Hematocrit 25.2 % (37.0-47.0); Mean Corpuscular HGB Conc 35.7 g/dl (31.0-35.0); Mean Corpuscular Hemoglobin 30.4 pg (27.0-33.0); Mean Corpuscular Volume 85.1 fL (80.0-98.0); Platelet Count 294 X10*3/uL (160-400); Red Blood Count 2.96 X10*6/uL (4.20-5.50); Red Cell Distribution Width 12.2 % (11.0-16.0); White Blood Count 10.2 X10*3/uL (4.8-10.8)
[2022-08-17 06:15] LABS: Anion Gap 23 (12-20); Blood Urea Nitrogen 107 mg/dL (9-16); Calcium 7.3 mg/dL (8.4-10.2); Carbon Dioxide 18 mmol/L (22-29); Chloride 95 mmol/L (96-108); Creatinine Clr Calc Pharmacy 4.8; Estimated Glomerular Filt Rate 3; Glucose Fasting 69 mg/dL (60-99); Potassium 4.5 mmol/L (3.3-5.1); Sodium 131 mmol/L (135-145)
[2022-08-17] MEDS: Fluticasone Propionate 100 MCG BLST.W.DEV 2 PUFF INHALE ×2 (07:56→19:24)
[2022-08-17] MEDS: 0.9 % Sodium Chloride Flush 3 ML SYRINGE IVFLUSH ×3 (08:25→20:55)
[2022-08-17] MEDS: Clotrimazole 1 % Cream 15 GM TUBE 1 APPL TOPICAL ×2 (08:26→20:54)
--- NOTE | 2022-08-17 09:10 | P.PNIM_ITS ---
Subjective Subjective Date of Service: 08/17/22 Interval History: nausea Physical Exam Vital Signs: Vital Signs: Last Vital Signs Temp 97.6 F 08/17/22 07:42 Pulse 76 08/17/22 07:59 Resp 16 08/17/22 07:59 BP 145/78 H 08/17/22 07:42 Pulse Ox 97 08/17/22 07:42 O2 Del Method Room Air 08/17/22 07:42 BMI result Body Mass Index 22.4 General: AO X 3, no acute distress Resp: CTA bilateral, no accessory muscles used CVS: S1,S2,RRR GI: soft, non tender, non distended Neuro: motor grossly intact, alert Psych: appropriate affect, appropriate insight Objective Data Active Medications Acetaminophen (Acetaminophen 325 Mg Tablet) 650 mg PO Q6H PRN PRN Reason: Pain, Mild (Pain Scale 1-3) Last Admin: 08/17/22 04:32 Dose: 650 mg Documented By: JENNIFER Albuterol Sulfate (Albuterol Sulfate 90 Mcg 8 Gm Inhaler) 2 puff INHALE Q6H PRN PRN Reason: shortness of breath or wheezing Clotrimazole (Clotrimazole 1 % Cream 15 Gm Tube) 1 appl TOPICAL BID [facility]; Protocol Last Admin: 08/17/22 08:26 Dose: 1 appl Documented By: KJ Docusate Sodium (Docusate Sodium 100 Mg Capsule) 100 mg PO DAILY PRN PRN Reason: Constipation Fluticasone Propionate (Fluticasone Propionate 100 Mcg Blst.W.Dev) 2 puff INHALE RBID [facility] Last Admin: 08/17/22 07:56 Dose: 2 puff Documented By: GRACIE Heparin Sodium (Porcine) (Heparin Sodium,Porcine 5,000 Unit/Ml Vial) 5,000 unit SUBCUT Q12H [facility] Last Admin: 08/16/22 01:00 Dose: 5,000 unit Documented By: JENNIFER Sodium Chloride (Ns) 1,000 mls @ 100 mls/hr IVCONT .Q10H [facility] Last Admin: 08/17/22 02:48 Dose: 100 mls/hr Documented By: JENNIFER Ondansetron HCl (Ondansetron Hcl 4 Mg/2 Ml Vial) 4 mg IVPUSH Q8H PRN PRN Reason: Nausea and Vomiting Last Admin: 08/17/22 02:46 Dose: 4 mg Documented By: JENNIFER Pharmacy Consult (Consult Rx Perform Med Rec) 1 each MISCELLANE ONCE PRN PRN Reason: Consult order Sodium Chloride (0.9 % Sodium Chloride Flush 3 Ml Syringe) 3 ml IVFLUSH QSHIFT JENNIFER Last Admin: 08/17/22 08:25 Dose: 3 ml Documented By: KJ Labs 08/17/22 03:57 08/17/22 03:57 Labs: Laboratory Results - last 24 hr 08/14/22 08/14/22 08/16/22 13:49 13:49 11:18 MCV MCH MCHC RDW Plt Count MPV Absolute Nucleated RBC Nucleated RBC % (auto) Anion Gap Estim Creat Clear Calc Estimated GFR POC Glucose 104 Fasting Glucose Calcium Proteinase 3 (PR3) Ab <1.0 Myeloperoxidase Ab <1.0 Hepatitis A IgM Ab Nonreactive Hep Bs Antigen Negative Hep Bs Antibody NONREACTIVE Hep B Core Total Ab Nonreactive Hepatitis C Ab (EIA) Nonreactive 08/17/22 08/17/22 03:57 03:57 MCV 85.1 MCH 30.4 MCHC 35.7 H RDW 12.2 Plt Count 294 MPV 12.0 Absolute Nucleated RBC 0.000 Nucleated RBC % (auto) 0.0 Anion Gap 23 H Estim Creat Clear Calc 4.8 Estimated GFR 3 POC Glucose Fasting Glucose 69 Calcium 7.3 L Proteinase 3 (PR3) Ab Myeloperoxidase Ab Hepatitis A IgM Ab Hep Bs Antigen Hep Bs Antibody Hep B Core Total Ab Hepatitis C Ab (EIA) Assessment and Plan (1) BARNEY (acute kidney injury): Status: Acute Plan 27F PMH mild persistent asthma presented with malaise, nausea, found to have severe BARNEY with metabolic acidosis, hyperkalemia acute kidney injury complicated by acute metabolic acidosis, hyperkalemia, uremia hyperkalemia and acidosis resolved s/p permacath and HD initiated 08/16/22 plan for kidney biopsy today, 08/17/22 nephro following follow up GN work up mild persistent asthma stable continue inhalers dvt prophylaxis - hep sq full code reason for continued hospitalization: close monitoring of renal function Time Spent With Patient Time: Total time managing care of this patient today ____ minutes. Quality Stroke Does the patient have a stroke diagnosis?: No VTE Prior VTE?: No VTE Risk Level:: Medical - moderate - high VTE Device Contraindication: Treatment Not Indicated VTE Drug Contraindication: Treatment Not Indicated
[2022-08-17] MEDS: Prochlorperazine Edisylate 10 MG/2 ML VIAL 5 MG IVPUSH (09:24)
--- NOTE | 2022-08-17 12:30 | PC.NURSE ---
Patient to HD at this time
[2022-08-17 22:13] LABS: Prot Elec - Albumin 2.6 g/dL (3.8-4.8); Prot Elec - Alpha1 0.5 g/dL (0.2-0.3); Prot Elec - Alpha2 0.6 g/dL (0.5-0.9); Prot Elec - Beta 1 0.2 g/dL (0.4-0.6); Prot Elec - Beta 2 0.3 g/dL (0.2-0.5); Prot Elec - Gamma 0.7 g/dL (0.8-1.7); Prot Elec - Total Protein 4.8 g/dL (6.1-8.1)
[2022-08-18] VITALS (9 sets, daily range): BP systolic 134–156; BP diastolic 83–93; PULSE 68–82; RESP 16–20; TEMP 36.9–37.7; O2SAT 98–100
[2022-08-18 00:58] LABS: Complement C3 101 mg/dL (83-193)
[2022-08-18] MEDS: 0.9 % Sodium Chloride 1,000 ML 100 ML IVCONT (06:37)
[2022-08-18] MEDS: Fluticasone Propionate 100 MCG BLST.W.DEV 2 PUFF INHALE ×2 (07:58→19:18)
[2022-08-18 08:04] LABS: Anion Gap 18 (12-20); Blood Urea Nitrogen 60 mg/dL (9-16); Carbon Dioxide 20 mmol/L (22-29); Chloride 100 mmol/L (96-108); Creatinine Clr Calc Pharmacy 6.5; Estimated Glomerular Filt Rate 4; Glucose Fasting 71 mg/dL (60-99); Potassium 4.3 mmol/L (3.3-5.1); Sodium 134 mmol/L (135-145)
[2022-08-18] MEDS: Clotrimazole 1 % Cream 15 GM TUBE 1 APPL TOPICAL ×2 (08:37→21:10)
[2022-08-18] MEDS: 0.9 % Sodium Chloride Flush 3 ML SYRINGE IVFLUSH ×2 (08:39→21:09)
--- NOTE | 2022-08-18 08:46 | MHC.CM.PN ---
EMR REVIEWED, PT W/BARNEY AND NEW HD STARTED ON 08/16, PER HOSPITALIST ANTIC PT WILL NEED OUTPT HD UPON D/C WHICH WILL BE SET UP BY NEPHROLOGY, CM WILL CONT TO FOLLOW D/C NEEDS.
--- NOTE | 2022-08-18 10:55 | P.PNNP_ITS ---
Subjective Subjective Date of Service: 08/17/22 Interval history: had 1st dialysis yesterday. Still has nausea she was scheduled for a biopsy today but for unknown reasons this has been p ostponed to tomorrow. Physical Exam Vital Signs: Vital Signs: Last Vital Signs Temp 99.5 F 08/18/22 07:57 Pulse 76 08/18/22 08:00 Resp 18 08/18/22 08:00 BP 135/83 08/18/22 07:57 Pulse Ox 99 08/18/22 07:57 O2 Del Method Room Air 08/18/22 07:57 BMI result Body Mass Index 22.4 Const: General: healthy appearing and well developed Nutritional Appearance: well nourished Orientation/consciousness: oriented to person, oriented to place and oriented to time HEENT: General nose exam: no nasal discharge noted and no epistaxis Face and sinus: Yes normal facial exam and No erythema Eyes: General: appearance normal, both eyes and all related structures Sclerae: sclerae normal Neck: Neck: Yes no lymphadenopathy, Yes supple, No tender and Yes no JVD Thyroid: Thyroid normal Resp: Effort & Inspection: normal respiratory effort Auscultation: clear to auscultation bilaterally, no rales and no wheezes Cardio: Jugular venous distension: no JVD Palpation: no palpable S3 and no palpable S4 Rate: regular rate Rhythm: regular rhythm Heart sounds: no murmurs and no rubs GI: Inspection: Yes normal to inspection Palpation (GI): Soft to palpation, nontender and no masses Percussion: Yes normal to percussion Auscultation: normal bowel sounds : General: Yes no CVA tenderness Back/Spine/Pelvis: Back: no CVA tenderness Skin: General skin exam: no rashes or lesions noted, no ecchymosis, no erythema and no purpura Lesions: no lesions Neuro: General: oriented to person, oriented to place and oriented to time Cranial nerves: Yes CN's II-XII intact bilaterally Speech: Abnormal speech present Motor exam (neuro): 5/5 motor strength present throughout and No Asterixis during motor activity present Extrem: General: Yes no joint enlargement, Yes no pedal edema and No clubbing Objective Data Labs 08/17/22 03:57 08/18/22 07:29 Labs: Laboratory Results - last 24 hr 08/14/22 08/15/22 08/18/22 13:49 05:51 07:29 Sodium 134 L Potassium 4.3 Chloride 100 Carbon Dioxide 20 L Anion Gap 18 BUN 60 H Creatinine 12.60 H* Estim Creat Clear Calc 6.5 Estimated GFR 4 Fasting Glucose 71 Calcium 8.0 L D Total Protein (PEP) 4.8 L Albumin (PEP) 2.6 L Oswtp-0-Cjwsciriv 0.5 H Sldtj-1-Bpxbgyarb 0.6 Xbsl-0-Lrxwjppd 0.2 L Biyy-8-Oopajnbh 0.3 Gamma Globulins 0.7 L PEP Interpretation SEE NOTE Complement C3 101 Complement C4 32 Microbiology Microbiology Results: Microbiology 08/14/22 Unknown Urine clean catch - Urine goss top Urine Culture - Final Lactobacillus species Procedures Date of Service Date of Service: 08/17/22 Assessment & Plan Assessment and plan (1) BARNEY (acute kidney injury): Status: Acute (2) Hyperkalemia: Status: Acute (3) Acidosis: Status: Acute (4) Hyponatremia: Status: Acute Plan Young woman with acute renal failure with severe hyperkalemia and metabolic acidosis with hyponatremia. . Acute tubular necrosis from volume depletion versus acute glomerulonephritis. Urinalysis shows dipstick positive protein and blood along with bacteria and no casts with reported. There has been no change in BUN and creatinine with the last 48 hours and at this point I favor AGN versus ATN. No evidence of obstruction based on the recent imaging. Unlikely to be allergic interstitial nephritis. Severe metabolic acidosis and hyperkalemia due to acute kidney injury. and hyponatremia due to decreased free water clearance Anemia without thrombocytopenia. Hypocalcemia urine protein creatinine ratio.= 0.84 So far MPO and PR3 are negative other serological tests are pending Battery of serological tests have been ordered including BRIELLE, Anca, complement- C3 and C4, anti-GBM,etc - all pending Corrected hyperkalemia medically. Keep IV hydration . Watch urine output closely. Ordered kidney biopsy for a definitive diagnosis pending serologies. Dialysis again today. Time Spent With Patient Time: Total time managing care of this patient today ____ minutes. Progress Note: Quality Stroke Does the patient have a stroke diagnosis?: No
--- NOTE | 2022-08-18 10:58 | P.PNNP_ITS ---
Subjective Subjective Date of Service: 08/19/22 Interval history: events noted. Biopsy has been postponed to today. She had 2nd dialysis yesterday. She is feeling better and nausea has improved. Physical Exam Vital Signs: Vital Signs: Last Vital Signs Temp 99.5 F 08/18/22 07:57 Pulse 76 08/18/22 08:00 Resp 18 08/18/22 08:00 BP 135/83 08/18/22 07:57 Pulse Ox 99 08/18/22 07:57 O2 Del Method Room Air 08/18/22 07:57 BMI result Body Mass Index 22.4 Const: General: healthy appearing, comfortable and well developed Nu tritional Appearance: well nourished Orientation/consciousness: oriented to person, oriented to place and oriented to time HEENT: General nose exam: no nasal discharge noted and no epistaxis Face and sinus: Yes normal facial exam and No erythema Eyes: General: appearance normal, both eyes and all related structures Sclerae: sclerae normal Neck: Neck: Yes no lymphadenopathy, Yes supple, No tender and Yes no JVD Thyroid: Thyroid normal Resp: Effort & Inspection: normal respiratory effort Auscultation: clear to auscultation bilaterally, no rales and no wheezes Cardio: Jugular venous distension: no JVD Palpation: no palpable S3 and no palpable S4 Rate: regular rate Rhythm: regular rhythm Heart sounds: no murmurs and no rubs GI: Inspection: Yes normal to inspection Palpation (GI): Soft to palpation, nontender and no masses Percussion: Yes normal to percussion Auscultation: normal bowel sounds : General: Yes no CVA tenderness Back/Spine/Pelvis: Back: no CVA tenderness Skin: General skin exam: no rashes or lesions noted, no ecchymosis, no erythema and no purpura Lesions: no lesions Neuro: General: oriented to person, oriented to place and oriented to time Cranial nerves: Yes CN's II-XII intact bilaterally Speech: Abnormal speech present Motor exam (neuro): 5/5 motor strength present throughout and No Asterixis during motor activity present Extrem: General: Yes no joint enlargement, Yes no pedal edema and No clubbing Objective Data Labs 08/17/22 03:57 08/18/22 07:29 Labs: Laboratory Results - last 24 hr 08/14/22 08/15/22 08/18/22 13:49 05:51 07:29 Sodium 134 L Potassium 4.3 Chloride 100 Carbon Dioxide 20 L Anion Gap 18 BUN 60 H Creatinine 12.60 H* Estim Creat Clear Calc 6.5 Estimated GFR 4 Fasting Glucose 71 Calcium 8.0 L D Total Protein (PEP) 4.8 L Albumin (PEP) 2.6 L Ytaxw-8-Ujudvcrex 0.5 H Vqesg-1-Vjomhmleu 0.6 Njde-0-Wzlkdonk 0.2 L Dmnl-6-Oegtrreg 0.3 Gamma Globulins 0.7 L PEP Interpretation SEE NOTE Complement C3 101 Complement C4 32 Microbiology Microbiology Results: Microbiology 08/14/22 Unknown Urine clean catch - Urine goss top Urine Culture - Final Lactobacillus species Procedures Date of Service Date of Service: 08/18/22 Assessment & Plan Assessment and plan (1) BARNEY (acute kidney injury): Status: Acute (2) Hyperkalemia: Status: Acute (3) Acidosis: Status: Acute (4) Hyponatremia: Status: Acute Plan Young woman with acute renal failure with severe hyperkalemia and metabolic acidosis with hyponatremia. . Acute tubular necrosis from volume depletion versus acute glomerulonephritis. Urinalysis shows dipstick positive protein and blood along with bacteria and no casts with reported.. No evidence of obstruction based on the recent imaging. Unlikely to be allergic interstitial nephritis. Severe metabolic acidosis and hyperkalemia due to acute kidney injury. and hyponatremia due to decreased free water clearance: All improving. Anemia without thrombocytopenia. Hypocalcemia urine protein creatinine ratio.= 0.84 So far MPO and PR3 are negative Complement C3-C4 are within normal range. - other serological tests are pending Corrected hyperkalemia medically. Keep IV hydration Today until biopsy is completed. Once she is able to tolerate oral diet IV fluids can be discontinued. . Watch urine output closely. Await kidney biopsy today Dialysis again tomorrow Time Spent With Patient Time: Total time managing care of this patient today ____ minutes. Progress Note: Quality Stroke Does the patient have a stroke diagnosis?: No
--- NOTE | 2022-08-18 11:53 | HO.RADPN ---
RADIOLOGY Narrative Narrative: Lower pole left renal 18 g core biopsy using coaxial system. Small amount of perinephric hemorrhage stable on serial exams.
--- NOTE | 2022-08-18 14:29 | P.PNIM_ITS ---
Subjective Subjective Date of Service: 08/18/22 Interval History: Seen and evaluated Feels better after starting dialysis Creatinine still elevated Plan for kidney biopsy today no other overnight events Review of Systems Review of Systems: Yes all other systems are reviewed and are negative Physical Exam Vital Signs: Vital Signs: Last Vital Signs Temp 98.5 F 08/18/22 12:15 Pulse 72 08/18/22 12:29 Resp 16 08/18/22 12:29 BP 154/92 H 08/18/22 12:29 Pulse Ox 99 08/18/22 12:29 O2 Del Method Room Air 08/18/22 12:29 BMI result Body Mass Index 22.4 Const: Other: Constitutional : Awake, interactive, not in distress Neck : Normal inspection, Supple Cardiovascular : RRR, no JVP, no lower extremity edema Respiratory : good bilateral air entry, no crackles, wheezes or rhonchi Gastrointestinal: soft, lax, Normal bowel sounds, Non tender Skin : Warm, Dry, Permacath in place with no surrounding erythema Neurological : Alert & oriented x3, No focal deficit Objective Data Active Medications Acetaminophen (Acetaminophen 325 Mg Tablet) 650 mg PO Q6H PRN PRN Reason: Pain, Mild (Pain Scale 1-3) Last Admin: 08/17/22 04:32 Dose: 650 mg Documented By: JENNIFER Albuterol Sulfate (Albuterol Sulfate 90 Mcg 8 Gm Inhaler) 2 puff INHALE Q6H PRN PRN Reason: shortness of breath or wheezing Clotrimazole (Clotrimazole 1 % Cream 15 Gm Tube) 1 appl TOPICAL BID [facility]; Protocol Last Admin: 08/18/22 08:37 Dose: 1 appl Documented By: [email or web address] Docusate Sodium (Docusate Sodium 100 Mg Capsule) 100 mg PO DAILY PRN PRN Reason: Constipation Fluticasone Propionate (Fluticasone Propionate 100 Mcg Blst.W.Dev) 2 puff INHALE RBID [facility] Last Admin: 08/18/22 07:58 Dose: 2 puff Documented By: CHONG Heparin Sodium (Porcine) (Heparin Sodium,Porcine 5,000 Unit/Ml Vial) 5,000 unit SUBCUT Q12H [facility] Last Admin: 08/16/22 01:00 Dose: 5,000 unit Documented By: JENNIFER Ondansetron HCl (Ondansetron Hcl 4 Mg/2 Ml Vial) 4 mg IVPUSH Q8H PRN PRN Reason: Nausea and Vomiting Last Admin: 08/17/22 17:30 Dose: 4 mg Documented By: KJ Pharmacy Consult (Consult Rx Perform Med Rec) 1 each MISCELLANE ONCE PRN PRN Reason: Consult order Prochlorperazine Edisylate (Prochlorperazine Edisylate 10 Mg/2 Ml Vial) 5 mg IVPUSH Q6H PRN PRN Reason: nasuea Last Admin: 08/17/22 09:24 Dose: 5 mg Documented By: KJ Sodium Chloride (0.9 % Sodium Chloride Flush 3 Ml Syringe) 3 ml IVFLUSH [facility] Last Admin: 08/18/22 08:39 Dose: 3 ml Documented By: FOSTEKR Labs 08/17/22 03:57 08/18/22 07:29 Labs: Laboratory Results - last 24 hr 08/14/22 08/15/22 08/18/22 13:49 05:51 07:29 Anion Gap 18 Estim Creat Clear Calc 6.5 Estimated GFR 4 Fasting Glucose 71 Calcium 8.0 L D Total Protein (PEP) 4.8 L Albumin (PEP) 2.6 L Mtkov-2-Pbruavoca 0.5 H Lfxks-2-Tgoqcxfyy 0.6 Tzto-5-Mxycuhhy 0.2 L Tsng-4-Rcukvnrr 0.3 Gamma Globulins 0.7 L PEP Interpretation SEE NOTE Complement C3 101 Complement C4 32 Assessment and Plan (1) BARNEY (acute kidney injury): Status: Acute (2) Uremia: Status: Acute Plan 27F PMH mild persistent asthma presented with malaise, nausea, found to have severe BARNEY with metabolic acidosis, hyperkalemia acute kidney injury complicated by acute metabolic acidosis, hyperkalemia, uremia hyperkalemia and acidosis resolved s/p permacath and HD initiated 08/16/22 MPO and PR3 are negative, normal C3,C4 pending rest of GN work up plan for kidney biopsy today Continue IVF nephro following, HD tomorrow mild persistent asthma stable continue inhalers dvt prophylaxis - hep sq full code reason for continued hospitalization: close monitoring of renal function and need of dialysis Time Spent With Patient Time: Total time managing care of this patient today ____ minutes. Quality Stroke Does the patient have a stroke diagnosis?: No VTE Prior VTE?: No VTE Risk Level:: Medical - moderate - high VTE Device Contraindication: Treatment Not Indicated VTE Drug Contraindication: Treatment Not Indicated
[2022-08-18] MEDS: Acetaminophen 325 MG TABLET 650 MG PO (15:49)
[2022-08-18 21:53] LABS: Anti Glomerular Basement Memb <1.0 AI
[2022-08-19] VITALS: BP 138/82; PULSE 89; RESP 15; TEMP 37.1; O2SAT 98
[2022-08-19 04:00] VITALS: BP 148/87; PULSE 77; RESP 14; TEMP 37.2; O2SAT 100
--- NOTE | 2022-08-19 07:00 | CA_ITS ---
Transthoracic Echocardiogram Patient (Last, First, Middle): Anny Yun, Gender: Female Date of : 1995 Age: 27 Procedure Date: 08/19/2022 Procedure Type: Transthoracic Echocardiogram Location: [facility] [place] Height: 170.18 cm Weight: 64.86 kg BSA: 1.75 m2 Heart Rate: bpm BP: 148 / 87 mmHg Quality Control Supervisor: CHARLES Referring MD: Aniyah Devries MD Technician: Alex Tate MD Symptoms: acute renal failure, rule out vegetations. Study Quality: Fair ECG Rhythm: Sinus Conclusions: - 1. Normal LV systolic and diastolic function 2. There are no obvious significant vegetations seen on this study but cannot be entirely ruled out 3. Mild mitral regurgitation 4. Normal RV systolic pressure 5. No pericardial effusion Findings Left Ventricle Normal left ventricular size, thickness, and systolic function. The visually estimated ejection fraction is between 65-70%. Spectral Doppler is indicative of a normal filling pattern. Peak GLS is -25.9%, within normal limits. Right Ventricle Normal right ventricular cavity size and systolic function. Atria Both atria are normal in size. Interatrial shunt cannot be excluded. Aortic Valve The aortic valve was not well visualized. There is no aortic valve stenosis. There is no aortic valve regurgitation. Mitral Valve There is mild anterior mitral leaflet thickening. There is mild mitral valve regurgitation. There is no mitral valve stenosis. Pulmonic Valve The pulmonic valve was not well visualized. Tricuspid Valve Likely normal tricuspid valve structure and function. There is mild tricuspid valve regurgitation. The right ventricular systolic pressure is normal. The right ventricular systolic pressure is 29 mmHg. Normal right atrial pressure. There is no evidence of pulmonary hypertension. Great Vessels All visible segments of the aorta are normal in size. The pulmonary artery was not well visualized. Venous The inferior vena cava is normal in size and collapses greater than 50% with inspiration. Pericardium/Pleural There is no evidence of pericardial effusion. Prior Study Comparison No previous study in the last 5 years for comparison Measurements 2D Linear Measurements IVSd: 0.87 0.6-0.9/0.6-1.0 cm LVIDd: 4.52 3.9-5.3/4.2-5.9 cm LVIDd Index: 2.58 2.4-3.2/2.2-3.1 cm/m2 LVIDs: 2.69 2.0-3.6 cm LVPWd: 0.97 0.7-1.1 cm LA Diam: 3.30 2.7-3.8/3.0-4.0 cm LAIDs Index: 1.89 1.5-2.3 cm/m2 LV Mass: 171.64 67-162/88-224 g LV Mass Index: 98.08 43-95/49-115 g/m2 LVOT Diam: 1.90 3.0+(-)1.3 cm 2D Systolic Function EF 4C: 64.00 >55% EF 2C: 72.40 >55% EF BiP: 69.10 >55% Mitral Valve MV Pk E: 0.81 MV PK A: 0.53 MV Decel Time: 157.00 E/A: 1.50 E'Lateral: 14.00 E'Medial: 12.80 E/E' Med: 6.30 E/E' Lat: 5.80 PHT: 46.00 MVA PHT: 4.78 Decel Hancock: 5.13 Aortic Valve AoV Pk Geo: 1.97 AoV Mn Geo: 1.27 AoV VTI: 0.37 AoV Pk Grad: 16.00 Aov Mn Grad: 7.00 KARLEY Cont.VTI: 2.18 LVOT LVOT Pk Geo: 1.50 LVOT Mn Geo: 0.97 LVOT VTI: 0.28 LVOT Pk Grad: 9.00 LVOT Mn Grad: 5.00 LVOT Diam: 1.90 LVOT Area: 2.84 Diastolic Function MV Pk E: 0.81 MV Pk A: 0.53 E/A: 1.50 E'Medial: 12.80 E/E' Med: 6.30 E' Laterial: 14.00 E/E' Lat: 5.80 Right Ventricle TAPSE (mm): 30.10 TVS' Geo: 15.70 Tricuspid Valve TR Pk Geo: 2.55 TR Pk Grad: 26.00 RA Press: 3.00 RVSP: 29.00 Great Vessels Aorta Sinus of Valsalva: 2.62 2.0-3.5 cm Updated in Other Vendor System with Status of Final Alex Tate MD electronically signed on 08/19/2022 5:09:38 PM with status of Final
[2022-08-19 07:31] LABS: Anion Gap 16 (12-20); Blood Urea Nitrogen 65 mg/dL (9-16); Calcium 8.2 mg/dL (8.4-10.2); Carbon Dioxide 20 mmol/L (22-29); Chloride 99 mmol/L (96-108); Creatinine Clr Calc Pharmacy 5.7; Estimated Glomerular Filt Rate 3; Glucose Random 89 mg/dL (60-115); Potassium 4.5 mmol/L (3.3-5.1); Sodium 130 mmol/L (135-145)
[2022-08-19 10:56] LABS: Hematocrit 25.7 % (37.0-47.0); Hemoglobin 9.2 g/dl (12.0-16.0); Mean Corpuscular HGB Conc 35.8 g/dl (31.0-35.0); Mean Corpuscular Hemoglobin 31.1 pg (27.0-33.0); Mean Corpuscular Volume 86.8 fL (80.0-98.0); Mean Platelet Volume 11.1 fL (9.4-12.3); Platelet Count 354 X10*3/uL (160-400); Red Blood Count 2.96 X10*6/uL (4.20-5.50); Red Cell Distribution Width 12.2 % (11.0-16.0); White Blood Count 18.2 X10*3/uL (4.8-10.8)
--- NOTE | 2022-08-19 11:13 | PM.PNNEP ---
Subjective Subjective Date of Service: 08/30/22 Interval history: Seen during HD Had kidney biospy yesterday HD lines clotted today Physical Exam Vital Signs: Vital Signs: Last Vital Signs Temp 99.0 F 08/19/22 04:00 Pulse 77 08/19/22 04:00 Resp 14 08/19/22 04:00 BP 148/87 H 08/19/22 04:00 Pulse Ox 100 08/19/22 04:00 O2 Del Method Room Air 08/19/22 04:00 BMI result Body Mass Index 22.4 Const: General: healthy appearing, comfortable and well developed Nutritional Appearance: well nourished Orientation/consciousness: oriented to person, oriented to place and oriented to time HEENT: General nose exam: no nasal discharge noted and no epistaxis Face and sinus: Yes normal facial exam and No erythema Eyes: General: appearance normal, both eyes and all related structures Sclerae: sclerae normal Neck: Neck: Yes no lymphadenopathy, Yes supple, No tender and Yes no JVD Thyroid: Thyroid normal Resp: Effort & Inspection: normal respiratory effort Auscultation: clear to auscultation bilaterally, no rales and no wheezes Cardio: Jugular venous distension: no JVD Palpation: no palpable S3 and no palpable S4 Rate: regular rate Rhythm: regular rhythm Heart sounds: no murmurs and no rubs GI: Inspection: Yes normal to inspection Palpation (GI): Soft to palpation, nontender and no masses Percussion: Yes normal to percussion Auscultation: normal bowel sounds : General: Yes no CVA tenderness Back/Spine/Pelvis: Back: no CVA tenderness Skin: General skin exam: no rashes or lesions noted, no ecchymosis, no erythema and no purpura Lesions: no lesions Neuro: General: oriented to person, oriented to place and oriented to time Cranial nerves: Yes CN's II-XII intact bilaterally Speech: Abnormal speech present Motor exam (neuro): 5/5 motor strength present throughout and No Asterixis during motor activity present Extrem: General: Yes no joint enlargement, Yes no pedal edema and No clubbing Objective Data Labs 08/19/22 10:43 08/19/22 06:35 Labs: Laboratory Results - last 24 hr 08/15/22 08/19/22 08/19/22 05:51 06:35 10:43 WBC 18.2 H RBC 2.96 L Hgb 9.2 L Hct 25.7 L MCV 86.8 MCH 31.1 MCHC 35.8 H RDW 12.2 Plt Count 354 MPV 11.1 Absolute Nucleated RBC 0.000 Nucleated RBC % (auto) 0.0 Sodium 130 L Potassium 4.5 Chloride 99 Carbon Dioxide 20 L Anion Gap 16 BUN 65 H Creatinine 14.13 H* Estim Creat Clear Calc 5.7 Estimated GFR 3 Random Glucose 89 Calcium 8.2 L Abnorm Protein Band 1 TNP Abnorm Protein Band 2 TNP Abnorm Protein Band 3 TNP Glomerular Base Memb Ab <1.0 Microbiology Microbiology Results: Microbiology 08/14/22 Unknown Urine clean catch - Urine goss top Urine Culture - Final Lactobacillus species Procedures Date of Service Date of Service: 08/19/22 Assessment & Plan Assessment and plan (1) BARNEY (acute kidney injury): Status: Acute (2) Hyperkalemia: Status: Acute (3) Acidosis: Status: Acute (4) Hyponatremia: Status: Acute Plan Young woman with acute renal failure with severe hyperkalemia and metabolic acidosis with hyponatremia. . Acute tubular necrosis from volume depletion versus acute glomerulonephritis. Urinalysis shows dipstick positive protein and blood along with bacteria and no casts with reported.. No evidence of obstruction based on the recent imaging. Unlikely to be allergic interstitial nephritis. Severe metabolic acidosis and hyperkalemia due to acute kidney injury. and hyponatremia due to decreased free water clearance: All improving. Anemia without thrombocytopenia . Hypocalcemia urine protein creatinine ratio.= 0.84 So far MPO and PR3 are negative Complement C3-C4 are within normal range. - other serological tests including BRIELLE, are pending Corrected hyperkalemia medically. DC IV hydration s/p Kidney biopsy in 08/18/[address] Stanton/[facility] pathologist No prelim finding yet. Probably later today or tomorrow morning Right UE edema r/o DVT ( same side as permcath) Ordered Anti-cardiolipin and Lupus anticoagulant BRIELLE pending Repeat CBC ordered Time Spent With Patient Time: Total time managing care of this patient today ____ minutes. Progress Note: Quality Stroke Does the patient have a stroke diagnosis?: No
[2022-08-19 13:20] VITALS: BP 156/86; PULSE 63; RESP 18; TEMP 37.6; O2SAT 100
--- NOTE | 2022-08-19 14:18 | P.PNIM_ITS ---
Subjective Subjective Date of Service: 08/19/22 Interval History: Seen and evaluated Feels weak [place] [id number] today, no clear source of infection Permacath clotted this morning Creatinine still going up off dialysis no other overnight events Physical Exam Vital Signs: Vital Signs: Last Vital Signs Temp 99.7 F 08/19/22 13:20 Pulse 63 08/19/22 13:20 Resp 18 08/19/22 13:20 BP 156/86 H 08/19/22 13:20 Pulse Ox 100 08/19/22 13:20 O2 Del Method Room Air 08/19/22 13:20 BMI result Body Mass Index 22.4 Const: Other: Constitutional : Awake, interactive, not in distress Neck : Normal inspection, Supple Cardiovascular : RRR, no JVP, no lower extremity edema Respiratory : good bilateral air entry, no crackles, wheezes or rhonchi Gastrointestinal: soft, lax, Normal bowel sounds, Non tender Skin : Warm, Dry, Permacath in place with no surrounding erythema , RUE edema and mild tenderness Neurological : Alert & oriented x3, No focal deficit Objective Data Active Medications Acetaminophen (Acetaminophen 325 Mg Tablet) 650 mg PO Q6H PRN PRN Reason: Pain, Mild (Pain Scale 1-3) Last Admin: 08/18/22 15:49 Dose: 650 mg Documented By: RASHMI Albuterol Sulfate (Albuterol Sulfate 90 Mcg 8 Gm Inhaler) 2 puff INHALE Q6H PRN PRN Reason: shortness of breath or wheezing Clotrimazole (Clotrimazole 1 % Cream 15 Gm Tube) 1 appl TOPICAL BID [facility]; Protocol Last Admin: 08/18/22 21:10 Dose: 1 appl Documented By: JENNIFER Docusate Sodium (Docusate Sodium 100 Mg Capsule) 100 mg PO DAILY PRN PRN Reason: Constipation Fluticasone Propionate (Fluticasone Propionate 100 Mcg Blst.W.Dev) 2 puff INHALE RBID [facility] Last Admin: 08/19/22 08:24 Dose: Not Given Documented By: SEFERINO Non-Admin Reason: See Note Heparin Sodium (Porcine) (Heparin Sodium,Porcine 5,000 Unit/Ml Vial) 5,000 unit SUBCUT Q12H [facility] Last Admin: 08/16/22 01:00 Dose: 5,000 unit Documented By: JENNIFER Ondansetron HCl (Ondansetron Hcl 4 Mg/2 Ml Vial) 4 mg IVPUSH Q8H PRN PRN Reason: Nausea and Vomiting Last Admin: 08/17/22 17:30 Dose: 4 mg Documented By: KJ Pharmacy Consult (Consult Rx Perform Med Rec) 1 each MISCELLANE ONCE PRN PRN Reason: Consult order Prochlorperazine Edisylate (Prochlorperazine Edisylate 10 Mg/2 Ml Vial) 5 mg IVPUSH Q6H PRN PRN Reason: nasuea Last Admin: 08/17/22 09:24 Dose: 5 mg Documented By: KJ Sodium Chloride (0.9 % Sodium Chloride Flush 3 Ml Syringe) [facility] Last Admin: 08/19/22 13:40 Dose: Not Given Documented By: CRISTAL Non-Admin Reason: dialysis Labs 08/19/22 10:43 08/19/22 06:35 Labs: Laboratory Results - last 24 hr 08/15/22 08/19/22 08/19/22 05:51 06:35 10:43 MCV 86.8 MCH 31.1 MCHC 35.8 H RDW 12.2 Plt Count 354 MPV 11.1 Absolute Nucleated RBC 0.000 Nucleated RBC % (auto) 0.0 Anion Gap 16 Estim Creat Clear Calc 5.7 Estimated GFR 3 Random Glucose 89 Calcium 8.2 L Abnorm Protein Band 1 TNP Abnorm Protein Band 2 TNP Abnorm Protein Band 3 TNP Glomerular Base Memb Ab <1.0 Assessment and Plan (1) BARNEY (acute kidney injury): Status: Acute (2) Uremia: Status: Acute (3) Hyponatremia: Status: Acute Plan 27F PMH mild persistent asthma presented with malaise, nausea, found to have severe BARNEY with metabolic acidosis, hyperkalemia acute kidney injury complicated by acute metabolic acidosis, hyperkalemia, uremia hyperkalemia and acidosis resolved s/p permacath and HD initiated 08/16/22 MPO and PR3 are negative, normal C3,C4 pending rest of GN work up pending result of kidney biopsy Continue IVF nephro following, HD today RUE swelling with evidence of blocked permacath, raising suspecion of DVT pending US hypercoagulable work up Leukocytosis No signs of infection, could be reactive R\O DVT monitor for any signs of infection hyponatremia, acute related to renal failure correction with HD mild persistent asthma stable continue inhalers dvt prophylaxis - hep sq full code reason for continued hospitalization: close monitoring of renal function and need of dialysis Time Spent With Patient Time: Total time managing care of this patient today ____ minutes. Quality Stroke Does the patient have a stroke diagnosis?: No VTE Prior VTE?: No VTE Risk Level:: Medical - moderate - high VTE Device Contraindication: Treatment Not Indicated VTE Drug Contraindication: Treatment Not Indicated
[2022-08-19 16:16] VITALS: BP 142/85; PULSE 87; RESP 20; TEMP 37.1; O2SAT 100
[2022-08-19] MEDS: Doxycycline Monohydrate 100 MG CAPSULE PO (18:15)
[2022-08-19] MEDS: 0.9 % Sodium Chloride Flush 3 ML SYRINGE IVFLUSH ×2 (18:15→20:09)
[2022-08-19] MEDS: levoFLOXacin/D5W 750 MG/150 ML PIGGYBACK 100 MG IV (18:16)
[2022-08-19 19:37] LABS: Appearance Urine Cloudy; Color Urine BROWN; Glucose Urine UA Negative (Negative); Leukocyte Esterase Urine Large (3+) (Negative); Nitrite Urine Positive (Negative); UMIC TRIGGER UA YES; Urine Blood Large (3+) (Negative); Urine Ketones Negative (Negative); Urine Protein 100 (2+) mg/dL (Neg-Trace)
[2022-08-19 19:43] VITALS: BP 158/81; PULSE 88; RESP 20; TEMP 37.6; O2SAT 100
[2022-08-19 19:53] LABS: Bacteria Urine 3+ (None Seen); Hyaline Casts Urine 0-2 /LPF (0-2); RBC Urine >20 /HPF (0-2); Squamous Epithelial Cell Urine >20 /HPF (0-2); WBC Urine >50 /HPF (0-5)
[2022-08-19] MEDS: Clotrimazole 1 % Cream 15 GM TUBE 1 APPL TOPICAL (20:13)
--- NOTE | 2022-08-19 21:47 | PC.NURSE ---
Urine sent to lab, not enough to run test, pt is on dialysis and output is very little.
[2022-08-19 23:40] VITALS: BP 135/84; PULSE 87; RESP 17; TEMP 36.2; O2SAT 97
[2022-08-20] VITALS (7 sets, daily range): BP systolic 132–158; BP diastolic 82–95; PULSE 80–102; RESP 16–20; TEMP 36.2–37.2; O2SAT 98–100
[2022-08-20 02:49] LABS: Appearance Urine Cloudy; Color Urine Yellow; Glucose Urine UA Negative (Negative); Leukocyte Esterase Urine Large (3+) (Negative); Nitrite Urine Negative (Negative); PH 7.5 (5.0-9.0); UMIC TRIGGER UA YES; Urine Blood Large (3+) (Negative); Urine Ketones Negative (Negative); Urine Protein 300 (3+) mg/dL (Neg-Trace)
[2022-08-20 03:41] LABS: Bacteria Urine 1+ (None Seen); Hyaline Casts Urine 0-2 /LPF (0-2); RBC Urine >20 /HPF (0-2); WBC Clumps Urine Present; WBC Urine >50 /HPF (0-5)
[2022-08-20] MEDS: Doxycycline Monohydrate 100 MG CAPSULE PO ×2 (05:33→17:15)
[2022-08-20 07:46] LABS: EOS Counted 1 CELLS; EOS QC POS YES; EOS Stain Quality OK YES; WBC, Counted 100 CELLS
[2022-08-20] MEDS: Fluticasone Propionate 100 MCG BLST.W.DEV 2 PUFF INHALE ×2 (08:01→19:59)
[2022-08-20 08:02] LABS: Baso%MD 0.6 %; Eos%MD 2.1 %; Hematocrit 22.6 % (37.0-47.0); Hematocrit 22.8 % (37.0-47.0); Hemoglobin 7.8 g/dl (12.0-16.0); Hemoglobin 7.9 g/dl (12.0-16.0); IG%MD 0.6 %; Lymph%MD 7.3 %; Mean Corpuscular HGB Conc 34.5 g/dl (31.0-35.0); Mean Corpuscular HGB Conc 34.6 g/dl (31.0-35.0); Mean Corpuscular Hemoglobin 30.4 pg (27.0-33.0); Mean Corpuscular Hemoglobin 30.6 pg (27.0-33.0); Mean Corpuscular Volume 87.9 fL (80.0-98.0); Mean Corpuscular Volume 88.4 fL (80.0-98.0); Mean Platelet Volume 11.1 fL (9.4-12.3); Mean Platelet Volume 11.2 fL (9.4-12.3); Neut%MD 82.4 %; Platelet Count 351 X10*3/uL (160-400); Platelet Count 356 X10*3/uL (160-400); Red Blood Count 2.57 X10*6/uL (4.20-5.50); Red Blood Count 2.58 X10*6/uL (4.20-5.50); Red Cell Distribution Width 12.1 % (11.0-16.0); Red Cell Distribution Width 12.2 % (11.0-16.0); White Blood Count 13.5 X10*3/uL (4.8-10.8); White Blood Count 13.9 X10*3/uL (4.8-10.8)
[2022-08-20 08:20] LABS: Anion Gap 13 (12-20); Blood Urea Nitrogen 37 mg/dL (9-16); Calcium 8.1 mg/dL (8.4-10.2); Carbon Dioxide 25 mmol/L (22-29); Chloride 98 mmol/L (96-108); Creatinine Clr Calc Pharmacy 8.5; Estimated Glomerular Filt Rate 5; Glucose Random 87 mg/dL (60-115); Sodium 132 mmol/L (135-145)
[2022-08-20 08:43] LABS: Anti Nuclear Antibody Screen NEGATIVE (NEGATIVE)
[2022-08-20 09:03] LABS: Band Neutrophils Percent 1 % (3-5); Eosinophils Absolute Manual 0.3 X10*3/uL (0.0-0.4); Eosinophils Percent Manual 2 % (0-4); Lymphocytes Absolute Manual 0.6 X10*3/uL (1.2-4.9); Lymphocytes Percent Manual 4 % (20-40); Monocytes Absolute Manual 0.7 X10*3/uL (0.1-1.2); Monocytes Percent Manual 5 % (2-11); Neutrophils Absolute Manual 12.4 X10*3/uL (2.0-8.3); Neutrophils Percent Manual 88 % (45-73); RBC Morphology NOTED
[2022-08-20 09:04] LABS: Basophilic Stippling 1+ (0-2) /OIF; Hypochromasia 1+ (5-14) /OIF; Platelet Estimate NORMAL (NORMAL); Platelet Morphology Comment NORMAL
[2022-08-20] MEDS: Heparin Sodium,Porcine 5,000 UNIT/ML VIAL 5000 UNIT SUBCUT ×2 (09:28→20:29)
[2022-08-20] MEDS: 0.9 % Sodium Chloride Flush 3 ML SYRINGE IVFLUSH ×2 (09:28→15:39)
--- NOTE | 2022-08-20 10:46 | MHC.CM.PN ---
EMR REVIEWED, PER HOSPITALIST PT WILL REMAIN INPT OVER W/E, NO PLAN FOR D/C AT THIS TIME, ANTIC PT WILL D/C W/OUTPT HD ONCE MEDICALLY CLEARED, CM WILL CONT TO FOLLOW D/C NEEDS.
--- NOTE | 2022-08-20 13:58 | HO.PM.IMPN ---
Subjective Subjective Date of Service: 08/20/22 Interval History: Seen and evaluated feels better this morning, no more fever WBCs trending down no other overnight events Review of Systems Review of Systems: Yes all other systems are reviewed and are negative Physical Exam Vital Signs: Vital Signs: Last Vital Signs Temp 97.2 F 08/20/22 11:22 Pulse 80 08/20/22 11:22 Resp 20 08/20/22 11:22 BP 132/82 08/20/22 11:22 Pulse Ox 98 08/20/22 11:22 O2 Del Method Room Air 08/20/22 11:22 BMI result Body Mass Index 22.4 Const: Other: Constitutional : Awake, interactive, not in distress Neck : Normal inspection, Supple Cardiovascular : RRR, no JVP, no lower extremity edema Respiratory : good bilateral air entry, no crackles, wheezes or rhonchi Gastrointestinal: soft, lax, Normal bowel sounds, Non tender Skin : Warm, Dry, Permacath in place with no surrounding erythema , RUE less edema and mild tenderness Neurological : Alert & oriented x3, No focal deficit Objective Data Active Medications Acetaminophen (Acetaminophen 325 Mg Tablet) 650 mg PO Q6H PRN PRN Reason: Pain, Mild (Pain Scale 1-3) Last Admin: 08/18/22 15:49 Dose: 650 mg Documented By: RASHMI Albuterol Sulfate (Albuterol Sulfate 90 Mcg 8 Gm Inhaler) 2 puff INHALE Q6H PRN PRN Reason: shortness of breath or wheezing Clotrimazole (Clotrimazole 1 % Cream 15 Gm Tube) 1 appl TOPICAL BID [facility]; Protocol Last Admin: 08/19/22 20:13 Dose: 1 appl Documented By: JENNIFER Docusate Sodium (Docusate Sodium 100 Mg Capsule) 100 mg PO DAILY PRN PRN Reason: Constipation Doxycycline Monohydrate (Doxycycline Monohydrate 100 Mg Capsule) 100 mg PO Q12H [facility] Last Admin: 08/20/22 05:33 Dose: 100 mg Documented By: JENNIFER Fluticasone Propionate (Fluticasone Propionate 100 Mcg Blst.W.Dev) 2 puff INHALE RBID [facility] Last Admin: 08/20/22 08:01 Dose: 2 puff Documented By: SEFERINO Heparin Sodium (Porcine) (Heparin Sodium,Porcine 5,000 Unit/Ml Vial) 5,000 unit SUBCUT Q12H [facility] Last Admin: 08/20/22 09:28 Dose: 5,000 unit Documented By: CRISTAL Levofloxacin (Levaquin) 250 mg in 50 mls @ 50 mls/hr IV Q24H [facility] Daptomycin 519.2 mg/ Sodium (Chloride) 60.384 mls @ 100 mls/hr IV Q48H [facility] Last Infusion: 08/19/22 20:50 Dose: 0 mls/hr Documented By: JENNIFER Ondansetron HCl (Ondansetron Hcl 4 Mg/2 Ml Vial) 4 mg IVPUSH Q8H PRN PRN Reason: Nausea and Vomiting Last Admin: 08/17/22 17:30 Dose: 4 mg Documented By: KJ Pharmacy Consult (Consult Rx Perform Med Rec) 1 each MISCELLANE ONCE PRN PRN Reason: Consult order Prochlorperazine Edisylate (Prochlorperazine Edisylate 10 Mg/2 Ml Vial) 5 mg IVPUSH Q6H PRN PRN Reason: nasuea Last Admin: 08/17/22 09:24 Dose: 5 mg Documented By: KJ Sodium Chloride (0.9 % Sodium Chloride Flush 3 Ml Syringe) 3 ml IVFLUSH QSHIFT [facility] Last Admin: 08/20/22 09:28 Dose: 3 ml Documented By: CRISTAL Labs 08/20/22 07:27 08/20/22 07:27 Labs: Laboratory Results - last 24 hr 08/14/22 08/19/22 08/20/22 13:49 19:15 02:10 MCV MCH MCHC RDW Plt Count MPV Absolute Nucleated RBC Nucleated RBC % (auto) Neutrophils % (Manual) Band Neutrophils % Lymphocytes % (Manual) Monocytes % (Manual) Eosinophils % (Manual) Abs Neuts (Manual) Lymphocytes # (Manual) Monocytes # (Manual) Eosinophils # (Manual) Platelet Estimate Plt Morphology Comment RBC Morphology Hypochromasia Basophilic Stippling Anion Gap Estim Creat Clear Calc Estimated GFR Random Glucose Calcium Urine Color BROWN Yellow Urine Appearance Cloudy Cloudy Urine pH 8.0 7.5 Ur Specific [place] 1.020 1.010 Urine Protein 100 (2+) H 300 (3+) H Urine Glucose (UA) Negative Negative Urine Ketones Negative Negative Urine Blood Large (3+) H Large (3+) H Urine Nitrite Positive H Negative Ur Leukocyte Esterase Large (3+) H Large (3+) H Urine RBC >20 H >20 H Urine WBC >50 H >50 H Urine WBC Clumps Present Ur Squamous Epith Cells >20 6-10 Urine Bacteria 3+ 1+ Hyaline Casts 0-2 0-2 Urine Eosinophils % BRIELLE Screen NEGATIVE BRIELLE Titer TNP BRIELLE Titer 2 TNP BRIELLE Titer 3 TNP BRIELLE Pattern TNP BRIELLE Pattern 2 TNP BRIELLE Pattern 3 TNP 08/20/22 08/20/22 08/20/22 02:10 07:27 07:27 MCV 87.9 MCH 30.4 MCHC 34.5 RDW 12.1 Plt Count 356 MPV 11.2 Absolute Nucleated RBC 0.000 Nucleated RBC % (auto) 0.0 Neutrophils % (Manual) Band Neutrophils % Lymphocytes % (Manual) Monocytes % (Manual) Eosinophils % (Manual) Abs Neuts (Manual) Lymphocytes # (Manual) Monocytes # (Manual) Eosinophils # (Manual) Platelet Estimate Plt Morphology Comment RBC Morphology Hypochromasia Basophilic Stippling Anion Gap 13 Estim Creat Clear Calc 8.5 Estimated GFR 5 Random Glucose 87 Calcium 8.1 L Urine Color Urine Appearance Urine pH Ur Specific [place] Urine Protein Urine Glucose (UA) Urine Ketones Urine Blood Urine Nitrite Ur Leukocyte Esterase Urine RBC Urine WBC Urine WBC Clumps Ur Squamous Epith Cells Urine Bacteria Hyaline Casts Urine Eosinophils % 1.0 BRIELLE Screen BRIELLE Titer BRIELLE Titer 2 BRIELLE Titer 3 BRIELLE Pattern BRIELLE Pattern 2 BRIELLE Pattern 3 08/20/22 07:27 MCV 88.4 MCH 30.6 MCHC 34.6 RDW 12.2 Plt Count 351 MPV 11.1 Absolute Nucleated RBC 0.000 Nucleated RBC % (auto) 0.0 Neutrophils % (Manual) 88 H Band Neutrophils % 1 L Lymphocytes % (Manual) 4 L Monocytes % (Manual) 5 Eosinophils % (Manual) 2 Abs Neuts (Manual) 12.4 H Lymphocytes # (Manual) 0.6 L Monocytes # (Manual) 0.7 Eosinophils # (Manual) 0.3 Platelet Estimate NORMAL Plt Morphology Comment NORMAL RBC Morphology NOTED Hypochromasia 1+ (5-14) Basophilic Stippling 1+ (0-2) Anion Gap Estim Creat Clear Calc Estimated GFR Random Glucose Calcium Urine Color Urine Appearance Urine pH Ur Specific [place] Urine Protein Urine Glucose (UA) Urine Ketones Urine Blood Urine Nitrite Ur Leukocyte Esterase Urine RBC Urine WBC Urine WBC Clumps Ur Squamous Epith Cells Urine Bacteria Hyaline Casts Urine Eosinophils % BRIELLE Screen BRIELLE Titer BRIELLE Titer 2 BRIELLE Titer 3 BRIELLE Pattern BRIELLE Pattern 2 BRIELLE Pattern 3 Assessment and Plan (1) BARNEY (acute kidney injury): Status: Acute (2) Uremia: Status: Acute (3) Thrombophlebitis arm: Status: Acute (4) SIRS (systemic inflammatory response syndrome): Status: Acute Plan 27F PMH mild persistent asthma presented with malaise, nausea, found to have severe BARNEY with metabolic acidosis, hyperkalemia acute kidney injury complicated by acute metabolic acidosis, hyperkalemia, uremia hyperkalemia and acidosis resolved s/p permacath and HD initiated 08/16/22 MPO and PR3 are negative, normal C3,C4 up to this point rest of GN work up negative kidney biopsy showing evidence of lymphocytic interstitial inflammation DC IVF nephro following, HD 3 times weekly for now, working on OP setting RUE swelling with evidence of blocked permacath, US showed thrombophlebitis, to use ice and elevation hypercoagulable work up pending SIRS No clear source of of infection, could be UTI, line infx pending blood and urine culture continue broad spectrum Abx until cx finalized ID following hyponatremia, acute related to renal failure correction with HD mild persistent asthma stable continue inhalers dvt prophylaxis - hep sq full code reason for continued hospitalization: close monitoring of renal function and need of dialysis pending final blood culture Time Spent With Patient Time: Total time managing care of this patient today ____ minutes. Quality Stroke Does the patient have a stroke diagnosis?: No VTE Prior VTE?: No VTE Risk Level:: Medical - moderate - high VTE Device Contraindication: Treatment Not Indicated VTE Drug Contraindication: Treatment Not Indicated
[2022-08-20] MEDS: ondansetron HCL 4 MG/2 ML VIAL IVPUSH (15:36)
--- NOTE | 2022-08-20 16:29 | P.CNID_ITS ---
History of Present Illness Data of Consult Service Date: 08/20/22 Requesting physician: Aniyah Devries Primary Care Provider: Shannan Bradford MD HPI Reason for consult: renal insufficiency?infectious cause She presents with nausea and vomiting with weakness. She had been seen in med office with complaints 08/06-08/11 vomiting. She had no diarrhea. She had workup for GI and and [employer] causes and none found. She had renal biopsy show ATN ,interstitial nephritis. She takes no medication. She has no toxic exposures. Review of Systems Review of Systems: Yes all other systems are reviewed and are negative [facility] Past Medical History Medical History Asthma Family History Family History Paternal Aunt SLE (systemic lupus erythematosus) Family history: reviewed and not pertinent Surgical History Surgical History [place] teeth removed Social History Social History Household Members: Family Household Members Other:: Lives with a partner Housing: House Do you presently have visiting nurse or other home services: No Patient Tobacco Use Status: Never used Tobacco e-Cigarette/Vaping Use: Never Used Second Hand Smoke Exposure: No Substance Use Type: Marijuana service: No Current occupational status: employed Cognitive needs: No Hearing needs: No Vision needs: Yes Travel History Ebola Risk: Travel/Contact With Anyone From Affected Area/s: No Meds Allergies Allergy/AdvReac Type Severity Reaction Status Date / Time penicillin V Allergy Unknown rash Verified 08/18/22 10:40 Active Medications: Current Medications Acetaminophen (Acetaminophen 325 Mg Tablet) 650 mg PO Q6H PRN PRN Reason: Pain, Mild (Pain Scale 1-3) Last Admin: 08/18/22 15:49 Dose: 650 mg Albuterol Sulfate (Albuterol Sulfate 90 Mcg 8 Gm Inhaler) 2 puff INHALE Q6H PRN PRN Reason: shortness of breath or wheezing Clotrimazole (Clotrimazole 1 % Cream 15 Gm Tube) 1 appl TOPICAL BID JENNIFER; Protocol Last Admin: 08/19/22 20:13 Dose: 1 appl Docusate Sodium (Docusate Sodium 100 Mg Capsule) 100 mg PO DAILY PRN PRN Reason: Constipation Doxycycline Monohydrate (Doxycycline Monohydrate 100 Mg Capsule) 100 mg PO Q12H [facility] Last Admin: 08/20/22 05:33 Dose: 100 mg Fluticasone Propionate (Fluticasone Propionate 100 Mcg Blst.W.Dev) 2 puff INHALE RBID [facility] Last Admin: 08/20/22 08:01 Dose: 2 puff Heparin Sodium (Porcine) (Heparin Sodium,Porcine 5,000 Unit/Ml Vial) 5,000 unit SUBCUT Q12H [facility] Last Admin: 08/20/22 09:28 Dose: 5,000 unit Levofloxacin (Levaquin) 250 mg in 50 mls @ 50 mls/hr IV Q24H [facility] Daptomycin 519.2 mg/ Sodium (Chloride) 60.384 mls @ 100 mls/hr IV Q48H [facility] Last Infusion: 08/19/22 20:50 Dose: Infused Ondansetron HCl (Ondansetron Hcl 4 Mg/2 Ml Vial) 4 mg IVPUSH Q8H PRN PRN Reason: Nausea and Vomiting Last Admin: 08/20/22 15:36 Dose: 4 mg Pharmacy Consult (Consult Rx Perform Med Rec) 1 each MISCELLANE ONCE PRN PRN Reason: Consult order Prochlorperazine Edisylate (Prochlorperazine Edisylate 10 Mg/2 Ml Vial) 5 mg IVPUSH Q6H PRN PRN Reason: nasuea Last Admin: 08/17/22 09:24 Dose: 5 mg Sodium Chloride (0.9 % Sodium Chloride Flush 3 Ml Syringe) 3 ml IVFLUSH QSHIFT [facility] Last Admin: 08/20/22 15:39 Dose: 3 ml Physical Exam Vital Signs: Vital Signs: Last Vital Signs Temp 97.2 F 08/20/22 11:22 Pulse 80 08/20/22 11:22 Resp 20 08/20/22 11:22 BP 132/82 08/20/22 11:22 Pulse Ox 98 08/20/22 11:22 O2 Del Method Room Air 08/20/22 11:22 BMI result Body Mass Index 22.4 Const: General: cooperative HEENT: Head: Yes normal to inspection Face and sinus: Yes normal facial exam Mouth: Normal oral and palatal mucosa present Teeth and gingiva: dentition normal Eyes: General: appearance normal, both eyes and all related structures Pupils: Equal, round and reactive pupils present Resp: Effort & Inspection: normal respiratory effort Cardio: Rate: regular rate Rhythm: regular rhythm GI: Palpation (GI): Soft to palpation and nontender : General: Yes no CVA tenderness Back/Spine/Pelvis: Back: no CVA tenderness Skin: General skin exam: no rashes or lesions noted Neuro: General: moves all extremities Cranial nerves: Yes Equal, round and reactive pupils present Extrem: General: Yes normal to inspection Psych: Appearance: grossly normal Results Labs 08/20/22 07:27 08/20/22 07:27 Labs: Short CBC 08/20/22 08/20/22 Range/Units 07:27 07:27 WBC 13.5 H 13.9 H (4.8-10.8) X10*3/uL Hgb 7.8 L 7.9 L (12.0-16.0) g/dl Hct 22.6 L 22.8 L (37.0-47.0) % Plt Count 356 351 (160-400) X10*3/uL BMP 08/20/22 07:27 Sodium 132 L Potassium 4.0 Chloride 98 Carbon Dioxide 25 BUN 37 H Creatinine 9.56 H* Calcium 8.1 L Urine 08/19/22 08/20/22 Range/Units 19:15 02:10 Urine Color BROWN Yellow Urine Appearance Cloudy Cloudy Urine pH 8.0 7.5 (5.0-9.0) Ur Specific [place] 1.020 1.010 (1.005-1.025) Urine Protein 100 (2+) H 300 (3+) H (Neg-Trace) mg/dL Urine Glucose (UA) Negative Negative (Negative) mg/dL Microbiology Microbiology Results: Microbiology 08/14/22 Unknown Urine clean catch - Urine goss top Urine Culture - Final Lactobacillus species Assessment and Plan (1) SIRS (systemic inflammatory response syndrome): Status: Acute There is no viral ,bacterial or rickettsial etiology identified at this time Leptospirosis and anaplasmosis can cause symptoms (2) BARNEY (acute kidney injury): Status: Acute Plan Doxycycline for 14 days Stop all other antibiotics if blood culture negative tomorrow. Check [place] Spotted fever babesia and anaplasmosis serologies Follow up with Renal,rule out collagen vascular disease,other Time Spent With Patient Time: Total time managing care of this patient today ____ minutes.
[2022-08-20] MEDS: Simethicone 80 MG TAB.CHEW PO ×2 (17:15→23:23)
[2022-08-20] MEDS: levoFLOXacin/D5W 250 MG/50 ML PIGGYBACK 50 MG IV (17:52)
[2022-08-20] MEDS: Albuterol Sulfate 90 MCG 8 GM INHALER 2 PUFF INHALE (19:59)
--- NOTE | 2022-08-20 21:54 | P.PNNP_ITS ---
Subjective Subjective Date of Service: 08/20/22 Interval history: Seen and evaluated feels better this morning, no more fever WBCs trending down no other overnight events Physical Exam Vital Signs: Vital Signs: Last Vital Signs Temp 98.9 F 08/20/22 20:00 Pulse 102 H 08/20/22 20:02 Resp 16 08/20/22 20:02 BP 158/93 H 08/20/22 20:00 Pulse Ox 100 08/20/22 20:00 O2 Del Method Room Air 08/20/22 20:00 BMI result Body Mass Index 22.4 Const: General: cooperative HEENT: Head: Yes normal to inspection Face and sinus: Yes normal facial exam Mouth: Normal oral and palatal mucosa present Teeth and gingiva: dentition normal Eyes: General: appearance normal, both eyes and all related structures Pupils: Equal, round and reactive pupils present Resp: Effort & Inspection: normal respiratory effort Cardio: Rate: regular rate Rhythm: regular rhythm GI: Palpation (GI): Soft to palpation and nontender : General: Yes no CVA tenderness Back/Spine/Pelvis: Back: no CVA tenderness Skin: General skin exam: no rashes or lesions noted Neuro: General: moves all extremities Cranial nerves: Yes Equal, round and reactive pupils present Extrem: General: Yes normal to inspection Psych: Appearance: grossly normal Objective Data Labs 08/20/22 07:27 08/20/22 07:27 Labs: Laboratory Results - last 24 hr 08/14/22 08/20/22 08/20/22 13:49 02:10 02:10 WBC RBC Hgb Hct MCV MCH MCHC RDW Plt Count MPV Absolute Nucleated RBC Nucleated RBC % (auto) Neutrophils % (Manual) Band Neutrophils % Lymphocytes % (Manual) Monocytes % (Manual) Eosinophils % (Manual) Abs Neuts (Manual) Lymphocytes # (Manual) Monocytes # (Manual) Eosinophils # (Manual) Platelet Estimate Plt Morphology Comment RBC Morphology Hypochromasia Basophilic Stippling Sodium Potassium Chloride Carbon Dioxide Anion Gap BUN Creatinine Estim Creat Clear Calc Estimated GFR Random Glucose Calcium Urine Color Yellow Urine Appearance Cloudy Urine pH 7.5 Ur Specific [place] 1.010 Urine Protein 300 (3+) H Urine Glucose (UA) Negative Urine Ketones Negative Urine Blood Large (3+) H Urine Nitrite Negative Ur Leukocyte Esterase Large (3+) H Urine RBC >20 H Urine WBC >50 H Urine WBC Clumps Present Ur Squamous Epith Cells 6-10 Urine Bacteria 1+ Hyaline Casts 0-2 Urine Eosinophils % 1.0 BRIELLE Screen NEGATIVE BRIELLE Titer TNP BRIELLE Titer 2 TNP BRIELLE Titer 3 TNP BRIELLE Pattern TNP BRIELLE Pattern 2 TNP BRIELLE Pattern 3 TNP 08/20/22 08/20/22 08/20/22 07:27 07:27 07:27 WBC 13.5 H 13.9 H RBC 2.57 L 2.58 L Hgb 7.8 L 7.9 L Hct 22.6 L 22.8 L MCV 87.9 88.4 MCH 30.4 30.6 MCHC 34.5 34.6 RDW 12.1 12.2 Plt Count 356 351 MPV 11.2 11.1 Absolute Nucleated RBC 0.000 0.000 Nucleated RBC % (auto) 0.0 0.0 Neutrophils % (Manual) 88 H Band Neutrophils % 1 L Lymphocytes % (Manual) 4 L Monocytes % (Manual) 5 Eosinophils % (Manual) 2 Abs Neuts (Manual) 12.4 H Lymphocytes # (Manual) 0.6 L Monocytes # (Manual) 0.7 Eosinophils # (Manual) 0.3 Platelet Estimate NORMAL Plt Morphology Comment NORMAL RBC Morphology NOTED Hypochromasia 1+ (5-14) Basophilic Stippling 1+ (0-2) Sodium 132 L Potassium 4.0 Chloride 98 Carbon Dioxide 25 Anion Gap 13 BUN 37 H Creatinine 9.56 H* Estim Creat Clear Calc 8.5 Estimated GFR 5 Random Glucose 87 Calcium 8.1 L Urine Color Urine Appearance Urine pH Ur Specific [place] Urine Protein Urine Glucose (UA) Urine Ketones Urine Blood Urine Nitrite Ur Leukocyte Esterase Urine RBC Urine WBC Urine WBC Clumps Ur Squamous Epith Cells Urine Bacteria Hyaline Casts Urine Eosinophils % BRIELLE Screen BRIELLE Titer BRIELLE Titer 2 BRIELLE Titer 3 BRIELLE Pattern BRIELLE Pattern 2 BRIELLE Pattern 3 Microbiology Microbiology Results: Microbiology 08/19/22 16:53 Blood - Venous Blood Culture - Preliminary No growth after 24 hours. 08/19/22 16:53 Blood - Central Line Blood Culture - Preliminary No growth after 24 hours. 08/14/22 Unknown Urine clean catch - Urine goss top Urine Culture - Final Lactobacillus species Procedures Date of Service Date of Service: 08/20/22 Assessment & Plan Assessment and plan (1) BARNEY (acute kidney injury): Status: Acute (2) Hyperkalemia: Status: Acute (3) Acidosis: Status: Acute (4) Hyponatremia: Status: Acute Plan Young woman with acute renal failure with severe hyperkalemia and metabolic acid osis with hyponatremia. . Acute tubular necrosis fBased on Bx No GN / Cresents Urinalysis shows dipstick positive protein and blood along with bacteria and no casts with reported.. No evidence of obstruction based on the recent imaging. Unlikely to be allergic interstitial nephritis. Severe metabolic acidosis and hyperkalemia due to acute kidney injury. and hyponatremia due to decreased free water clearance: All improving. Anemia without thrombocytopenia . Hypocalcemia urine protein creatinine ratio.= 0.84 So far MPO and PR3 are negative Complement C3-C4 are within normal range. - other serological tests including BRIELLE, are pending Corrected hyperkalemia medically. DC IV hydration s/p Kidney biopsy in 08/18/22 ATN / No Acute GN S/p PC Infection w/u and antibiotics as per medicine F/u Anti-cardiolipin and Lupus anticoagulant F/u serology HD in Am d/w medical team D/w family in detail Out pt Hd arrangement in progress Time Spent With Patient Time: Total time managing care of this patient today ____ minutes. Progress Note: Quality Stroke Does the patient have a stroke diagnosis?: No
[2022-08-21] VITALS (7 sets, daily range): BP systolic 136–156; BP diastolic 82–97; PULSE 78–91; RESP 16–20; TEMP 36.6–37.7; O2SAT 99–100
[2022-08-21 06:30] LABS: Hemoglobin 7.1 g/dl (12.0-16.0); Mean Corpuscular HGB Conc 34.1 g/dl (31.0-35.0); Mean Corpuscular Volume 87.8 fL (80.0-98.0); Mean Platelet Volume 10.5 fL (9.4-12.3); Platelet Count 322 X10*3/uL (160-400); Red Blood Count 2.37 X10*6/uL (4.20-5.50); Red Cell Distribution Width 12.1 % (11.0-16.0); White Blood Count 13.2 X10*3/uL (4.8-10.8)
[2022-08-21 06:36] LABS: Hematocrit 20.8 % (37.0-47.0)
[2022-08-21 06:51] LABS: Anion Gap 12 (12-20); Blood Urea Nitrogen 29 mg/dL (9-16); Carbon Dioxide 28 mmol/L (22-29); Chloride 96 mmol/L (96-108); Creatinine Clr Calc Pharmacy 11.1; Estimated Glomerular Filt Rate 7; Glucose Random 90 mg/dL (60-115); Potassium 3.5 mmol/L (3.3-5.1); Sodium 132 mmol/L (135-145)
[2022-08-21 08:44] LABS: Alanine Aminotransferase 12 U/L (0-31); Albumin Level 2.6 g/dL (3.5-5.0); Alkaline Phosphatase 54 U/L (39-117); Aspartate Amino Transferase 10 U/L (5-31); Bilirubin Direct 0.3 mg/dL (0.0-0.5); Bilirubin Total 0.7 mg/dL (0.0-1.0); Iron 20 mcg/dL (30-160); Percent Iron Saturation 11 % (15-50); Total Iron Binding Capacity 180 mcg/dL (228-428); Total Protein 4.8 g/dL (6.5-8.0); Unsaturated Iron Binding 160 ug/dL
[2022-08-21] MEDS: Doxycycline Monohydrate 100 MG CAPSULE PO ×2 (10:10→17:48)
[2022-08-21] MEDS: Simethicone 80 MG TAB.CHEW PO ×2 (10:10→18:21)
--- NOTE | 2022-08-21 11:02 | P.PNIM_ITS ---
Subjective Subjective Date of Service: 08/21/22 Interval History: Seen and evaluated while in dialysis Cr trending down while off HD feels better this morning, no more fever WBCs trending down no other overnight events Review of Systems Review of Systems: Yes all other systems are reviewed and are negative Physical Exam Vital Signs: Vital Signs: Last Vital Signs Temp 98.9 F 08/21/22 04:00 Pulse 86 08/21/22 04:00 Resp 18 08/21/22 04:00 BP 151/95 H 08/21/22 04:00 Pulse Ox 100 08/21/22 04:00 O2 Del Method Room Air 08/21/22 04:00 BMI result Body Mass Index 22.4 Const: Other: Constitutional : Awake, interactive, not in distress Neck : Normal inspection, Supple Cardiovascular : RRR, no JVP, no lower extremity edema Respiratory : good bilateral air entry, no crackles, wheezes or rhonchi Gastrointestinal: soft, lax, Normal bowel sounds, Non tender Skin : Warm, Dry, Permacath in place with no surrounding erythema , RUE less edema and mild tenderness Neurological : Alert & oriented x3, No focal deficit Objective Data Active Medications Acetaminophen (Acetaminophen 325 Mg Tablet) 650 mg PO Q6H PRN PRN Reason: Pain, Mild (Pain Scale 1-3) Last Admin: 08/18/22 15:49 Dose: 650 mg Documented By: RASHMI Albuterol Sulfate (Albuterol Sulfate 90 Mcg 8 Gm Inhaler) 2 puff INHALE Q6H PRN PRN Reason: shortness of breath or wheezing Last Admin: 08/20/22 19:59 Dose: 2 puff Documented By: EJ Clotrimazole (Clotrimazole 1 % Cream 15 Gm Tube) 1 appl TOPICAL BID REPLACED BY [facility]; Protocol Last Admin: 08/21/22 10:12 Dose: Not Given Documented By: VIKRAM Non-Admin Reason: Patient Refused Docusate Sodium (Docusate Sodium 100 Mg Capsule) 100 mg PO DAILY PRN PRN Reason: Constipation Doxycycline Monohydrate (Doxycycline Monohydrate 100 Mg Capsule) 100 mg PO Q12H REPLACED BY [facility] Last Admin: 08/21/22 10:10 Dose: 100 mg Documented By: VIKRAM Fluticasone Propionate (Fluticasone Propionate 100 Mcg Blst.W.Dev) 2 puff INHALE RBID REPLACED BY [facility] Last Admin: 08/21/22 08:16 Dose: Not Given Documented By: CHONG Non-Admin Reason: pt not in room Heparin Sodium (Porcine) (Heparin Sodium,Porcine 5,000 Unit/Ml Vial) 5,000 unit SUBCUT Q12H REPLACED BY [facility] Last Admin: 08/21/22 10:08 Dose: Not Given Documented By: VIKRAM Non-Admin Reason: Off unit: Dialysis Levofloxacin (Levaquin) 250 mg in 50 mls @ 50 mls/hr IV Q24H REPLACED BY [facility] Last Infusion: 08/20/22 20:38 Dose: 0 mls/hr Documented By: RODOLFO Daptomycin 519.2 mg/ Sodium (Chloride) 60.384 mls @ 100 mls/hr IV Q48H REPLACED BY [facility] Last Infusion: 08/19/22 20:50 Dose: 0 mls/hr Documented By: JENNIFER Ondansetron HCl (Ondansetron Hcl 4 Mg/2 Ml Vial) 4 mg IVPUSH Q8H PRN PRN Reason: Nausea and Vomiting Last Admin: 08/20/22 15:36 Dose: 4 mg Documented By: PAULETTE Pharmacy Consult (Consult Rx Perform Med Rec) 1 each MISCELLANE ONCE PRN PRN Reason: Consult order Prochlorperazine Edisylate (Prochlorperazine Edisylate 10 Mg/2 Ml Vial) 5 mg IVPUSH Q6H PRN PRN Reason: nasuea Last Admin: 08/17/22 09:24 Dose: 5 mg Documented By: KJ Simethicone (Simethicone 80 Mg Tab.Chew) 80 mg PO QIDWMHS PRN PRN Reason: Gas Last Admin: 08/21/22 10:10 Dose: 80 mg Documented By: VIKRAM Sodium Chloride (0.9 % Sodium Chloride Flush 3 Ml Syringe) 3 ml IVFLUSH QSHIFT REPLACED BY [facility] Last Admin: 08/21/22 10:08 Dose: Not Given Documented By: VIKRAM Non-Admin Reason: Off unit: Dialysis Labs 08/21/22 06:19 08/21/22 06:19 Labs: Laboratory Results - last 24 hr 05/06/23 05/06/23 06:19 06:19 MCV 87.8 MCH 30.0 MCHC 34.1 RDW 12.1 Plt Count 322 MPV 10.5 Absolute Nucleated RBC 0.000 Nucleated RBC % (auto) 0.0 Anion Gap 12 Estim Creat Clear Calc 11.1 Estimated GFR 7 Random Glucose 90 Calcium 8.0 L Iron 20 L TIBC 180 L % Saturation 11 L Unsat Iron Binding 160 Total Bilirubin 0.7 Direct Bilirubin 0.3 AST 10 ALT 12 Alkaline Phosphatase 54 Total Protein 4.8 L Albumin 2.6 L Microbiology Microbiology Results: Microbiology 08/19/22 16:53 Blood Culture - Preliminary Blood - Venous No growth after 24 hours. 08/19/22 16:53 Blood Culture - Preliminary Blood - Central Line No growth after 24 hours. Assessment and Plan (1) SIRS (systemic inflammatory response syndrome): Status: Acute (2) Thrombophlebitis arm: Status: Acute (3) BARNEY (acute kidney injury): Status: Acute Plan 27F PMH mild persistent asthma presented with malaise, nausea, found to have severe BARNEY with metabolic acidosis, hyperkalemia acute kidney injury complicated by acute metabolic acidosis, hyperkalemia, uremia hyperkalemia and acidosis resolved Cr trending down for first time off HD s/p permacath and HD initiated 08/16/22 MPO and PR3 are negative, normal C3,C4 kidney biopsy showing evidence of ANT, no GN DC IVF nephro following, HD 3 times weekly for now, working on OP setting RUE swelling 2/2 thrombophlebitis Improving US showed thrombophlebitis, to use ice and elevation hypercoagulable work up pending SIRS No clear source of of infection, could be UTI, line infx, thrombophlebitis pending blood and urine culture continue broad spectrum Abx until cx finalized ID following, add Doxycycline for possible tick-borne disease hyponatremia, acute related to renal failure correction with HD mild persistent asthma stable continue inhalers dvt prophylaxis - hep sq full code reason for continued hospitalization: close monitoring of renal function and need of dialysis pending final blood culture Time Spent With Patient Time: Total time managing care of this patient today ____ minutes. Quality Stroke Does the patient have a stroke diagnosis?: No VTE Prior VTE?: No VTE Risk Level:: Medical - moderate - high VTE Device Contraindication: Treatment Not Indicated VTE Drug Contraindication: Treatment Not Indicated
[2022-08-21] MEDS: Iron Sucrose Complex 200 MG in 0.9 % Sodium Chloride 100 ML 440 MG IV (12:57)
--- NOTE | 2022-08-21 15:14 | PM.PNNEP ---
Subjective Subjective Date of Service: 08/21/22 Interval history: On [facility] dialysis Cr trending down while off HD feels better this morning, no more fever WBCs trending down no other overnight events Physical Exam Vital Signs: Vital Signs: Last Vital Signs Temp 97.9 F 08/21/22 12:00 Pulse 88 08/21/22 12:00 Resp 18 08/21/22 12:00 BP 151/97 H 08/21/22 12:00 Pulse Ox 100 08/21/22 12:00 O2 Del Method Room Air 08/21/22 12:00 BMI result Body Mass Index 22.4 Const: Other: Constitutional : Awake, interactive, not in distress Neck : Normal inspection, Supple Cardiovascular : RRR, no JVP, no lower extremity edema Respiratory : good bilateral air entry, no crackles, wheezes or rhonchi Gastrointestinal: soft, lax, Normal bowel sounds, Non tender Skin : Warm, Dry, Permacath in place with no surrounding erythema , RUE less edema and mild tenderness Neurological : Alert & oriented x3, No focal deficit Objective Data Labs 08/21/22 06:19 08/21/22 06:19 Labs: Laboratory Results - last 24 hr 08/21/22 08/21/22 06:19 06:19 WBC 13.2 H RBC 2.37 L Hgb 7.1 L Hct 20.8 L* MCV 87.8 MCH 30.0 MCHC 34.1 RDW 12.1 Plt Count 322 MPV 10.5 Absolute Nucleated RBC 0.000 Nucleated RBC % (auto) 0.0 Sodium 132 L Potassium 3.5 Chloride 96 Carbon Dioxide 28 Anion Gap 12 BUN 29 H Creatinine 7.27 H* Estim Creat Clear Calc 11.1 Estimated GFR 7 Random Glucose 90 Calcium 8.0 L Iron 20 L TIBC 180 L % Saturation 11 L Unsat Iron Binding 160 Total Bilirubin 0.7 Direct Bilirubin 0.3 AST 10 ALT 12 Alkaline Phosphatase 54 Total Protein 4.8 L Albumin 2.6 L Microbiology Microbiology Results: Microbiology 08/20/22 02:10 Urine clean catch - Clean Catch Midstream Urine Culture - Final 08/19/22 16:53 Blood - Venous Blood Culture - Preliminary No growth after 24 hours. 08/19/22 16:53 Blood - Central Line Blood Culture - Preliminary No growth after 24 hours. 08/14/22 Unknown Urine clean catch - Urine goss top Urine Culture - Final Lactobacillus species Procedures Date of Service Date of Service: 08/21/22 Assessment & Plan Assessment and plan (1) BARNEY (acute kidney injury): Status: Acute (2) Hyperkalemia: Status: Acute (3) Acidosis: Status: Acute (4) Hyponatremia: Status: Acute Plan Young woman with acute renal failure with severe hyperkalemia and metabolic acidosis with hyponatremia. . Acute tubular necrosis fBased on Bx No GN / Cresents Urinalysis shows dipstick positive protein and blood along with bacteria and no casts with reported.. No evidence of obstruction based on the recent imaging. Unlikely to be allergic interstitial nephritis. Severe metabolic acidosis and hyperkalemia due to acute kidney injury. and hyponatremia due to decreased free water clearance: All improving. Anemia without thrombocytopenia . Hypocalcemia urine protein creatinine ratio.= 0.84 So far MPO and PR3 are negative Complement C3-C4 are within normal range. - other serological tests including BRIELLE, are pending Corrected hyperkalemia medically. DC IV hydration s/p Kidney biopsy in 08/18/22 ATN / Interstitial Nephritis / No Acute GN S/p PC Infection w/u and antibiotics as per medicine F/u Anti-cardiolipin and Lupus anticoagulant F/u serology Contineu Hdto Next HD on Tuesday Daily Labs IV Iron as ordered d/w medical team Out pt Hd arrangement in progress Time Spent With Patient Time: Total time managing care of this patient today ____ minutes. Progress Note: Quality Stroke Does the patient have a stroke diagnosis?: No
[2022-08-21 15:26] LABS: Hematocrit 22.5 % (37.0-47.0); Hemoglobin 7.8 g/dl (12.0-16.0); Mean Corpuscular HGB Conc 34.7 g/dl (31.0-35.0); Mean Corpuscular Hemoglobin 30.4 pg (27.0-33.0); Mean Corpuscular Volume 87.5 fL (80.0-98.0); Mean Platelet Volume 10.8 fL (9.4-12.3); Platelet Count 397 X10*3/uL (160-400); Red Blood Count 2.57 X10*6/uL (4.20-5.50)
[2022-08-21] MEDS: ondansetron HCL 4 MG/2 ML VIAL IVPUSH (16:44)
[2022-08-21] MEDS: levoFLOXacin/D5W 250 MG/50 ML PIGGYBACK 50 MG IV (16:44)
[2022-08-21] MEDS: 0.9 % Sodium Chloride Flush 3 ML SYRINGE IVFLUSH (16:45)
[2022-08-21] MEDS: Fluticasone Propionate 100 MCG BLST.W.DEV 2 PUFF INHALE (20:26)
[2022-08-22] VITALS (7 sets, daily range): BP systolic 136–148; BP diastolic 84–96; PULSE 76–98; RESP 18–20; TEMP 36.8–37.7; O2SAT 97–100
[2022-08-22] MEDS: Doxycycline Monohydrate 100 MG CAPSULE PO ×2 (06:09→18:03)
[2022-08-22 06:54] LABS: Hemoglobin 7.1 g/dl (12.0-16.0); Mean Corpuscular HGB Conc 33.8 g/dl (31.0-35.0); Mean Corpuscular Hemoglobin 30.2 pg (27.0-33.0); Mean Corpuscular Volume 89.4 fL (80.0-98.0); Platelet Count 382 X10*3/uL (160-400); Red Blood Count 2.35 X10*6/uL (4.20-5.50); Red Cell Distribution Width 12.1 % (11.0-16.0)
[2022-08-22] MEDS: Prochlorperazine Edisylate 10 MG/2 ML VIAL 5 MG IVPUSH (06:57)
[2022-08-22 07:01] LABS: Anion Gap 14 (12-20); Blood Urea Nitrogen 27 mg/dL (9-16); Calcium 8.3 mg/dL (8.4-10.2); Carbon Dioxide 26 mmol/L (22-29); Chloride 96 mmol/L (96-108); Creatinine Clr Calc Pharmacy 10.5; Estimated Glomerular Filt Rate 6; Glucose Random 81 mg/dL (60-115); Potassium 4.4 mmol/L (3.3-5.1); Sodium 132 mmol/L (135-145)
[2022-08-22 07:20] LABS: White Blood Count 11.6 X10*3/uL (4.8-10.8)
[2022-08-22] MEDS: Fluticasone Propionate 100 MCG BLST.W.DEV 2 PUFF INHALE ×2 (07:51→19:04)
[2022-08-22] MEDS: Iron Sucrose Complex 200 MG in 0.9 % Sodium Chloride 100 ML 440 MG IV (08:49)
[2022-08-22] MEDS: 0.9 % Sodium Chloride Flush 3 ML SYRINGE IVFLUSH ×2 (08:50→20:15)
--- NOTE | 2022-08-22 10:15 | P.PNIM_ITS ---
Subjective Subjective Date of Service: 08/22/22 Interval History: Seen and evaluated while in dialysis Hb dropped to 7.1, had menses feels better this morning, no more fever no other overnight events Review of Systems Review of Systems: Yes all other systems are reviewed and are negative Physical Exam Vital Signs: Vital Signs: Last Vital Signs Temp 98.4 F 08/22/22 07:44 Pulse 83 08/22/22 07:44 Resp 18 08/22/22 07:53 BP 143/94 H 08/22/22 07:44 Pulse Ox 97 08/22/22 07:44 O2 Del Method Room Air 08/22/22 07:44 BMI result Body Mass Index 22.4 Const: Other: Constitutional : Awake, interactive, not in distress Neck : Normal inspection, Supple Cardiovascular : RRR, no JVP, no lower extremity edema Respiratory : good bilateral air entry, no crackles, wheezes or rhonchi Gastrointestinal: soft, lax, Normal bowel sounds, Non tender Skin : Warm, Dry, Permacath in place with no surrounding erythema , RUE less edema and no tenderness Neurological : Alert & oriented x3, No focal deficit Objective Data Active Medications Acetaminophen (Acetaminophen 325 Mg Tablet) 650 mg PO Q6H PRN PRN Reason: Pain, Mild (Pain Scale 1-3) Last Admin: 08/18/22 15:49 Dose: 650 mg Documented By: RASHMI Albuterol Sulfate (Albuterol Sulfate 90 Mcg 8 Gm Inhaler) 2 puff INHALE Q6H PRN PRN Reason: shortness of breath or wheezing Last Admin: 08/20/22 19:59 Dose: 2 puff Documented By: EJ Clotrimazole (Clotrimazole 1 % Cream 15 Gm Tube) 1 appl TOPICAL BID [facility]; Protocol Last Admin: 08/22/22 08:50 Dose: Not Given Documented By: VIKRAM Non-Admin Reason: Patient Refused Docusate Sodium (Docusate Sodium 100 Mg Capsule) 100 mg PO DAILY PRN PRN Reason: Constipation Doxycycline Monohydrate (Doxycycline Monohydrate 100 Mg Capsule) 100 mg PO Q12H [facility] Last Admin: 08/22/22 06:09 Dose: 100 mg Documented By: RODOLFO Fluticasone Propionate (Fluticasone Propionate 100 Mcg Blst.W.Dev) 2 puff INHALE RBID [facility] Last Admin: 08/22/22 07:51 Dose: 2 puff Documented By: CHONG Heparin Sodium (Porcine) (Heparin Sodium,Porcine 5,000 Unit/Ml Vial) 5,000 unit SUBCUT Q12H [facility] Last Admin: 08/21/22 10:08 Dose: Not Given Documented By: VIKRAM Non-Admin Reason: Off unit: Dialysis Iron Sucrose 200 mg/ Sodium (Chloride) 110 mls @ 440 mls/hr IV DAILY [facility] Stop: 08/23/22 09:14 Last Infusion: 08/22/22 09:14 Dose: 0 mls/hr Documented By: VIKRAM Ondansetron HCl (Ondansetron Hcl 4 Mg/2 Ml Vial) 4 mg IVPUSH Q8H PRN PRN Reason: Nausea and Vomiting Last Admin: 08/21/22 16:44 Dose: 4 mg Documented By: VIKRAM Pharmacy Consult (Consult Rx Perform Med Rec) 1 each MISCELLANE ONCE PRN PRN Reason: Consult order Prochlorperazine Edisylate (Prochlorperazine Edisylate 10 Mg/2 Ml Vial) 5 mg IVPUSH Q6H PRN PRN Reason: nasuea Last Admin: 08/22/22 06:57 Dose: 5 mg Documented By: RODOLFO Simethicone (Simethicone 80 Mg Tab.Chew) 80 mg PO QIDWMHS PRN PRN Reason: Gas Last Admin: 08/21/22 18:21 Dose: 80 mg Documented By: VIKRAM Sodium Chloride (0.9 % Sodium Chloride Flush 3 Ml Syringe) 3 ml IVFLUSH QSHIFT [facility] Last Admin: 08/22/22 08:50 Dose: 3 ml Documented By: VIKRAM Labs 08/22/22 05:54 08/22/22 05:54 Labs: Laboratory Results - last 24 hr 08/21/22 08/22/22 08/22/22 14:58 05:54 05:54 MCV 87.5 89.4 MCH 30.4 30.2 MCHC 34.7 33.8 RDW 12.0 12.1 Plt Count 397 382 MPV 10.8 11.0 Absolute Nucleated RBC 0.000 0.000 Nucleated RBC % (auto) 0.0 0.0 Anion Gap 14 Estim Creat Clear Calc 10.5 Estimated GFR 6 Random Glucose 81 Calcium 8.3 L Microbiology Microbiology Results: Microbiology 08/19/22 16:53 Blood Culture - Preliminary Blood - Venous No growth after 48 hours. 08/19/22 16:53 Blood Culture - Preliminary Blood - Central Line No growth after 48 hours. 08/20/22 02:10 Urine Culture - Final Urine clean catch - Clean Catch Midstream Assessment and Plan (1) SIRS (systemic inflammatory response syndrome): Status: Acute (2) BARNEY (acute kidney injury): Status: Acute (3) Need for acute hemodialysis: Status: Acute (4) Thrombophlebitis arm: Status: Acute Plan 27F PMH mild persistent asthma presented with malaise, nausea, found to have severe BARNEY with metabolic acidosis, hyperkalemia acute kidney injury complicated by acute metabolic acidosis, hyperkalemia, uremia hyperkalemia and acidosis resolved Cr at 7.7, making good amount of urine s/p permacath and HD initiated 08/16/22 MPO and PR3 are negative, normal C3,C4 kidney biopsy showing evidence of ANT, no GN DC IVF nephro following, HD 3 times weekly for now, working on OP setting RUE swelling 2/2 thrombophlebitis Improving US showed thrombophlebitis, to use ice and elevation hypercoagulable work up pending SIRS No clear source of of infection, could be UTI, line infx, thrombophlebitis negative blood and urine culture DC broad spectrum Abx ID following, add Doxycycline for possible tick-borne disease monitor overnight for any fever Acute on chronic Iron def anemia 2/2 blood loss from menses Hb of 7.1 , trnasfuse if below 6 low iron profile, give IV iron follow H&H hyponatremia, acute related to renal failure correction with HD mild persistent asthma stable continue inhalers dvt prophylaxis - hep sq full code reason for continued hospitalization: close monitoring of renal function and need of dialysis pending final blood culture Time Spent With Patient Time: Total time managing care of this patient today ____ minutes. Quality Stroke Does the patient have a stroke diagnosis?: No VTE Prior VTE?: No VTE Risk Level:: Medical - moderate - high VTE Device Contraindication: Treatment Not Indicated VTE Drug Contraindication: Treatment Not Indicated
--- NOTE | 2022-08-22 20:18 | PM.PNNEP ---
Subjective Subjective Date of Service: 08/22/22 Interval history: Seen and evaluated Hb dropped to 7.1, had menses feels better this morning, no more fever Non Oliguric Physical Exam Vital Signs: Vital Signs: Last Vital Signs Temp 99.8 F 08/22/22 20:00 Pulse 98 08/22/22 20:00 Resp 20 08/22/22 20:00 BP 136/84 08/22/22 20:00 Pulse Ox 99 08/22/22 20:00 O2 Del Method Room Air 08/22/22 20:00 BMI result Body Mass Index 22.4 Const: Other: Constitutional : Awake, interactive, not in distress Neck : Normal inspection, Supple Cardiovascular : RRR, no JVP, no lower extremity edema Respiratory : good bilateral air entry, no crackles, wheezes or rhonchi Gastrointestinal: soft, lax, Normal bowel sounds, Non tender Skin : Warm, Dry, Permacath in place with no surrounding erythema , RUE less edema and no tenderness Neurological : Alert & oriented x3, No focal deficit Objective Data Labs 08/22/22 05:54 08/22/22 05:54 Labs: Laboratory Results - last 24 hr 08/22/22 08/22/22 05:54 05:54 WBC 11.6 H RBC 2.35 L Hgb 7.1 L Hct 21.0 L* MCV 89.4 MCH 30.2 MCHC 33.8 RDW 12.1 Plt Count 382 MPV 11.0 Absolute Nucleated RBC 0.000 Nucleated RBC % (auto) 0.0 Sodium 132 L Potassium 4.4 D Chloride 96 Carbon Dioxide 26 Anion Gap 14 BUN 27 H Creatinine 7.73 H* Estim Creat Clear Calc 10.5 Estimated GFR 6 Random Glucose 81 Calcium 8.3 L Microbiology Microbiology Results: Microbiology 08/19/22 16:53 Blood - Venous Blood Culture - Preliminary No growth after 48 hours. 08/19/22 16:53 Blood - Central Line Blood Culture - Preliminary No growth after 48 hours. 08/20/22 02:10 Urine clean catch - Clean Catch Midstream Urine Culture - Final 08/14/22 Unknown Urine clean catch - Urine goss top Urine Culture - Final Lactobacillus species Procedures Date of Service Date of Service: 08/22/22 Assessment & Plan Assessment and plan (1) BARNEY (acute kidney injury): Status: Acute (2) Hyperkalemia: Status: Acute (3) Acidosis: Status: Acute (4) Hyponatremia: Status: Acute Plan Young woman with acute renal failure with severe hyperkalemia and metabolic acidosis with hyponatremia. . Acute tubular necrosis fBased on Bx No GN / Cresents Urinalysis shows dipstick positive protein and blood along with bacteria and no casts with reported.. No evidence of obstruction based on the recent imaging. Unlikely to be allergic interstitial nephritis. Severe metabolic acidosis and hyperkalemia due to acute kidney injury. and hyponatremia due to decreased free water clearance: All improving. Anemia without thrombocytopenia . Hypocalcemia urine protein creatinine ratio.= 0.84 So far MPO and PR3 are negative Complement C3-C4 are within normal range. - other serological tests including BRIELLE, are pending Corrected hyperkalemia medically. DC IV hydration s/p Kidney biopsy in 08/18/22 Priliminary : ATN / Interstitial Nephritis / No Acute GN S/p PC Infection w/u and antibiotics as per medicine F/u Anti-cardiolipin and Lupus anticoagulant F/u serology Had HD Tuesday Next HD on Tuesday based on Labs ( Pased 1.4 liters in last 24 Hrs) Daily Labs IV Iron as ordered d/w medical team yesterday Out pt Hd arrangement in progress- I notified BAR team and sent them insurance info on Tuesday Please call [facility] Pathology re Biopsy - Report says ATN + AIN- I Did not speak to the pathologist ( Need to be verified as we need to know if pt needs steroids - Not on any meds which can cause AIN ) Time Spent With Patient Time: Total time managing care of this patient today ____ minutes. Progress Note: Quality Stroke Does the patient have a stroke diagnosis?: No
[2022-08-23] VITALS (8 sets, daily range): BP systolic 139–162; BP diastolic 60–98; PULSE 76–97; RESP 18–20; TEMP 36.4–37.1; O2SAT 97–100
[2022-08-23] MEDS: Prochlorperazine Edisylate 10 MG/2 ML VIAL 5 MG IVPUSH (02:53)
[2022-08-23 07:04] LABS: Hematocrit 21.9 % (37.0-47.0); Hemoglobin 7.4 g/dl (12.0-16.0); Mean Corpuscular HGB Conc 33.8 g/dl (31.0-35.0); Mean Corpuscular Volume 88.7 fL (80.0-98.0); Mean Platelet Volume 10.2 fL (9.4-12.3); Platelet Count 397 X10*3/uL (160-400); Red Blood Count 2.47 X10*6/uL (4.20-5.50); Red Cell Distribution Width 11.9 % (11.0-16.0); White Blood Count 10.2 X10*3/uL (4.8-10.8)
[2022-08-23 07:51] LABS: Anion Gap 13 (12-20); Blood Urea Nitrogen 41 mg/dL (9-16); Calcium 8.8 mg/dL (8.4-10.2); Carbon Dioxide 27 mmol/L (22-29); Chloride 96 mmol/L (96-108); Creatinine Clr Calc Pharmacy 8.1; Estimated Glomerular Filt Rate 5; Glucose Random 78 mg/dL (60-115); Potassium 4.2 mmol/L (3.3-5.1); Sodium 132 mmol/L (135-145)
[2022-08-23] MEDS: Fluticasone Propionate 100 MCG BLST.W.DEV 2 PUFF INHALE ×2 (07:57→19:28)
[2022-08-23] MEDS: Doxycycline Monohydrate 100 MG CAPSULE PO ×2 (08:42→20:47)
[2022-08-23] MEDS: Iron Sucrose Complex 200 MG in 0.9 % Sodium Chloride 100 ML 440 MG IV (09:40)
--- NOTE | 2022-08-23 12:15 | P.PNIM_ITS ---
Subjective Subjective Date of Service: 08/23/22 Interval History: Seen and evaluated while in dialysis Hb stable at 7.4, had menses Biopsy concerning for possible AIN feels better this morning, no more fever no other overnight events Review of Systems Review of Systems: Yes all other systems are reviewed and are negative Physical Exam Vital Signs: Vital Signs: Last Vital Signs Temp 97.5 F 08/23/22 07:48 Pulse 85 08/23/22 07:59 Resp 18 08/23/22 07:59 BP 141/90 H 08/23/22 07:48 Pulse Ox 98 08/23/22 07:48 O2 Del Method Room Air 08/23/22 07:48 BMI result Body Mass Index 22.4 Const: Other: Constitutional : Awake, interactive, not in distress Neck : Normal inspection, Supple Cardiovascular : RRR, no JVP, no lower extremity edema Respiratory : good bilateral air entry, no crackles, wheezes or rhonchi Gastrointestinal: soft, lax, Normal bowel sounds, Non tender Skin : Warm, Dry, Permacath in place with no surrounding erythema , RUE less edema and no tenderness Neurological : Alert & oriented x3, No focal deficit Objective Data Active Medications Acetaminophen (Acetaminophen 325 Mg Tablet) 650 mg PO Q6H PRN PRN Reason: Pain, Mild (Pain Scale 1-3) Last Admin: 08/18/22 15:49 Dose: 650 mg Documented By: RASHMI Albuterol Sulfate (Albuterol Sulfate 90 Mcg 8 Gm Inhaler) 2 puff INHALE Q6H PRN PRN Reason: shortness of breath or wheezing Last Admin: 08/20/22 19:59 Dose: 2 puff Documented By: EJ Clotrimazole (Clotrimazole 1 % Cream 15 Gm Tube) 1 appl TOPICAL BID [facility]; Protocol Last Admin: 08/23/22 09:18 Dose: Not Given Documented By: OLY Non-Admin Reason: Patient Refused Docusate Sodium (Docusate Sodium 100 Mg Capsule) 100 mg PO DAILY PRN PRN Reason: Constipation Doxycycline Monohydrate (Doxycycline Monohydrate 100 Mg Capsule) 100 mg PO Q12H [facility] Last Admin: 08/23/22 08:42 Dose: 100 mg Documented By: OLY Fluticasone Propionate (Fluticasone Propionate 100 Mcg Blst.W.Dev) 2 puff I NHALE RBID [facility] Last Admin: 08/23/22 07:57 Dose: 2 puff Documented By: LUCAS Heparin Sodium (Porcine) (Heparin Sodium,Porcine 5,000 Unit/Ml Vial) 5,000 unit SUBCUT Q12H [facility] Last Admin: 08/21/22 10:08 Dose: Not Given Documented By: VIKRAM Non-Admin Reason: Off unit: Dialysis Methylprednisolone Sodium Succinate (Methylprednisolone Sod Succ 125 Mg/2 Ml Vial) 500 mg IVPUSH Q24H [facility] Stop: 08/26/22 12:14 Omeprazole (Omeprazole 40 Mg Capsule.Dr) 40 mg PO DAILY@629 [facility] Ondansetron HCl (Ondansetron Hcl 4 Mg/2 Ml Vial) 4 mg IVPUSH Q8H PRN PRN Reason: Nausea and Vomiting Last Admin: 08/21/22 16:44 Dose: 4 mg Documented By: VIKRAM Pharmacy Consult (Consult Rx Perform Med Rec) 1 each MISCELLANE ONCE PRN PRN Reason: Consult order Prochlorperazine Edisylate (Prochlorperazine Edisylate 10 Mg/2 Ml Vial) 5 mg IVPUSH Q6H PRN PRN Reason: nasuea Last Admin: 08/23/22 02:53 Dose: 5 mg Documented By: DAVINA Simethicone (Simethicone 80 Mg Tab.Chew) 80 mg PO QIDWMHS PRN PRN Reason: Gas Last Admin: 08/21/22 18:21 Dose: 80 mg Documented By: VIKRAM Sodium Chloride (0.9 % Sodium Chloride Flush 3 Ml Syringe) 3 ml IVFLUSH QSHIFT [facility] Last Admin: 08/23/22 09:18 Dose: Not Given Documented By: OLY Non-Admin Reason: Previously Administered Labs 08/23/22 06:58 08/23/22 06:58 Labs: Laboratory Results - last 24 hr 08/23/22 08/23/22 06:58 06:58 MCV 88.7 MCH 30.0 MCHC 33.8 RDW 11.9 Plt Count 397 MPV 10.2 Absolute Nucleated RBC 0.000 Nucleated RBC % (auto) 0.0 Anion Gap 13 Estim Creat Clear Calc 8.1 Estimated GFR 5 Random Glucose 78 Calcium 8.8 D Assessment and Plan (1) Need for acute hemodialysis: Status: Acute (2) SIRS (systemic inflammatory response syndrome): Status: Acute Plan 27F PMH mild persistent asthma presented with malaise, nausea, found to have severe BARNEY with metabolic acidosis, hyperkalemia acute kidney injury complicated by acute metabolic acidosis, hyperkalemia, uremia hyperkalemia and acidosis resolved Cr at 10, making good amount of urine s/p permacath and HD initiated 08/16/22 MPO and PR3 are negative, normal C3,C4 kidney biopsy showing evidence of ATN\AIN, no GN DC IVF nephro following, HD 3 times weekly for now, start pulse steroid therapy for 3 days, working on OP setting RUE swelling 2/2 thrombophlebitis Improving US showed thrombophlebitis, to use ice and elevation hypercoagulable work up pending SIRS No clear source of of infection, could be UTI, line infx, thrombophlebitis negative blood and urine culture DC broad spectrum Abx ID following, add Doxycycline for possible tick-borne disease for total of 2 weeks monitor overnight for any fever Acute on chronic Iron def anemia 2/2 blood loss from menses Hb of 7.4 , transfuse if below 7 low iron profile, give IV iron follow H&H hyponatremia, acute related to renal failure correction with HD mild persistent asthma stable continue inhalers dvt prophylaxis - hep sq full code reason for continued hospitalization: close monitoring of renal function and need of dialysis with pulse steroid therapy for 3 days Time Spent With Patient Time: Total time managing care of this patient today ____ minutes. Quality Stroke Does the patient have a stroke diagnosis?: No VTE Prior VTE?: No VTE Risk Level:: Medical - moderate - high VTE Device Contraindication: Treatment Not Indicated VTE Drug Contraindication: Treatment Not Indicated
--- NOTE | 2022-08-23 14:12 | MHC.CM.PN ---
EMR REVIEWED, PT NOT MEDICALLY CLEARED FOR DC (CLOSE RENAL MONITORING, OP DIALYSIS BEING ARRANGED) CM WILL CONTINUE TO FOLLOW FOR DC NEEDS
[2022-08-23] MEDS: Omeprazole 40 MG CAPSULE.DR PO (15:04)
[2022-08-23] MEDS: 0.9 % Sodium Chloride Flush 3 ML SYRINGE IVFLUSH ×2 (15:04→20:49)
[2022-08-23] MEDS: methylPREDNISolone Sod Succ 125 MG/2 ML VIAL 500 MG IVPUSH (15:05)
--- NOTE | 2022-08-23 16:31 | P.PNNP_ITS ---
Subjective Subjective Date of Service: 08/23/22 Interval history: Seen adn examined, currently on HD as making good urine but SCr 7--> 10 Physical Exam Vital Signs: Vital Signs: Last Vital Signs Temp 98.8 F 08/23/22 15:22 Pulse 89 08/23/22 15:22 Resp 18 08/23/22 15:22 BP 157/60 H 08/23/22 15:22 Pulse Ox 98 08/23/22 15:22 O2 Del Method Room Air 08/23/22 15:22 BMI result Body Mass Index 22.4 Const: Other: Constitutional : Awake, interactive, not in distress Neck : Normal inspection, Supple Cardiovascular : RRR, no JVP, no lower extremity edema Respiratory : good bilateral air entry, no crackles, wheezes or rhonchi Gastrointestinal: soft, lax, Normal bowel sounds, Non tender Skin : Warm, Dry, Permacath in place with no surrounding erythema , RUE less edema and no tenderness Neurological : Alert & oriented x3, No focal deficit General: cooperative, healthy appearing, comfortable and well developed Nutritional Appearance: well nourished Orientation/consciousness: oriented to person, oriented to place and oriented to time HEENT: Head: Yes normal to inspection General nose exam: no nasal discharge noted and no epistaxis Face and sinus: Yes normal facial exam and No erythema Mouth: Normal oral and palatal mucosa present Teeth and gingiva: dentition normal Eyes: General: appearance normal, both eyes and all related structures Sclerae: sclerae normal Pupils: Equal, round and reactive pupils present Neck: Neck: Yes no lymphadenopathy, Yes supple, No tender and Yes no JVD Thyroid: Thyroid normal Resp: Effort & Inspection: normal respiratory effort Auscultation: clear to auscultation bilaterally, no rales and no wheezes Cardio: Jugular venous distension: no JVD Palpation: no palpable S3 and no palpable S4 Rate: regular rate Rhythm: regular rhythm Heart sounds: no murmurs and no rubs GI: Inspection: Yes normal to inspection Palpation (GI): Soft to palpation, nontender and no masses Percussion: Yes normal to percussion Auscultation: normal bowel sounds : General: Yes no CVA tenderness Back/Spine/Pelvis: Back: no CVA tenderness Skin: General skin exam: no rashes or lesions noted, no ecchymosis, no erythema and no purpura Lesions: no lesions Neuro: General: oriented to person, oriented to place, oriented to time and moves all extremities Cranial nerves: Yes CN's II-XII intact bilaterally and Yes Equal, round and reactive pupils present Speech: Abnormal speech present Motor exam (neuro): 5/5 motor strength present throughout and No Asterixis during motor activity present Extrem: General: Yes normal to inspection, Yes no joint enlargement, Yes no pedal edema and No clubbing Psych: Appearance: grossly normal Objective Data Labs 08/23/22 06:58 08/23/22 06:58 Labs: Laboratory Results - last 24 hr 08/23/22 08/23/22 06:58 06:58 WBC 10.2 RBC 2.47 L Hgb 7.4 L Hct 21.9 L MCV 88.7 MCH 30.0 MCHC 33.8 RDW 11.9 Plt Count 397 MPV 10.2 Absolute Nucleated RBC 0.000 Nucleated RBC % (auto) 0.0 Sodium 132 L Potassium 4.2 Chloride 96 Carbon Dioxide 27 Anion Gap 13 BUN 41 H Creatinine 10.07 H* Estim Creat Clear Calc 8.1 Estimated GFR 5 Random Glucose 78 Calcium 8.8 D Microbiology Microbiology Results: Microbiology 08/19/22 16:53 Blood - Venous Blood Culture - Preliminary No growth after 48 hours. 08/19/22 16:53 Blood - Central Line Blood Culture - Preliminary No growth after 48 hours. 08/20/22 02:10 Urine clean catch - Clean Catch Midstream Urine Culture - Final 08/14/22 Unknown Urine clean catch - Urine goss top Urine Culture - Final Lactobacillus species Procedures Date of Service Date of Service: 08/23/22 Assessment & Plan Assessment and plan (1) BARNEY (acute kidney injury): Status: Acute (2) Hyperkalemia: Status: Acute (3) Acidosis: Status: Acute (4) Hyponatremia: Status: Acute Plan Confusing Case of severe BARNEY in a o/w healthy patient with no signif PMH and kidney Bx orig reported as ATN but on furhter eval is c/w ATIN ( Acute Tubulo- Interstial Nephritis) and noted pyuria ( culture neg) 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 No medications ( deneis NSAID) No evid of auto-immune Dz IF on Bx negative ( need to stain for IgG4--I jonathan sk renal path to perform) Infectious assoc AIN have been reported Idiopathci AIN really not reported in the literature but suspect it happens and simply so infreq that its not reported - BARNEY non-oliguri: remaois HD dep but hopeful that she will have signif recovery given incr UOP and kidny Bx does not show signig interasttial firosis - Anemia w Fe def Rec: pulse steroids 500 qd x3 then 1mg/kg; cont HD for now ( outpt spot being sorted out); IV Fe given no evid of active infetion ( will start tomorrow) Time Spent With Patient Time: Total time managing care of this patient today ____ minutes. Progress Note: Quality Stroke Does the patient have a stroke diagnosis?: No
[2022-08-24] VITALS (9 sets, daily range): BP systolic 135–164; BP diastolic 76–94; PULSE 82–97; RESP 18–20; TEMP 36.3–37.3; O2SAT 97–100
[2022-08-24 04:17] LABS: Anion Gap 16 (12-20); Blood Urea Nitrogen 27 mg/dL (9-16); Carbon Dioxide 27 mmol/L (22-29); Chloride 95 mmol/L (96-108); Creatinine Clr Calc Pharmacy 12.3; Estimated Glomerular Filt Rate 8; Glucose Random 150 mg/dL (60-115); Potassium 4.3 mmol/L (3.3-5.1); Sodium 134 mmol/L (135-145)
[2022-08-24] MEDS: Omeprazole 40 MG CAPSULE.DR PO (05:47)
[2022-08-24] MEDS: Fluticasone Propionate 100 MCG BLST.W.DEV 2 PUFF INHALE ×2 (08:06→20:05)
[2022-08-24] MEDS: 0.9 % Sodium Chloride Flush 3 ML SYRINGE IVFLUSH ×3 (08:08→23:25)
[2022-08-24] MEDS: Doxycycline Monohydrate 100 MG CAPSULE PO ×2 (08:08→21:05)
[2022-08-24] MEDS: Ferrous Sulfate 324 MG TABLET.DR PO ×2 (10:16→17:22)
--- NOTE | 2022-08-24 10:25 | MHC.CM.PN ---
EMR REVIEWED, CM CONTACTED [facility] RADER TO CONFIRM PT'S HD SCHEDULE HOWEVER STEPHANIE AT [facility]POR[facility] SHE WILL HAVE P[facility]UL[facility] CM BACK THERE WAS AN ISSUE W/PT'S INSURANCE, CM AWAITING CALL.
--- NOTE | 2022-08-24 12:03 | HO.PM.IMPN ---
Subjective Subjective Date of Service: 08/24/22 Interval History: Seen and evaluated while in dialysis Biopsy concerning for possible AIN, started pulse steroid therapy feels better this morning, making good amount of urine no more fever or chills no other overnight events Review of Systems Review of Systems: Yes all other systems are reviewed and are negative Physical Exam Vital Signs: Vital Signs: Last Vital Signs Temp 98.8 F 08/24/22 11:14 Pulse 94 08/24/22 11:14 Resp 20 08/24/22 11:14 BP 146/86 H 08/24/22 11:21 Pulse Ox 99 08/24/22 11:14 O2 Del Method Room Air 08/24/22 11:14 BMI result Body Mass Index 22.4 Const: Other: Constitutional : Awake, interactive, not in distress Neck : Normal inspection, Supple Cardiovascular : RRR, no JVP, no lower extremity edema Respiratory : good bilateral air entry, no crackles, wheezes or rhonchi Gastrointestinal: soft, lax, Normal bowel sounds, Non tender Skin : Warm, Dry, Permacath in place with no surrounding erythema , RUE less edema and no tenderness Neurological : Alert & oriented x3, No focal deficit Objective Data Active Medications Acetaminophen (Acetaminophen 325 Mg Tablet) 650 mg PO Q6H PRN PRN Reason: Pain, Mild (Pain Scale 1-3) Last Admin: 08/18/22 15:49 Dose: 650 mg Documented By: RASHMI Albuterol Sulfate (Albuterol Sulfate 90 Mcg 8 Gm Inhaler) 2 puff INHALE Q6H PRN PRN Reason: shortness of breath or wheezing Last Admin: 08/20/22 19:59 Dose: 2 puff Documented By: EJ Clotrimazole (Clotrimazole 1 % Cream 15 Gm Tube) 1 appl TOPICAL BID [facility]; Protocol Last Admin: 08/24/22 08:08 Dose: Not Given Documented By: OLY Non-Admin Reason: Patient Refused Docusate Sodium (Docusate Sodium 100 Mg Capsule) 100 mg PO DAILY PRN PRN Reason: Constipation Doxycycline Monohydrate (Doxycycline Monohydrate 100 Mg Capsule) 100 mg PO Q12H [facility] Last Admin: 08/24/22 08:08 Dose: 100 mg Documented By: OLY Ferrous Sulfate (Ferrous Sulfate 324 Mg Tablet.) 324 mg PO BIDWM [facility] Last Admin: 08/24/22 10:16 Dose: 324 mg Documented By: OLY Fluticasone Propionate (Fluticasone Propionate 100 Mcg Blst.W.Dev) 2 puff INHALE RBID [facility] Last Admin: 08/24/22 08:06 Dose: 2 puff Documented By: LUCAS Heparin Sodium (Porcine) (Heparin Sodium,Porcine 5,000 Unit/Ml Vial) 5,000 unit SUBCUT Q12H [facility] Last Admin: 08/21/22 10:08 Dose: Not Given Documented By: VIKRAM Non-Admin Reason: Off unit: Dialysis Methylprednisolone Sodium Succinate 500 mg/ Sodium Chloride 50 mls @ 50 mls/hr IV Q24H [facility] Omeprazole (Omeprazole 40 Mg Capsule.) 40 mg PO DAILY@0630 [facility] Last Admin: 08/24/22 05:47 Dose: 40 mg Documented By: FELIPE Ondansetron HCl (Ondansetron Hcl 4 Mg/2 Ml Vial) 4 mg IVPUSH Q8H PRN PRN Reason: Nausea and Vomiting Last Admin: 08/21/22 16:44 Dose: 4 mg Documented By: VIKRAM Pharmacy Consult (Consult Rx Perform Med Rec) 1 each MISCELLANE ONCE PRN PRN Reason: Consult order Prochlorperazine Edisylate (Prochlorperazine Edisylate 10 Mg/2 Ml Vial) 5 mg IVPUSH Q6H PRN PRN Reason: nasuea Last Admin: 08/23/22 02:53 Dose: 5 mg Documented By: DAVINA Simethicone (Simethicone 80 Mg Tab.Chew) 80 mg PO QIDWMHS PRN PRN Reason: Gas Last Admin: 08/21/22 18:21 Dose: 80 mg Documented By: VIKRAM Sodium Chloride (0.9 % Sodium Chloride Flush 3 Ml Syringe) 3 ml IVFLUSH QSHIFT [facility] Last Admin: 08/24/22 08:08 Dose: 3 ml Documented By: OLY Labs 08/23/22 06:58 08/24/22 03:39 Labs: Laboratory Results - last 24 hr 08/24/22 03:39 Anion Gap 16 Estim Creat Clear Calc 12.3 Estimated GFR 8 Random Glucose 150 H Calcium 9.0 Assessment and Plan (1) Need for acute hemodialysis: Status: Acute (2) SIRS (systemic inflammatory response syndrome): Status: Acute (3) Thrombophlebitis arm: Status: Acute (4) BARNEY (acute kidney injury): Status: Acute Plan 27F PMH mild persistent asthma presented with malaise, nausea, found to have severe BARNEY with metabolic acidosis, hyperkalemia acute kidney injury complicated by acute metabolic acidosis, hyperkalemia, uremia hyperkalemia and acidosis resolved Cr at 10, making good amount of urine s/p permacath and HD initiated 08/16/22 MPO and PR3 are negative, normal C3,C4 kidney biopsy showing evidence of ATN\AIN, no GN DC IVF nephro following, HD 3 times weekly for now, pulse steroid therapy for 2/3 days, working on OP setting RUE swelling 2/2 thrombophlebitis Improving US showed thrombophlebitis, to use ice and elevation hypercoagulable work up pending SIRS No clear source of of infection, could be UTI, line infx, thrombophlebitis negative blood and urine culture DC broad spectrum Abx ID following, add Doxycycline for possible tick-borne disease for total of 2 weeks monitor overnight for any fever Acute on chronic Iron def anemia 2/2 blood loss from menses Hb of 7.4 , transfuse if below 7 low iron profile, give IV iron follow H&H hyponatremia, acute related to renal failure correction with HD mild persistent asthma stable continue inhalers dvt prophylaxis - hep sq full code reason for continued hospitalization: close monitoring of renal function and need of dialysis with pulse steroid therapy for 3 days Time Spent With Patient Time: Total time managing care of this patient today ____ minutes. Quality Stroke Does the patient have a stroke diagnosis?: No VTE Prior VTE?: No VTE Risk Level:: Medical - moderate - high VTE Device Contraindication: Treatment Not Indicated VTE Drug Contraindication: Treatment Not Indicated
[2022-08-24] MEDS: Simethicone 80 MG TAB.CHEW PO (13:15)
--- NOTE | 2022-08-24 16:43 | P.PNNP_ITS ---
Subjective Subjective Date of Service: 08/24/22 Interval history: Seen and exmained, events ntoed Physical Exam Vital Signs: Vital Signs: Last Vital Signs Temp 98.2 F 08/24/22 14:59 Pulse 89 08/24/22 14:59 Resp 18 08/24/22 14:59 BP 145/76 H 08/24/22 14:59 Pulse Ox 98 08/24/22 14:59 O2 Del Method Room Air 08/24/22 14:59 BMI result Body Mass Index 22.4 Const: Other: Constitutional : Awake, interactive, not in distress Neck : Normal inspection, Supple Cardiovascular : RRR, no JVP, no lower extremity edema Respiratory : good bilateral air entry, no crackles, wheezes or rhonchi Gastrointestinal: soft, lax, Normal bowel sounds, Non tender Skin : Warm, Dry, Permacath in place with no surrounding erythema , RUE less luis ma and no tenderness Neurological : Alert & oriented x3, No focal deficit General: cooperative, healthy appearing, comfortable and well developed Nutritional Appearance: well nourished Orientation/consciousness: oriented to person, oriented to place and oriented to time HEENT: Head: Yes normal to inspection General nose exam: no nasal discharge noted and no epistaxis Face and sinus: Yes normal facial exam and No erythema Mouth: Normal oral and palatal mucosa present Teeth and gingiva: dentition normal Eyes: General: appearance normal, both eyes and all related structures Sclerae: sclerae normal Pupils: Equal, round and reactive pupils present Neck: Neck: Yes no lymphadenopathy, Yes supple, No tender and Yes no JVD Thyroid: Thyroid normal Resp: Effort & Inspection: normal respiratory effort Auscultation: clear to auscultation bilaterally, no rales and no wheezes Cardio: Jugular venous distension: no JVD Palpation: no palpable S3 and no palpable S4 Rate: regular rate Rhythm: regular rhythm Heart sounds: no murmurs and no rubs GI: Inspection: Yes normal to inspection Palpation (GI): Soft to palpation, nontender and no masses Percussion: Yes normal to percussion Auscultation: normal bowel sounds : General: Yes no CVA tenderness Back/Spine/Pelvis: Back: no CVA tenderness Skin: General skin exam: no rashes or lesions noted, no ecchymosis, no erythema and no purpura Lesions: no lesions Neuro: General: oriented to person, oriented to place, oriented to time and moves all extremities Cranial nerves: Yes CN's II-XII intact bilaterally and Yes Equal, round and reactive pupils present Speech: Abnormal speech present Motor exam (neuro): 5/5 motor strength present throughout and No Asterixis during motor activity present Extrem: General: Yes normal to inspection, Yes no joint enlargement, Yes no pedal edema and No clubbing Psych: Appearance: grossly normal Objective Data Labs 08/23/22 06:58 08/24/22 03:39 Labs: Laboratory Results - last 24 hr 08/24/22 03:39 Sodium 134 L Potassium 4.3 Chloride 95 L Carbon Dioxide 27 Anion Gap 16 BUN 27 H Creatinine 6.57 H* Estim Creat Clear Calc 12.3 Estimated GFR 8 Random Glucose 150 H Calcium 9.0 Microbiology Microbiology Results: Microbiology 08/19/22 16:53 Blood - Venous Blood Culture - Preliminary No growth after 48 hours. 08/19/22 16:53 Blood - Central Line Blood Culture - Preliminary No growth after 48 hours. 08/20/22 02:10 Urine clean catch - Clean Catch Midstream Urine Culture - Final 08/14/22 Unknown Urine clean catch - Urine goss top Urine Culture - Final Lactobacillus species Procedures Date of Service Date of Service: 08/24/22 Assessment & Plan Assessment and plan (1) BARNEY (acute kidney injury): Status: Acute (2) Hyperkalemia: Status: Acute (3) Acidosis: Status: Acute (4) Hyponatremia: Status: Acute Plan Confusing Case of severe BARNEY in a o/w healthy patient with no signif PMH and kidney Bx orig reported as ATN but on furhter eval is c/w ATIN ( Acute Tubulo- Interstial Nephritis) and noted pyuria ( culture neg) 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 No medications ( deneis NSAID) No evid of auto-immune Dz IF on Bx negative ( need to stain for IgG4--I jonathan sk renal path to perform) Infectious assoc AIN have been reported Idiopathci AIN really not reported in the literature but suspect it happens and simply not reported - BARNEY non-oliguri: remains HD dep but hopeful that she will have signif recovery given incr UOP and kidny Bx does not show signig interasttial firosis which is also a favorable sign - Anemia w Fe def Rec: pulse steroids 500 qd x3 then 1mg/kg; cont HD for now ( outpt spot being s orted out); IV Fe given no evid of active infetion; epo ordered as well Time Spent With Patient Time: Total time managing care of this patient today ____ minutes. Progress Note: Quality Stroke Does the patient have a stroke diagnosis?: No
[2022-08-24] MEDS: methylPREDNISolone Sod Succ 500 MG in 0.9 % Sodium Chloride 50 ML 50 MG IV (17:23)
[2022-08-24 23:34] LABS: PTT (LAC) Screen 37 sec (<=40)
[2022-08-25] VITALS (7 sets, daily range): BP systolic 139–155; BP diastolic 80–102; PULSE 64–102; RESP 18–20; TEMP 36.4–37; O2SAT 98–100
[2022-08-25 07:33] LABS: Anion Gap 16 (12-20); Blood Urea Nitrogen 53 mg/dL (9-16); Calcium 9.1 mg/dL (8.4-10.2); Carbon Dioxide 27 mmol/L (22-29); Chloride 94 mmol/L (96-108); Estimated Glomerular Filt Rate 6; Glucose Random 99 mg/dL (60-115); Potassium 4.1 mmol/L (3.3-5.1); Sodium 133 mmol/L (135-145)
[2022-08-25] MEDS: Ferrous Sulfate 324 MG TABLET.DR PO ×2 (10:35→16:51)
[2022-08-25] MEDS: Doxycycline Monohydrate 100 MG CAPSULE PO ×2 (10:35→20:35)
[2022-08-25] MEDS: 0.9 % Sodium Chloride Flush 3 ML SYRINGE IVFLUSH ×3 (10:36→20:39)
[2022-08-25] MEDS: Fluticasone Propionate 100 MCG BLST.W.DEV 2 PUFF INHALE ×2 (10:37→19:44)
--- NOTE | 2022-08-25 11:43 | HO.PM.IMPN ---
Subjective Subjective Date of Service: 08/25/22 Interval History: overall improving, non oliguric Physical Exam Vital Signs: Vital Signs: Last Vital Signs Temp 98.2 F 08/25/22 10:28 Pulse 91 08/25/22 10:28 Resp 20 08/25/22 10:28 BP 155/92 H 08/25/22 10:28 Pulse Ox 100 08/25/22 10:28 O2 Del Method Room Air 08/25/22 10:28 BMI result Body Mass Index 22.4 General: AO X 3, no acute distress Resp: CTA bilateral, no accessory muscles used CVS: S1,S2,RRR GI: soft, non tender, non distended Neuro: motor grossly intact, alert Psych: appropriate affect, appropriate insight Objective Data Active Medications Acetaminophen (Acetaminophen 325 Mg Tablet) 650 mg PO Q6H PRN PRN Reason: Pain, Mild (Pain Scale 1-3) Last Admin: 08/18/22 15:49 Dose: 650 mg Documented By: RASHMI Albuterol Sulfate (Albuterol Sulfate 90 Mcg 8 Gm Inhaler) 2 puff INHALE Q6H PRN PRN Reason: shortness of breath or wheezing Last Admin: 08/20/22 19:59 Dose: 2 puff Documented By: EJ Clotrimazole (Clotrimazole 1 % Cream 15 Gm Tube) 1 appl TOPICAL BID [facility]; Protocol Last Admin: 08/25/22 10:37 Dose: Not Given Documented By: SAE Non-Admin Reason: Patient Refused Docusate Sodium (Docusate Sodium 100 Mg Capsule) 100 mg PO DAILY PRN PRN Reason: Constipation Doxycycline Monohydrate (Doxycycline Monohydrate 100 Mg Capsule) 100 mg PO Q12H [facility] Last Admin: 08/25/22 10:35 Dose: 100 mg Documented By: SAE Ferrous Sulfate (Ferrous Sulfate 324 Mg Tablet.Dr) 324 mg PO BIDWM [facility] Last Admin: 08/25/22 10:35 Dose: 324 mg Documented By: SAE Fluticasone Propionate (Fluticasone Propionate 100 Mcg Blst.W.Dev) 2 puff INHALE RBID [facility] Last Admin: 08/25/22 10:37 Dose: 2 puff Documented By: SAE Heparin Sodium (Porcine) (Heparin Sodium,Porcine 5,000 Unit/Ml Vial) 5,000 unit SUBCUT Q12H [facility] Last Admin: 08/21/22 10:08 Dose: Not Given Documented By: VIKRAM Non-Admin Reason: Off unit: Dialysis Methylprednisolone Sodium Succinate 500 mg/ Sodium Chloride 50 mls @ 50 mls/hr IV Q24H [facility] Last Infusion: 08/24/22 18:25 Dose: 0 mls/hr Documented By: OLY Omeprazole (Omeprazole 40 Mg Capsule.Dr) 40 mg PO DAILY@0630 [facility] Last Admin: 08/25/22 10:36 Dose: Not Given Documented By: SAE Non-Admin Reason: Off unit: Dialysis Ondansetron HCl (Ondansetron Hcl 4 Mg/2 Ml Vial) 4 mg IVPUSH Q8H PRN PRN Reason: Nausea and Vomiting Last Admin: 08/21/22 16:44 Dose: 4 mg Documented By: VIKRAM Pharmacy Consult (Consult Rx Perform Med Rec) 1 each MISCELLANE ONCE PRN PRN Reason: Consult order Prochlorperazine Edisylate (Prochlorperazine Edisylate 10 Mg/2 Ml Vial) 5 mg IVPUSH Q6H PRN PRN Reason: nasuea Last Admin: 08/23/22 02:53 Dose: 5 mg Documented By: DAVINA Simethicone (Simethicone 80 Mg Tab.Chew) 80 mg PO QIDWMHS PRN PRN Reason: Gas Last Admin: 08/24/22 13:15 Dose: 80 mg Documented By: OLY Sodium Chloride (0.9 % Sodium Chloride Flush 3 Ml Syringe) 3 ml IVFLUSH QSHIFT [facility] Last Admin: 08/25/22 10:36 Dose: 3 ml Documented By: SAE Labs 08/23/22 06:58 08/25/22 06:24 Labs: Laboratory Results - last 24 hr 08/19/22 08/25/22 10:43 06:24 LA PTT Screen 37 LA Thrombin Time TNP dRVV Screen 38 dRVVT Confirm Interp TNP dRVVT Mixing Study TNP dRVVT Mix Interpret TNP Hexagon Phase Neutraliz TNP Lupus Anticoag Interp see note Anion Gap 16 Estim Creat Clear Calc 10.0 Estimated GFR 6 Random Glucose 99 Calcium 9.1 Microbiology Microbiology Results: Microbiology 08/19/22 16:53 Blood Culture - Final Blood - Venous No growth after 5 days. 08/19/22 16:53 Blood Culture - Final Blood - Central Line No growth after 5 days. Assessment and Plan (1) Need for acute hemodialysis: Status: Acute (2) SIRS (systemic inflammatory response syndrome): Status: Acute (3) Thrombophlebitis arm: Status: Acute (4) BARNEY (acute kidney injury): Status: Acute Plan 27F PMH mild persistent asthma presented with malaise, nausea, found to have severe BARNEY with metabolic acidosis, hyperkalemia acute kidney injury complicated by acute metabolic acidosis, hyperkalemia, uremia hyperkalemia and acidosis resolved s/p permacath and HD initiated 08/16/22 MPO and PR3 are negative, normal C3,C4 kidney biopsy showing evidence of ATN\AIN, no GN nephro following, HD 3 times weekly for now, pulse steroid therapy for 3/3 days, working on OP setting RUE swelling 2/2 thrombophlebitis Improving US showed thrombophlebitis, to use ice and elevation hypercoagulable work up pending SIRS No clear source of of infection, could be UTI, line infx, thrombophlebitis negative blood and urine culture DC broad spectrum Abx ID following, added Doxycycline for possible tick-borne disease for total of 2 weeks monitor overnight for any fever Acute on chronic Iron def anemia 2/2 blood loss from menses Hb of 7.4 , transfuse if below 7 low iron profile, give IV iron follow H&H hyponatremia, acute mild, monitor mild persistent asthma stable continue inhalers dvt prophylaxis - hep sq full code reason for continued hospitalization: outpatient HD set up Time Spent With Patient Time: Total time managing care of this patient today ____ minutes. Quality Stroke Does the patient have a stroke diagnosis?: No VTE Prior VTE?: No VTE Risk Level:: Medical - moderate - high VTE Device Contraindication: Treatment Not Indicated VTE Drug Contraindication: Treatment Not Indicated
--- NOTE | 2022-08-25 12:33 | MHC.CM.PN ---
PER ILAN AT [facility] THEIR INSURANCE PEOPLE ARE WORKING W/PT'S INSURANCE MALU TO COME UP W/A PLAN, ILAN REPORTS THERE IS NOTHING CM OR BAR CAN DO OTHER THAN WAIT FOR ANSWER OR REFER PT TO ANOTHER HD CENTER, HOSPITALIST MADE AWARE VIA TIGER, PT WILL REMAIN INPT UNTIL OUTPT HD IS SET UP. CM WILL CONT TO FOLLOW.
[2022-08-25 12:50] LABS: Immunoglobulin G Subclass 1 540 mg/dL (382-929); Immunoglobulin G Subclass 2 255 mg/dL (241-700); Immunoglobulin G Subclass 3 14 mg/dL (22-178); Immunoglobulin G Total 905 mg/dL (600-1640)
[2022-08-25 13:28] LABS: Cardiolipin IgG Ab <2.0 GPL-U/mL; Cardiolipin IgM Ab <2.0 MPL-U/mL
[2022-08-25] MEDS: NIFEdipine ER 30 MG TAB.ER.24 PO (13:43)
[2022-08-25] MEDS: Docusate Sodium 100 MG CAPSULE PO (16:51)
[2022-08-25] MEDS: methylPREDNISolone Sod Succ 500 MG in 0.9 % Sodium Chloride 50 ML 50 MG IV (16:52)
[2022-08-26] VITALS (9 sets, daily range): BP systolic 136–162; BP diastolic 77–93; PULSE 80–104; RESP 18–20; TEMP 36.6–37.2; O2SAT 97–100
[2022-08-26] MEDS: Omeprazole 40 MG CAPSULE.DR PO (05:49)
[2022-08-26 07:12] LABS: Hematocrit 21.8 % (37.0-47.0); Hemoglobin 7.4 g/dl (12.0-16.0); Mean Corpuscular HGB Conc 33.9 g/dl (31.0-35.0); Mean Corpuscular Hemoglobin 29.7 pg (27.0-33.0); Mean Corpuscular Volume 87.6 fL (80.0-98.0); Mean Platelet Volume 9.9 fL (9.4-12.3); Platelet Count 431 X10*3/uL (160-400); Red Blood Count 2.49 X10*6/uL (4.20-5.50); Red Cell Distribution Width 11.9 % (11.0-16.0); White Blood Count 10.1 X10*3/uL (4.8-10.8)
[2022-08-26 07:41] LABS: Anion Gap 16 (12-20); Blood Urea Nitrogen 43 mg/dL (9-16); Calcium 9.2 mg/dL (8.4-10.2); Carbon Dioxide 25 mmol/L (22-29); Chloride 99 mmol/L (96-108); Creatinine Clr Calc Pharmacy 14.8; Estimated Glomerular Filt Rate 9; Glucose Fasting 104 mg/dL (60-99); Sodium 136 mmol/L (135-145)
[2022-08-26] MEDS: 0.9 % Sodium Chloride Flush 3 ML SYRINGE IVFLUSH ×3 (07:55→23:49)
[2022-08-26] MEDS: Ferrous Sulfate 324 MG TABLET.DR PO ×2 (07:55→17:24)
[2022-08-26] MEDS: Doxycycline Monohydrate 100 MG CAPSULE PO ×2 (07:55→19:43)
[2022-08-26] MEDS: NIFEdipine ER 30 MG TAB.ER.24 PO (07:55)
[2022-08-26] MEDS: Fluticasone Propionate 100 MCG BLST.W.DEV 2 PUFF INHALE ×2 (07:56→19:31)
--- NOTE | 2022-08-26 10:14 | HO.PM.IMPN ---
Subjective Subjective Date of Service: 08/26/22 Interval History: stable, good urine output Physical Exam Vital Signs: Vital Signs: Last Vital Signs Temp 97.8 F 08/26/22 07:14 Pulse 98 08/26/22 07:58 Resp 18 08/26/22 07:58 BP 149/90 H 08/26/22 07:14 Pulse Ox 97 08/26/22 07:14 O2 Del Method Room Air 08/26/22 07:14 BMI result Body Mass Index 22.4 General: AO X 3, no acute distress Resp: CTA bilateral, no accessory muscles used CVS: S1,S2,RRR GI: soft, non tender, non distended Neuro: motor grossly intact, alert Psych: appropriate affect, appropriate insight Objective Data Active Medications Acetaminophen (Acetaminophen 325 Mg Tablet) 650 mg PO Q6H PRN PRN Reason: Pain, Mild (Pain Scale 1-3) Last Admin: 08/18/22 15:49 Dose: 650 mg Documented By: RASHMI Albuterol Sulfate (Albuterol Sulfate 90 Mcg 8 Gm Inhaler) 2 puff INHALE Q6H PRN PRN Reason: shortness of breath or wheezing Last Admin: 08/20/22 19:59 Dose: 2 puff Documented By: EJ Clotrimazole (Clotrimazole 1 % Cream 15 Gm Tube) 1 appl TOPICAL BID [facility]; Protocol Last Admin: 08/26/22 08:00 Dose: Not Given Documented By: SAE Non-Admin Reason: Patient Refused Docusate Sodium (Docusate Sodium 100 Mg Capsule) 100 mg PO DAILY PRN PRN Reason: Constipation Last Admin: 08/25/22 16:51 Dose: 100 mg Documented By: SAE Doxycycline Monohydrate (Doxycycline Monohydrate 100 Mg Capsule) 100 mg PO Q12H [facility] Last Admin: 08/26/22 07:55 Dose: 100 mg Documented By: SAE Ferrous Sulfate (Ferrous Sulfate 324 Mg Tablet.Dr) 324 mg PO BIDWM [facility] Last Admin: 08/26/22 07:55 Dose: 324 mg Documented By: SAE Fluticasone Propionate (Fluticasone Propionate 100 Mcg Blst.W.Dev) 2 puff INHALE RBID [facility] Last Admin: 08/26/22 07:56 Dose: 2 puff Documented By: SEFERINO Heparin Sodium (Porcine) (Heparin Sodium,Porcine 5,000 Unit/Ml Vial) 5,000 unit SUBCUT Q12H [facility] Last Admin: 08/21/22 10:08 Dose: Not Given Documented By: VIKRAM Non-Admin Reason: Off unit: Dialysis Nifedipine (Nifedipine Er 30 Mg Tab.Er.24) 30 mg PO DAILY [facility]; Protocol Last Admin: 08/26/22 07:55 Dose: 30 mg Documented By: SAE Omeprazole (Omeprazole 40 Mg Capsule.Dr) 40 mg PO DAILY@0630 [facility] Last Admin: 08/26/22 05:49 Dose: 40 mg Documented By: RAYMUNDO Ondansetron HCl (Ondansetron Hcl 4 Mg/2 Ml Vial) 4 mg IVPUSH Q8H PRN PRN Reason: Nausea and Vomiting Last Admin: 08/21/22 16:44 Dose: 4 mg Documented By: VIKRAM Pharmacy Consult (Consult Rx Perform Med Rec) 1 each MISCELLANE ONCE PRN PRN Reason: Consult order Prednisone (Prednisone 20 Mg Tablet) 60 mg PO DAILY [facility] Prochlorperazine Edisylate (Prochlorperazine Edisylate 10 Mg/2 Ml Vial) 5 mg IVPUSH Q6H PRN PRN Reason: nasuea Last Admin: 08/23/22 02:53 Dose: 5 mg Documented By: DAVINA Simethicone (Simethicone 80 Mg Tab.Chew) 80 mg PO QIDWMHS PRN PRN Reason: Gas Last Admin: 08/24/22 13:15 Dose: 80 mg Documented By: OLY Sodium Chloride (0.9 % Sodium Chloride Flush 3 Ml Syringe) 3 ml IVFLUSH QSHIFT [facility] Last Admin: 08/26/22 07:55 Dose: 3 ml Documented By: SAE Labs 08/26/22 07:01 08/26/22 07:01 Labs: Laboratory Results - last 24 hr 08/19/22 08/19/22 08/23/22 10:43 10:43 16:15 MCV MCH MCHC RDW Plt Count MPV Absolute Nucleated RBC Nucleated RBC % (auto) LA Thrombin Time TNP dRVVT Confirm Interp TNP dRVVT Mixing Study TNP dRVVT Mix Interpret TNP Hexagon Phase Neutraliz TNP Anion Gap Estim Creat Clear Calc Estimated GFR Fasting Glucose Calcium IgG Total 905 IgG Subclass 1 540 IgG Subclass 2 255 IgG Subclass 3 14 L IgG Subclass 4 81.0 Anti-Cardiolipin IgG Ab <2.0 Anti-Cardiolipin IgM Ab <2.0 08/26/22 08/26/22 07:01 07:01 MCV 87.6 MCH 29.7 MCHC 33.9 RDW 11.9 Plt Count 431 H MPV 9.9 Absolute Nucleated RBC 0.000 Nucleated RBC % (auto) 0.0 LA Thrombin Time dRVVT Confirm Interp dRVVT Mixing Study dRVVT Mix Interpret Hexagon Phase Neutraliz Anion Gap 16 Estim Creat Clear Calc 14.8 Estimated GFR 9 Fasting Glucose 104 H Calcium 9.2 IgG Total IgG Subclass 1 IgG Subclass 2 IgG Subclass 3 IgG Subclass 4 Anti-Cardiolipin IgG Ab Anti-Cardiolipin IgM Ab Assessment and Plan (1) Need for acute hemodialysis: Status: Acute (2) SIRS (systemic inflammatory response syndrome): Status: Acute (3) Thrombophlebitis arm: Status: Acute (4) BARNEY (acute kidney injury): Status: Acute Plan 27F PMH mild persistent asthma presented with malaise, nausea, found to have severe BARNEY with metabolic acidosis, hyperkalemia acute kidney injury complicated by acute metabolic acidosis, hyperkalemia, uremia hyperkalemia and acidosis resolved s/p permacath and HD initiated 08/16/22 MPO and PR3 are negative, normal C3,C4 kidney biopsy showing evidence of ATN\AIN, no GN nephro following, HD 3 times weekly for now, s/p pulse steroid therapy for 3/3 days, now on prednisone 60mg daily, working on OP setting RUE swelling 2/2 thrombophlebitis Improving US showed thrombophlebitis, to use ice and elevation hypercoagulable work up pending SIRS No clear source of of infection, could be UTI, line infx, thrombophlebitis negative blood and urine culture DC broad spectrum Abx ID following, added Doxycycline for possible tick-borne disease for total of 2 weeks monitor overnight for any fever Acute on chronic Iron def anemia 2/2 blood loss from menses Hb of 7.4 , transfuse if below 7 low iron profile, give IV iron follow H&H hyponatremia, acute mild, monitor mild persistent asthma stable continue inhalers dvt prophylaxis - hep sq full code reason for continued hospitalization: outpatient HD set up Time Spent With Patient Time: Total time managing care of this patient today ____ minutes. Quality Stroke Does the patient have a stroke diagnosis?: No VTE Prior VTE?: No VTE Risk Level:: Medical - moderate - high VTE Device Contraindication: Treatment Not Indicated VTE Drug Contraindication: Treatment Not Indicated
--- NOTE | 2022-08-26 10:18 | MHC.CM.PN ---
Addendum entered by Ema Chaves 08/26/22 14:17: PER ADAN AT [facility], PAPERWORK RECEIVED. CM SPOKE WITH ADMISSIONS AT [facility] (MELISA) AT TO GIVE INSURANCE INFORMATION PER ADAN'S REQUEST. WILL AWAIT DETERMINATION. PT AND HER FATHER UPDATED. Original Note: PER DR. MEZA, [facility] IS REQUESTING PAPERWORK TO SENT OVER FOR REVIEW FOR POSSIBLE PLACEMENT/ACCEPTANCE FOR HD SERVICES. PAPERWORK FAXED TO ADAN ZUÑIGA AT [phone].
--- NOTE | 2022-08-26 10:39 | P.PNNP_ITS ---
Subjective Subjective Date of Service: 08/26/22 Interval history: Seen and examined, events noted Physical Exam Vital Signs: Vital Signs: Last Vital Signs Temp 97.8 F 08/26/22 07:14 Pulse 98 08/26/22 07:58 Resp 18 08/26/22 07:58 BP 149/90 H 08/26/22 07:14 Pulse Ox 97 08/26/22 07:14 O2 Del Method Room Air 08/26/22 07:14 BMI result Body Mass Index 22.4 Const: Other: Constitutional : Awake, interactive, not in distress Neck : Normal inspection, Supple Cardiovascular : RRR, no JVP, no lower extremity edema Respiratory : good bilateral air entry, no crackles, wheezes or rhonchi Gastrointestinal: soft, lax, Normal bowel sounds, Non tender Skin : Warm, Dry, Permacath in place with no surrounding erythema , RUE less luis ma and no tenderness Neurological : Alert & oriented x3, No focal deficit General: cooperative, healthy appearing, comfortable and well developed Nutritional Appearance: well nourished Orientation/consciousness: oriented to person, oriented to place and oriented to time HEENT: Head: Yes normal to inspection General nose exam: no nasal discharge noted and no epistaxis Face and sinus: Yes normal facial exam and No erythema Mouth: Normal oral and palatal mucosa present Teeth and gingiva: dentition normal Eyes: General: appearance normal, both eyes and all related structures Sclerae: sclerae normal Pupils: Equal, round and reactive pupils present Neck: Neck: Yes no lymphadenopathy, Yes supple, No tender and Yes no JVD Thyroid: Thyroid normal Resp: Effort & Inspection: normal respiratory effort Auscultation: clear to auscultation bilaterally, no rales and no wheezes Cardio: Jugular venous distension: no JVD Palpation: no palpable S3 and no palpable S4 Rate: regular rate Rhythm: regular rhythm Heart sounds: no murmurs and no rubs GI: Inspection: Yes normal to inspection Palpation (GI): Soft to palpation, nontender and no masses Percussion: Yes normal to percussion Auscultation: normal bowel sounds : General: Yes no CVA tenderness Back/Spine/Pelvis: Back: no CVA tenderness Skin: General skin exam: no rashes or lesions noted, no ecchymosis, no erythema and no purpura Lesions: no lesions Neuro: General: oriented to person, oriented to place, oriented to time and moves all extremities Cranial nerves: Yes CN's II-XII intact bilaterally and Yes Equal, round and reactive pupils present Speech: Abnormal speech present Motor exam (neuro): 5/5 motor strength present throughout and No Asterixis during motor activity present Extrem: General: Yes normal to inspection, Yes no joint enlargement, Yes no pedal edema and No clubbing Psych: Appearance: grossly normal Objective Data Labs 08/26/22 07:01 08/26/22 07:01 Labs: Laboratory Results - last 24 hr 08/19/22 08/19/22 08/23/22 10:43 10:43 16:15 WBC RBC Hgb Hct MCV MCH MCHC RDW Plt Count MPV Absolute Nucleated RBC Nucleated RBC % (auto) LA Thrombin Time TNP dRVVT Confirm Interp TNP dRVVT Mixing Study TNP dRVVT Mix Interpret TNP Hexagon Phase Neutraliz TNP Sodium Potassium Chloride Carbon Dioxide Anion Gap BUN Creatinine Estim Creat Clear Calc Estimated GFR Fasting Glucose Calcium IgG Total 905 IgG Subclass 1 540 IgG Subclass 2 255 IgG Subclass 3 14 L IgG Subclass 4 81.0 Anti-Cardiolipin IgG Ab <2.0 Anti-Cardiolipin IgM Ab <2.0 08/26/22 08/26/22 07:01 07:01 WBC 10.1 RBC 2.49 L Hgb 7.4 L Hct 21.8 L MCV 87.6 MCH 29.7 MCHC 33.9 RDW 11.9 Plt Count 431 H MPV 9.9 Absolute Nucleated RBC 0.000 Nucleated RBC % (auto) 0.0 LA Thrombin Time dRVVT Confirm Interp dRVVT Mixing Study dRVVT Mix Interpret Hexagon Phase Neutraliz Sodium 136 Potassium 4.0 Chloride 99 Carbon Dioxide 25 Anion Gap 16 BUN 43 H Creatinine 5.49 H* Estim Creat Clear Calc 14.8 Estimated GFR 9 Fasting Glucose 104 H Calcium 9.2 IgG Total IgG Subclass 1 IgG Subclass 2 IgG Subclass 3 IgG Subclass 4 Anti-Cardiolipin IgG Ab Anti-Cardiolipin IgM Ab Microbiology Microbiology Results: Microbiology 08/19/22 16:53 Blood - Venous Blood Culture - Final No growth after 5 days. 08/19/22 16:53 Blood - Central Line Blood Culture - Final No growth after 5 days. 08/20/22 02:10 Urine clean catch - Clean Catch Midstream Urine Culture - Final 08/14/22 Unknown Urine clean catch - Urine goss top Urine Culture - Final Lactobacillus species Procedures Date of Service Date of Service: 08/26/22 Assessment & Plan Assessment and plan (1) BARNEY (acute kidney injury): Status: Acute (2) Hyperkalemia: Status: Acute (3) Acidosis: Status: Acute (4) Hyponatremia: Status: Acute Plan Confusing Case of severe BARNEY in a o/w healthy patient with no signif PMH and kidney Bx orig reported as ATN but on furhter eval is c/w ATIN ( Acute Tubulo- Interstial Nephritis) and noted pyuria ( culture neg) 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 No medications ( deneis NSAID) No evid of auto-immune Dz IF on Bx negative ( need to stain for IgG4--I jonathan sk renal path to perform) Infectious assoc AIN have been reported Idiopathci AIN really not reported in the literature but suspect it happens and simply not reported - BARNEY non-oliguric: cont incr UOP is a GOOD sign; remains HD dep but hopeful that she will have signif recovery given incr UOP and kidny Bx does not show signig interasttial firosis which is also a favorable sign - Anemia w Fe def -HTN: procardia 30 started Rec: start pred 60 qd and will cont for 2-3 wks and then taper as anticipate renal recovery; cont HD for now ( outpt spot being sorted out--hope to have spot at [facility] in [facility] [place]--tel [phone] as Ashtyn GUIDO at [facility] is working on insurance) anticapate spot avil for Tues next week) HD here at [facility] in am and then d/c with anticapation of HD next Tues at [facility]; check SCr in am prior to HD for signs of renal recovery Time Spent With Patient Time: Total time managing care of this patient today ____ minutes. Progress Note: Quality Stroke Does the patient have a stroke diagnosis?: No
[2022-08-26] MEDS: predniSONE 20 MG TABLET 60 MG PO (11:23)
[2022-08-27] VITALS (8 sets, daily range): BP systolic 138–152; BP diastolic 79–101; PULSE 74–101; RESP 16–20; TEMP 36.6–37.2; O2SAT 98–100
[2022-08-27] MEDS: Acetaminophen 325 MG TABLET 650 MG PO (00:04)
[2022-08-27] MEDS: Omeprazole 40 MG CAPSULE.DR PO (05:26)
[2022-08-27 06:58] LABS: Hemoglobin 7.1 g/dl (12.0-16.0); Mean Corpuscular HGB Conc 34.5 g/dl (31.0-35.0); Mean Corpuscular Hemoglobin 30.1 pg (27.0-33.0); Mean Corpuscular Volume 87.3 fL (80.0-98.0); Mean Platelet Volume 9.9 fL (9.4-12.3); Platelet Count 376 X10*3/uL (160-400); Red Blood Count 2.36 X10*6/uL (4.20-5.50); White Blood Count 10.4 X10*3/uL (4.8-10.8)
[2022-08-27 07:15] LABS: Anion Gap 15 (12-20); Blood Urea Nitrogen 68 mg/dL (9-16); Carbon Dioxide 25 mmol/L (22-29); Chloride 99 mmol/L (96-108); Creatinine Clr Calc Pharmacy 14.9; Estimated Glomerular Filt Rate 9; Glucose Fasting 91 mg/dL (60-99); Potassium 3.8 mmol/L (3.3-5.1); Sodium 135 mmol/L (135-145)
[2022-08-27 07:16] LABS: Hematocrit 20.6 % (37.0-47.0)
[2022-08-27] MEDS: 0.9 % Sodium Chloride Flush 3 ML SYRINGE IVFLUSH (07:33)
[2022-08-27] MEDS: predniSONE 20 MG TABLET 60 MG PO (07:33)
[2022-08-27] MEDS: Doxycycline Monohydrate 100 MG CAPSULE PO (07:34)
[2022-08-27] MEDS: Ferrous Sulfate 324 MG TABLET.DR PO (07:34)
[2022-08-27] MEDS: Fluticasone Propionate 100 MCG BLST.W.DEV 2 PUFF INHALE (08:20)
--- NOTE | 2022-08-27 09:11 | MHC.CM.PN ---
Addendum entered by Antonella Oreilly RN 08/27/22 10:40: CM SPOKE W/DR MEZA OVER [facility], DR MEZA REPORTS HE WILL FOLLOW UP W/PT ON TUESDAY. Addendum entered by Antonella Oreilly RN 08/27/22 10:22: Cm contacted [facility] [phone], Cm was informed that pt has been medically and financially cleared however when CM contacted [facility] [phone] the person answering phone reported Ashtyn Olivier [employer] is out today and pt will be given a time on Tuesday. Original Note: CM AWAITING CALL BACK FROM [facility] FOR CONFIRMATION THEY CAN TAKE PT, PER PREVIOUS CM PT WOULD START AT [facility] NEXT THURSDAY 08/31, NEPHRO TO DETERMINE WHEN PT WILL D/C ONCE HD CENTER IS CONFIRMED.
--- NOTE | 2022-08-27 09:17 | P.DS_ITS ---
DS: Providers Provider Date of Service: 08/27/22 Date of admission: 08/14/22 13:27 Primary care physician: Shannan Bradford MD Consults: 08/14/22 13:27 Consult to Nephrology Routine Consulting Provider: Trent Perez Reason for consultation: BARNEY, ?GN 08/19/22 16:29 Consult to Infectious Diseases Routine Consulting Provider: Mercedes Parra Reason for consultation: fever, concern of line infection DS: Diagnosis Discharge Diagnosis (1) BARNEY (acute kidney injury): Status: Acute (2) Hyperkalemia: Status: Acute (3) Acidosis: Status: Acute (4) Hyponatremia: Status: Acute DS: Summary Hospital Course Hospital Course: from initial hpi: 27-year-old female with history of mild persistent asthma presents to the ED earlier today for evaluation of nausea, vomiting, and intermittent abdominal cramping that started 8 days ago.? She reports she went out to dinner and had a small amount of food at a local restaurant and then had several alcoholic beverages.? When she arrived home, she felt nauseous and had some vomiting.? Since then, she has had intermittent periods of nausea and vomiting but has gone through periods of 2 days without any symptoms.? She has also had bowel movements alternating between constipation and diarrhea.? She had a single episode of diarrhea last night and episode of vomiting last night and this morning.? She has been consuming primarily clear liquids but PO intake has been minimal. Since arrival, has been mildly hypertensive to 153/93.? Afebrile, no hypoxia.? No leukocytosis.? She denies regular etoh use, iliicit drug use, cigarette smoking.? Endorses occasional marijuana use.? Denies any history of similar symptoms.? Mild normocytic anemia with H/H 11.9/32.7.? Initial creatinine 25.3, BUN 196.? Sodium 128, potassium 5.9, chloride 87, CO2 12, anion gap 35, magnesium 3, LFTs normal.? Given 2 L IVF.? Creatinine 24.99, BUN 195.? Sodium 127, potassium 6.3, chloride 91, CO2 11, anion gap 31.? Urinalysis with 1+ leukocytes, negative nitrites, 3+ blood, positive glucose, 2+ protein, positive urinary sediment, 2+ bacteria.? Urine test negative.? Urine tox screen negative.? CT abdomen/pelvis showing small amount of free pelvic fluid that is nonspecific, no other significant intra-abdominal abnormality.? EKG showing sinus rhythm with premature supraventricular complexes with occasional PVCs, rate.? Peak T-waves noted in multiple leaves with T-wave inversions in V1, V2. hospital course: patient was admitted for BARNEY complicated by acute metabolic acidosis, hyperkalemia, uremia. she was initially started on iv fluids, but had no improvmeent so had permacath placed and started on HD. GN work up was unre markable. patient underwent kidney biopsy which was consistent with acute interstitial nephritis, there was no obvious trigger. she was given 3 days pulse steroids and will be discharged on prednisone 60mg daily. she is still requiring HD on discharge and will follow up with nephrology. course was complicated by SIRs, no obvious infection, received empiric doxy, for acute on chronic iron defeciency anemia due to kidney disease and menses was treated with iron and 1 unit prbc, will continue po iron. for mild acute hyponatremia, sodium normalized. for mild persistent asthma she remained stable. Time Spent with Patient Time attestation: Total time managing care of this patient today ____ minutes. Discharge coordination time: Greater than 30 minutes Quality: Safe Use of Opioids Does Pt have an Active Cancer Diagnosis on the Problem List?: No Quality: Stroke Does the patient have a stroke diagnosis?: No Physical Exam Vital Signs: Vital Signs: Last Vital Signs Temp 97.9 F 08/27/22 07:18 Pulse 78 08/27/22 08:21 Resp 16 08/27/22 08:21 BP 152/94 H 08/27/22 07:18 Pulse Ox 99 08/27/22 07:18 O2 Del Method Room Air 08/27/22 07:18 BMI result Body Mass Index 22.4 Const: Other: Constitutional : Awake, interactive, not in distress Neck : Normal inspection, Supple Cardiovascular : RRR, no JVP, no lower extremity edema Respiratory : good bilateral air entry, no crackles, wheezes or rhonchi Gastrointestinal: soft, lax, Normal bowel sounds, Non tender Skin : Warm, Dry, Permacath in place with no surrounding erythema , RUE less edema and no tenderness Neurological : Alert & oriented x3, No focal deficit General: cooperative, healthy appearing, comfortable and well developed Nutritional Appearance: well nourished Orientation/consciousness: oriented to person, oriented to place and oriented to time HEENT: Head: Yes normal to inspection General nose exam: no nasal discharge noted and no epistaxis Face and sinus: Yes normal facial exam and No erythema Mouth: Normal oral and palatal mucosa present Teeth and gingiva: dentition normal Eyes: General: appearance normal, both eyes and all related structures Sclerae: sclerae normal Pupils: Equal, round and reactive pupils present Neck: Neck: Yes no lymphadenopathy, Yes supple, No tender and Yes no JVD Thyroid: Thyroid normal Resp: Effort & Inspection: normal respiratory effort Auscultation: clear to auscultation bilaterally, no rales and no wheezes Cardio: Jugular venous distension: no JVD Palpation: no palpable S3 and no palpable S4 Rate: regular rate Rhythm: regular rhythm Heart sounds: no murmurs and no rubs GI: Inspection: Yes normal to inspection Palpation (GI): Soft to palpation, nontender and no masses Percussion: Yes normal to percussion Auscultation: normal bowel sounds : General: Yes no CVA tenderness Back/Spine/Pelvis: Back: no CVA tenderness Skin: General skin exam: no rashes or lesions noted, no ecchymosis, no erythema and no purpura Lesions: no lesions Neuro: General: oriented to person, oriented to place, oriented to time and moves all extremities Cranial nerves: Yes CN's II-XII intact bilaterally and Yes Equal, round and reactive pupils present Speech: Abnormal speech present Motor exam (neuro): 5/5 motor strength present throughout and No Asterixis during motor activity present Extrem: General: Yes normal to inspection, Yes no joint enlargement, Yes no pedal edema and No clubbing Psych: Appearance: grossly normal DS: Data Data Completed and Pending Completed studies during hospitalization [Text1]: Pending at discharge 08/18/22 11:51 Surgical Path [Surgical] [PTH] Routine Labs on day of discharge: Laboratory Results - last 24 hr 08/27/22 08/27/22 08/27/22 06:44 06:44 07:28 WBC 10.4 RBC 2.36 L Hgb 7.1 L Hct 20.6 L* MCV 87.3 MCH 30.1 MCHC 34.5 RDW 12.0 Plt Count 376 MPV 9.9 Absolute Nucleated RBC 0.000 Nucleated RBC % (auto) 0.0 Sodium 135 Potassium 3.8 Chloride 99 Carbon Dioxide 25 Anion Gap 15 BUN 68 H Creatinine 5.46 H* Estim Creat Clear Calc 14.9 Estimated GFR 9 Fasting Glucose 91 Calcium 9.0 Blood Type O Positive Antibody Screen NEGATIVE Crossmatch See Detail Discharge Plan Discharge Anticipated Discharge Date/Time: 08/27/22 09:13 Patient Disposition: Home, Self-Care Discharge Diagnosis: BARNEY (AIN) Referrals: Shannan Bradford MD [Primary Care Provider] - 1 Week Discharge Medications: New ferrous sulfate 324 mg (65 mg iron) Tablet,Delayed Release (Dr/Ec) 324 mg PO BIDWM Qty: 60 0RF nifedipine 30 mg Tablet Extended Release 24hr 30 mg PO DAILY Qty: 30 0RF Protocol: Hold for SBP< HOLD for SBP < : 90 prednisone 20 mg Tablet 60 mg PO DAILY Qty: 42 0RF omeprazole 40 mg Capsule,Delayed Release(Dr/Ec) 40 mg PO DAILY@0630 Qty: 30 0RF Continued Flovent HFA 110 mcg/actuation HFA aerosol inhaler 2 puff inhalation BID Qty: 36 3RF albuterol sulfate 90 mcg/actuation HFA aerosol inhaler 2 puff inhalation Q6H PRN (Reason: shortness of breath or wheezing) Qty: 8.5 6RF levonorgestrel-ethinyl estrad 0.1-20 mg-mcg tablet 1 tab PO DAILY Qty: 84 3RF Discharge Orders: Discharge Order (Routine); Ordered 08/27/22 Ordered By: Cody Baker Diet: Advance to usual diet Activity on Discharge: As tolerated Stand Alone Forms: Patient Portal Discharge page Care Plan Goals: renal recovery Health Concerns: BARNEY Plan of Treatment: prednisone, blood pressure meds, iron, follow up with nephrology/HD Assessment: see above
--- NOTE | 2022-08-27 12:50 | W.PM.DNNEP ---
Subjective Subjective This patient was seen during dialysis. Interval history: Seen and examined, events noted Physical Exam Vital Signs: Vital Signs: Last Vital Signs Temp 98.2 F 08/27/22 09:54 Pulse 94 08/27/22 09:54 Resp 16 08/27/22 09:54 BP 152/94 H 08/27/22 09:54 Pulse Ox 99 08/27/22 07:18 O2 Del Method Room Air 08/27/22 07:18 BMI result Body Mass Index 22.4 Comfortable Neck is supple Lung: Air entry equal Heart: S1,S2, normal. No rub Abd: Soft. BS + NS : Alert.No asterexis Ext: No edema Assessment & Plan Assessment and plan (1) BARNEY (acute kidney injury): Status: Acute Plan severe BARNEY in a o/w healthy patient with no signif PMH and kidney Bx orig reported as ATN but on furhter eval is c/w ATIN ( Acute Tubulo-Interstial Nephritis) and noted pyuria ( culture neg) 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 reported - BARNEY non-oliguric: cont incr UOP is a GOOD sign; remains HD dep but hopeful that she will have signif recovery given incr UOP and kidny Bx does not show signig interasttial firosis which is also a favorable sign - Anemia w Fe def -HTN: procardia 30 started Rec: startedpred 60 qd and will cont for 2-3 wks and then taper as anticipate renal recovery;? cont HD for now ( outpt spot being sorted out--hope to have spot at [facility] in [facility]--tel [phone] as Ashtyn GUIDO at [facility] is working on insurance) anticapate spot avil for Tues next week) HD here at [facility] in am and then d/c with anticapation of HD next Tu at [facility]; check SCr in am prior to HD for signs of renal recovery Time Spent With Patient Time: Total time managing care of this patient today ____ minutes. Procedures Date of Service Date of Service: 08/28/22
--- NOTE | 2022-08-30 11:00 | P.PNNPD_ITS ---
Subjective Subjective This patient was seen during dialysis. Interval history: Seen and examined, events noted Physical Exam Vital Signs: Vital Signs: Last Vital Signs Temp 97.8 F 08/27/22 11:55 Pulse 74 08/27/22 11:55 Resp 16 08/27/22 09:54 BP 147/101 H 08/27/22 11:55 Pulse Ox 99 08/27/22 07:18 O2 Del Method Room Air 08/27/22 07:18 BMI result Body Mass Index 22.4 Const: General: healthy appearing, comfortable and well developed Nutritional Appearance: well nourished Orientation/consciousness: oriented to person, oriented to place and oriented to time HEENT: General nose exam: no nasal discharge noted and no epistaxis Face and sinus: Yes normal facial exam and No erythema Eyes: General: appearance normal, both eyes and all related structures Sclerae: sclerae normal Neck: Neck: Yes no lymphadenopathy, Yes supple, No tender and Yes no JVD Thyroid: Thyroid normal Resp: Effort & Inspection: normal respiratory effort Auscultation: clear to auscultation bilaterally, no rales and no wheezes Cardio: Jugular venous distension: no JVD Palpation: no palpable S3 and no palpable S4 Rate: regular rate Rhythm: regular rhythm Heart sounds: no murmurs and no rubs GI: Inspection: Yes normal to inspection Palpation (GI): Soft to palpation, nontender and no masses Percussion: Yes normal to percussion Auscultation: normal bowel sounds : General: Yes no CVA tenderness Back/Spine/Pelvis: Back: no CVA tenderness Skin: General skin exam: no rashes or lesions noted, no ecchymosis, no erythema and no purpura Lesions: no lesions Neuro: General: oriented to person, oriented to place and oriented to time Cranial nerves: Yes CN's II-XII intact bilaterally Speech: Abnormal speech present Motor exam (neuro): 5/5 motor strength present throughout and No Asterixis during motor activity present Extrem: General: Yes no joint enlargement, Yes no pedal edema and No clubbing Assessment & Plan Assessment and plan (1) BARNEY (acute kidney injury): Status: Acute Plan severe BARNEY in a o/w healthy patient with no signif PMH and kidney Bx orig reported as ATN but on furhter eval is c/w ATIN ( Acute Tubulo-Interstial Nephritis) and noted pyuria ( culture neg) 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 reported - BARNEY non-oliguric: cont incr UOP is a GOOD sign; remains HD dep but hopeful nick t she will have signif recovery given incr UOP and kidny Bx does not show signig interasttial firosis which is also a favorable sign - Anemia w Fe def -HTN: procardia 30 started Rec: startedpred 60 qd and will cont for 2-3 wks and then taper as anticipate renal recovery;? cont HD for now ( outpt spot being sorted out--hope to have spot at [facility] in [facility]--tel [phone] as Ashtyn GUIDO at [facility] is working on insurance) anticapate spot avil for Tues next week) HD here at [facility] in am and then d/c with anticapation of HD next Tu at [facility]; check SCr in am prior to HD for signs of renal recovery Time Spent With Patient Time: Total time managing care of this patient today ____ minutes. Procedures Date of Service Date of Service: 08/30/22
== END 2022-08-27 15:04 | disposition home or self-care (01) | DRG 674 ==
LOC: HO.ED 08:21 → HO.EDOVER 13:39 → HO.IMC 16:21
PROVIDERS: Family Medicine; Internal Medicine Hypertension Specialist; Physician Assistant Medical; Radiology Diagnostic Radiology; Student in an Organized Health Care Education/Training Program; Admitting Provider Physician Assistant; Emergency Provider Emergency Medicine; PCP Internal Medicine; Visit Provider Internal Medicine
PROC: 0JH63XZ Insertion of Tunneled Vascular Access Device into Chest Subcutaneous Tissue and Fascia, Percutaneous Approach (ICD-10-PCS; principal; 2022-08-16 14:30)
PROC: 0TB13ZX Excision of Left Kidney, Percutaneous Approach, Diagnostic (ICD-10-PCS; principal; 2022-08-18 11:00)
DX: N17.0 Acute kidney failure with tubular necrosis (principal); D62 Acute posthemorrhagic anemia; E87.1 Hypo-osmolality and hyponatremia; E87.21 Acute metabolic acidosis; R65.10 Systemic inflammatory response syndrome (SIRS) of non-infectious origin without acute organ dysfunction; N10 Acute pyelonephritis; I80.8 Phlebitis and thrombophlebitis of other sites; J45.30 Mild persistent asthma, uncomplicated; E86.0 Dehydration; E87.5 Hyperkalemia; E83.51 Hypocalcemia; Z79.3 Long term (current) use of hormonal contraceptives; Z79.899 Other long term (current) drug therapy
CPT/HCPCS: 36415; 36558; 50200; 74176; 77012; 80048; 80053; 80076; 80307; 81001; 81025; 82550; 82784; 82803; 82947; 83520; 83540; 83615; 83690; 83735; 84156; 84165; 84702; 85007; 85025; 85027; 85597; 85610; 85613; 85730; 86021; 86038; 86039; 86147; 86160; 86704; 86706; 86709; 86803; 86850; 86900; 86901; 86923; 87040; 87086; 87340; 88300; 88305; 88313; 88346; 88348; 88350; 89190; 90999; 93005; 93306; 93356; 93971; 94640; 99152; 99285; C1750; C1758; C1769; J0613; J0878; J1643; J1756; J1956; J2405; J2930; P9016; Q9957

== ENCOUNTER 2022-10-11 06:10 | Outpatient (REF) | payer OTHER, SELFPAY ==
[2022-10-11 06:28] LABS: MANUAL DIFF FLAG NO
[2022-10-11 07:25] LABS: Basophils Absolute Auto 0.1 X10*3/uL (0.0-0.2); Basophils Percent Auto 1.5 % (0-2); Eosinophils Absolute Auto 0.5 X10*3/uL (0.0-0.4); Eosinophils Percent Auto 8.3 % (0-4); Hematocrit 39.6 % (37.0-47.0); Hemoglobin 13.5 g/dl (12.0-16.0); Imm Gran Abs Auto 0.02 X10*3/uL (0.00-0.03); Imm Gran Pct Auto 0.3 % (0.0-0.4); Lymphocytes Absolute Auto 2.3 X10*3/uL (1.2-4.9); Lymphocytes Percent Auto 37.8 % (20-40); Mean Corpuscular HGB Conc 34.1 g/dl (31.0-35.0); Mean Corpuscular Hemoglobin 31.7 pg (27.0-33.0); Mean Platelet Volume 9.9 fL (9.4-12.3); Monocytes Absolute Auto 0.4 X10*3/uL (0.1-1.2); Monocytes Percent Auto 6.3 % (2-11); Neutrophils Absolute Auto 2.8 x10*3/uL (2.0-8.3); Neutrophils Percent Auto 45.8 % (45-73); Platelet Count 305 X10*3/uL (160-400); Red Blood Count 4.26 X10*6/uL (4.20-5.50); Red Cell Distribution Width 12.6 % (11.0-16.0); White Blood Count 6.2 X10*3/uL (4.8-10.8)
[2022-10-11 08:00] LABS: Anion Gap 13 (12-20); Blood Urea Nitrogen 17 mg/dL (9-16); Calcium 10.2 mg/dL (8.4-10.2); Carbon Dioxide 27 mmol/L (22-29); Chloride 104 mmol/L (96-108); Estimated Glomerular Filt Rate > 60; Sodium 140 mmol/L (135-145)
== END 2022-10-11 06:11 | disposition home or self-care (01) ==
LOC: HO.LAB 06:10
PROVIDERS: PCP Internal Medicine; Visit Provider Internal Medicine Hypertension Specialist
DX: N17.0 Acute kidney failure with tubular necrosis (principal)
CPT/HCPCS: 36415; 80051; 82310; 82565; 84520; 85025

== ENCOUNTER 2023-01-10 07:52 | Outpatient (AMB) | payer OTHER, SELFPAY ==
--- NOTE | 2023-01-10 08:08 | A.OFFPC_ITS ---
Vital Signs 01/10/23 08:09 Height 5 ft 7 in Weight 134 lb BMI 21.0 BP 114/70 Blood Pressure Location Lt brachial Position Sitting Pulse 80 Pulse Source Pulse Oximeter Pulse Oximetry (%) 100 Oxygen Delivery Method Room Air Intake Visit Reasons: annual PE Intake Note: Pt is here today for PE. Allergies penicillin V Allergy (Unknown, Verified 01/10/23 08:10) rash Medication List - Last Reconciled 01/10/23 by Shannan Bradford MD albuterol sulfate 90 mcg/actuation 2 puffs inhalation Q6H PRN Flovent HFA 110 mcg/actuation (fluticasone propionate) 2 puffs inhalation BID NS levonorgestrel-ethinyl estrad 0.1-20 mg-mcg 1 tab PO DAILY nifedipine ER 30 mg See Protocol PO DAILY Tobacco use date assessed: 01/10/23 Dental Screening Dental Screen Date: 01/10/23 Did you have a dental visit in the last 12 months?: Yes Did you have a dental problem in the last 6 months where you did not have access to dental care?: No Was dental information given to patient?: Patient has dentist HPI annual PE HPI Details Pt presents for PE PFSH Medical History Asthma Surgical History [place] teeth removed Family History Paternal Aunt SLE (systemic lupus erythematosus) Social History Household Members: Family Household Members Other:: Lives with a partner Housing: House Do you presently have visiting nurse or other home services: No Patient Tobacco Use Status: Never used Tobacco e-Cigarette/Vaping Use: Never Used Second Hand Smoke Exposure: No Substance Use Type: Marijuana service: No Current occupational status: employed Cognitive needs: No Hearing needs: No Vision needs: Yes Questionnaire Thrive Questionnaire Date Thrive assessed: 07/05/22 AUDIT C Alcohol Use Questionnaire (AUDIT-C) 1. How often do you have a drink containing alcohol?: 2-4 times a month 2. How many drinks containing alcohol do you have on a typical day when you are drinking?: 1 or 2 3. How often do you have six or more drinks on one occasion?: Never Total Score: 2 PAUL-7 AMB Questionnaire PAUL-7 Date PAUL - 7 assessed: 07/05/22 Source: Developed by Drs. Everett Del Cid, Raissa Teague, Francois Camara and colleagues, with an educational melly from [employer]. Review of Systems Const All systems reviewed & are unremarkable except as noted in HPI and below Reports no additional complaints Eyes Reports no additional complaints ENT Reports no additional complaints Card Reports no additional complaints Resp Reports no additional complaints GI Reports no additional complaints Reports no additional complaints Physical exam (Primary Care) Vital Signs: Last Vital Signs Pulse 80 01/10/23 08:09 BP 114/70 01/10/23 08:09 Pulse Ox 100 01/10/23 08:09 Oxygen Delivery Method Room Air 01/10/23 08:09 BMI result Body Mass Index 21.0 Tobacco/Smoking Status: Tobacco use Status Tobacco use date assessed 01/10/23 01/10/23 08:15 Patient Tobacco Use Status Never used Tobacco 01/10/23 08:15 e-Cigarette/Vaping Use Never Used 01/10/23 08:15 Thrive Assessment: Date of Thrive Assessment Date Thrive assessed 07/05/22 01/10/23 08:15 Const General: no acute distress HENMT Head: Yes normal to inspection Face and sinus: Yes normal facial exam Eyes General: appearance normal, both eyes and all related structures Neck Neck: Yes no lymphadenopathy and Yes supple Resp Effort & Inspection: normal respiratory effort Auscultation: clear to auscultation bilaterally Cardio Rhythm: regular rhythm Heart sounds: S1 normal heart sound present and S2 normal heart sound present GI Inspection: Yes normal to inspection Palpation (GI): Soft to palpation Percussion: Yes normal to percussion Auscultation: normal bowel sounds Assessment and Plan Assessment & Plan (1) HTN (hypertension): Code(s): I10 - Essential (primary) hypertension Plan: increase Nifedipine to 60 mg, low Na diet, exercise , check labs today, f/u 1 month (2) 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 Panel Fast Today I10 - Essential (primary) hypertension, Z00.00 - Encounter for general adult medical examination without abnormal findings TSH reflex Free T4 Today I10 - Essential (primary) hypertension, Z00.00 - Encounter for general adult medical examination without abnormal findings UA w Microscopic Today I10 - Essential (primary) hypertension, Z00.00 - Encounter for general adult medical examination without abnormal findings Medications: New valacyclovir (Valtrex) 1,000 mg PO BID 60 tabs 0RF valacyclovir (Valtrex) 1,000 mg PO BID 14 tabs 4RF Changed From nifedipine ER 30 mg See Protocol PO DAILY 30 tabs 0RF To nifedipine ER 60 mg See Protocol PO DAILY 30 tabs 0RF Coding Level of Care Code Est Pt Prev Care 18-39y(86191) Diagnoses HTN (hypertension) I10 Normal Pap smear Annual physical exam Z00.00
[2023-01-10 08:09] VITALS: BP 114/70; PULSE 80; O2SAT 100; BMI 21.0
== END 2023-01-10 13:39 | disposition home or self-care (01) ==
PROVIDERS: Visit Provider Internal Medicine
DX: I10 Essential (primary) hypertension (principal); Z00.00 Encounter for general adult medical examination without abnormal findings
CPT/HCPCS: 99395

== ENCOUNTER 2023-01-10 08:48 | Outpatient (REF) | payer OTHER, SELFPAY ==
[2023-01-10 11:59] LABS: MANUAL DIFF FLAG NO
[2023-01-10 12:07] LABS: Basophils Absolute Auto 0.1 X10*3/uL (0.0-0.2); Basophils Percent Auto 1.4 % (0-2); Eosinophils Absolute Auto 0.9 X10*3/uL (0.0-0.4); Hematocrit 41.9 % (37.0-47.0); Hemoglobin 13.7 g/dl (12.0-16.0); Imm Gran Abs Auto 0.01 X10*3/uL (0.00-0.03); Imm Gran Pct Auto 0.1 % (0.0-0.4); Lymphocytes Absolute Auto 2.1 X10*3/uL (1.2-4.9); Lymphocytes Percent Auto 29.2 % (20-40); Mean Corpuscular HGB Conc 32.7 g/dl (31.0-35.0); Mean Corpuscular Hemoglobin 29.6 pg (27.0-33.0); Mean Corpuscular Volume 90.5 fL (80.0-98.0); Mean Platelet Volume 10.4 fL (9.4-12.3); Monocytes Absolute Auto 0.4 X10*3/uL (0.1-1.2); Monocytes Percent Auto 5.3 % (2-11); Neutrophils Absolute Auto 3.6 x10*3/uL (2.0-8.3); Platelet Count 286 X10*3/uL (160-400); Red Blood Count 4.63 X10*6/uL (4.20-5.50); Red Cell Distribution Width 13.2 % (11.0-16.0)
[2023-01-10 12:15] LABS: Appearance Urine Clear; Color Urine Yellow; Glucose Urine UA Negative (Negative); Leukocyte Esterase Urine Negative (Negative); Nitrite Urine Negative (Negative); Urine Blood Negative (Negative); Urine Ketones Negative (Negative); Urine Protein Negative (Neg-Trace)
[2023-01-10 12:23] LABS: Bacteria Urine None Seen (None Seen); Hyaline Casts Urine 0-2 /LPF (0-2); WBC Urine 0-5 /HPF (0-5)
[2023-01-10 13:01] LABS: Alanine Aminotransferase 17 U/L (0-31); Albumin Level 4.6 g/dL (3.5-5.0); Alkaline Phosphatase 59 U/L (39-117); Anion Gap 12 (12-20); Aspartate Amino Transferase 19 U/L (5-31); Bilirubin Total 1.9 mg/dL (0.0-1.0); Blood Urea Nitrogen 13 mg/dL (9-16); Calcium 9.8 mg/dL (8.4-10.2); Carbon Dioxide 26 mmol/L (22-29); Chloride 105 mmol/L (96-108); Cholesterol 168 mg/dL (<200); Estimated Glomerular Filt Rate > 60; Glucose Fasting 85 mg/dL (60-99); HDL Cholesterol 61 mg/dL (>40); LDL Cholesterol Calculated 95 mg/dL (<100); Sodium 139 mmol/L (135-145); Total Protein 7.3 g/dL (6.5-8.0); Triglycerides 62 mg/dL (<150)
[2023-01-10 13:02] LABS: TSH reflex Free T4 0.93 uIU/mL (0.32-4.0)
== END 2023-01-10 08:49 | disposition home or self-care (01) ==
LOC: HO.HMGCLDS 08:48
PROVIDERS: PCP Internal Medicine; Visit Provider Internal Medicine
DX: Z00.00 Encounter for general adult medical examination without abnormal findings (principal); J45.909 Unspecified asthma, uncomplicated; I10 Essential (primary) hypertension
CPT/HCPCS: 36415; 80053; 80061; 81001; 84443; 85025

== ENCOUNTER 2023-02-07 14:09 | Outpatient (AMB) | payer OTHER, SELFPAY ==
[2023-02-07 14:17] VITALS: BP 112/66; PULSE 96; O2SAT 99; BMI 20.8
--- NOTE | 2023-02-07 14:17 | MHC.PC.OV ---
Vital Signs 02/07/23 14:17 Height 5 ft 7 in Weight 133 lb BMI 20.8 BP 112/66 Blood Pressure Location Lt brachial Position Sitting Pulse 96 Pulse Source Pulse Oximeter Pulse Oximetry (%) 99 Oxygen Delivery Method Room Air Intake Visit Reasons: one month fu Intake Note: Pt is here today for 1 month follow up visit. Allergies penicillin V Allergy (Unknown, Verified 02/07/23 14:19) rash Tobacco use date assessed: 02/07/23 HPI one month fu HPI Details Patient presents for the follow-up of hypertension and chronic asthma, stable on current medications. [facility] Medical History Asthma Surgical History [place] teeth removed Family History Paternal Aunt SLE (systemic lupus erythematosus) Social History Household Members: Family Household Members Other:: Lives with a partner Housing: House Do you presently have visiting nurse or other home services: No Patient Tobacco Use Status: Never used Tobacco e-Cigarette/Vaping Use: Never Used Second Hand Smoke Exposure: No Substance Use Type: Marijuana service: No Current occupational status: employed Cognitive needs: No Hearing needs: No Vision needs: Yes Questionnaire Thrive Questionnaire Date Thrive assessed: 07/05/22 PAUL-7 AMB Questionnaire PAUL-7 Date PAUL - 7 assessed: 07/05/22 Source: Developed by Drs. Everett Del Cid, Raissa Teague, Francois Camara and colleagues, with an educational melly from [employer]. Review of Systems Const All systems reviewed & are unremarkable except as noted in HPI and below Reports no additional complaints Eyes Reports no additional complaints ENT Reports no additional complaints Card Reports no additional complaints Resp Reports no additional complaints GI Reports no additional complaints Reports no additional complaints Physical exam (Primary Care) Vital Signs: Last Vital Signs Pulse 96 02/07/23 14:17 BP 112/66 02/07/23 14:17 Pulse Ox 99 02/07/23 14:17 Oxygen Delivery Method Room Air 02/07/23 14:17 BMI result Body Mass Index 20.8 Tobacco/Smoking Status: Tobacco use Status Tobacco use date assessed 02/07/23 02/07/23 14:21 Patient Tobacco Use Status Never used Tobacco 02/07/23 14:21 e-Cigarette/Vaping Use Never Used 02/07/23 14:21 Thrive Assessment: Date of Thrive Assessment Date Thrive assessed 07/05/22 02/07/23 14:21 Const General: no acute distress HENMT Mouth: Normal oral and palatal mucosa present Neck Neck: Yes supple Resp Effort & Inspection: normal respiratory effort Auscultation: clear to auscultation bilaterally Cardio Rhythm: regular rhythm Heart sounds: S1 normal heart sound present and S2 normal heart sound present Assessment and Plan Assessment & Plan (1) HTN (hypertension): Code(s): I10 - Essential (primary) hypertension Plan: Continue nifedipine follow-up in 4 months (2) Asthma: Code(s): J45.909 - Unspecified asthma, uncomplicated Plan: Continue Flovent and albuterol p.r.n. Coding Level of Care Code Est Pt Level 4 (95825) Diagnoses HTN (hypertension) I10 Asthma J45.909
== END 2023-02-07 14:50 | disposition home or self-care (01) ==
PROVIDERS: PCP Internal Medicine; Visit Provider Internal Medicine
DX: I10 Essential (primary) hypertension (principal); J45.909 Unspecified asthma, uncomplicated
CPT/HCPCS: 99214

== ENCOUNTER 2023-06-13 13:49 | Outpatient (AMB) | payer OTHER, SELFPAY ==
[2023-06-13 14:02] VITALS: BP 120/74; PULSE 90; O2SAT 99; BMI 21.9
--- NOTE | 2023-06-13 14:02 | MHC.PC.OV ---
Vital Signs 06/13/23 14:02 Height 5 ft 7 in Weight 140 lb BMI 21.9 BP 120/74 Blood Pressure Location Lt brachial Position Sitting Pulse 90 Pulse Source Pulse Oximeter Pulse Oximetry (%) 99 Oxygen Delivery Method Room Air Intake Visit Reasons: 4 month fu Intake Note: Pt is here today for 4 months follow up visit. Allergies penicillin V Allergy (Unknown, Verified 06/13/23 14:03) rash Tobacco use date assessed: 06/13/23 Dental Screening Dental Screen Date: 06/13/23 Did you have a dental visit in the last 12 months?: Yes Did you have a dental problem in the last 6 months where you did not have access to dental care?: No Was dental information given to patient?: Patient has dentist HPI 4 month fu HPI Details Pt presents for f/u HTN and chronic asthma, controlled on meds. Pt reports episodes of palpitations when working out twice a week. She did not chest pain shortness of breath lightheadedness. [facility] Medical History (Updated 06/13/23 @ 15:00 by Shannan Bradford MD) Asthma Surgical History [place] teeth removed Family History Paternal Aunt SLE (systemic lupus erythematosus) Social History Household Members: Family Household Members Other:: Lives with a partner Housing: House Do you presently have visiting nurse or other home services: No Patient Tobacco Use Status: Never used Tobacco e-Cigarette/Vaping Use: Never Used Second Hand Smoke Exposure: No Substance Use Type: Marijuana service: No Current occupational status: employed Cognitive needs: No Hearing needs: No Vision needs: Yes Questionnaire PHQ-9 Over the last 2 weeks, how often have you been bothered by any of the following problems? 1. Little interest or pleasure in doing things: not at all 2. Feeling down, depressed, or hopeless: not at all 3. Trouble falling or staying asleep, or sleeping too much: not at all 4. Feeling tired or having little energy: not at all 5. Poor appetite or overeating: not at all 6. Feeling bad about yourself - or that you are a failure or have let yourself or your family down: not at all 7. Trouble concentrating on things, such as reading the newspaper or watching television: not at all 8. Moving or speaking so slowly that other people could have noticed. Or the opposite - being so fidgety or restless that you have been moving around a lot more than usual: not at all 9. Thoughts that you would be better off or of hurting yourself in some way: not at all Total score: 0 Depression Screening Interpretation: Negative Depression Screening Done: Yes Source: Developed by Drs. Everett Del Cid, Raissa Teague, Francois Camara and colleagues, with an educational melly from [employer]. Thrive Questionnaire Date Thrive assessed: 06/13/23 I am a: Patient What is your living situation today?: I have a steady place to live Within the past 12 months, did the food you bought not last and you didn't have the money to get more?: Never true Within the past 12 months, did you worry whether your food would run out before you got money to buy more?: Never true Do you have trouble paying for medicines?: No Do you have trouble getting transportation to medical appointments?: No Do you have trouble paying your heating and electricity bill?: No Do you have trouble taking care of your child, family member or friend?: No Do you have trouble with day-to-day activities such as bathing, preparing meals, shopping, managing finances, etc.?: No Are you currently unemployed and looking for a job?: No Are you interested in more education?: No Please select the resources that you would like help with: None THRIVE Score: 0 AUDIT C Alcohol Use Questionnaire (AUDIT-C) 1. How often do you have a drink containing alcohol?: Monthly or less 2. How many drinks containing alcohol do you have on a typical day when you are drinking?: 1 or 2 3. How often do you have six or more drinks on one occasion?: Never Total Score: 1 PAUL-7 AMB Questionnaire PAUL-7 Date PAUL - 7 assessed: 06/13/23 Feeling nervous, anxious, or on edge: 0 = Not at all Not being able to stop or control worryin = Not at all Worrying too much about different things: 0 = Not at all Trouble relaxin = Not at all Being so restless that it is hard to sit still: 0 = Not at all Becoming easily annoyed or irritable: 0 = Not at all Feeling afraid as if something awful might happen: 0 = Not at all Total PAUL-7 score (0-4 normal; 5-9 mild; 10-14 moderate; 15-21 severe): 0 Source: Developed by Drs. Everett Del Cid, Raissa Teague, Francois Camara and colleagues, with an educational melly from [employer]. Review of Systems Const All systems reviewed & are unremarkable except as noted in HPI and below Reports no additional complaints Eyes Reports no additional complaints Card Reports no additional complaints Resp Reports no additional complaints GI Reports no additional complaints Physical exam (Primary Care) Vital Signs: Last Vital Signs Pulse 90 06/13/23 14:02 BP 120/74 06/13/23 14:02 Pulse Ox 99 06/13/23 14:02 Oxygen Delivery Method Room Air 06/13/23 14:02 BMI result Body Mass Index 21.9 Tobacco/Smoking Status: Tobacco use Status Tobacco use date assessed 06/13/23 06/13/23 14:07 Patient Tobacco Use Status Never used Tobacco 06/13/23 14:07 e-Cigarette/Vaping Use Never Used 06/13/23 14:07 PHQ-9: PHQ-9 Score PHQ-9: Total score 0 06/13/23 14:07 Depression Screening Interpretation: Negative Thrive Assessment: Date of Thrive Assessment Date Thrive assessed 06/13/23 06/13/23 14:07 Const General: no acute distress HENMT Face and sinus: Yes normal facial exam Neck Neck: Yes no lymphadenopathy Resp Effort & Inspection: normal respiratory effort Auscultation: clear to auscultation bilaterally Cardio Rhythm: regular rhythm Heart sounds: S1 normal heart sound present and S2 normal heart sound present GI Inspection: Yes normal to inspection Palpation (GI): Soft to palpation Percussion: Yes normal to percussion Assessment and Plan Assessment & Plan (1) HTN (hypertension): Code(s): I10 - Essential (primary) hypertension Plan: Continue nifedipine (2) Interstitial nephritis: Comment: 09/07, acute renal failure and hemodialysis, recovered 11/07 Code(s): N12 - Tubulo-interstitial nephritis, not specified as acute or chronic (3) Asthma: Code(s): J45.909 - Unspecified asthma, uncomplicated Plan: Continue Flovent and albuterol p.r.n. (4) Palpitations: Code(s): R00.2 - Palpitations Plan: Obtain 7 day Holter and follow-up Orders: Orders ECG 7 day holter monitor Today Medications: New nifedipine ER 60 mg PO DAILY 90 tabs 0RF Coding Level of Care Code Est Pt Level 4 (51092) Diagnoses HTN (hypertension) I10 Interstitial nephritis N12 Asthma J45.909 Palpitations R00.2
== END 2023-06-13 15:01 | disposition home or self-care (01) ==
PROVIDERS: PCP Internal Medicine; Visit Provider Internal Medicine
DX: I10 Essential (primary) hypertension (principal); N12 Tubulo-interstitial nephritis, not specified as acute or chronic; J45.909 Unspecified asthma, uncomplicated; R00.2 Palpitations
CPT/HCPCS: 99214

== ENCOUNTER → 2023-06-21 12:48 | Outpatient (REF) | payer OTHER, SELFPAY ==
--- NOTE | 2023-06-21 12:51 | HM_ITS ---
Conclusion: 1. Patient was monitored for total period of 7 days 2. Baseline was normal sinus rhythm with average heart of 79 beats per minute 3. No significant pauses or arrhythmias noted 4. Patient marked the counter 5 times with symptoms of shortness of breath or rapid heart rate correlating with sinus rhythm MTDD
== END ==
LOC: HO.CARD 12:48
PROVIDERS: PCP Internal Medicine; Visit Provider Internal Medicine
DX: R00.2 Palpitations (principal)
CPT/HCPCS: 93242

== ENCOUNTER → 2023-06-21 12:51 | Outpatient (BNV) | payer OTHER, SELFPAY | PROVIDERS: PCP Internal Medicine; Visit Provider Internal Medicine Cardiovascular Disease | DX: R00.0 Tachycardia, unspecified (principal) | CPT/HCPCS: 93244 ==

== ENCOUNTER 2023-09-15 13:55 | Outpatient (AMB) | payer OTHER, SELFPAY ==
[2023-09-15 14:00] VITALS: BP 120/72; PULSE 90; O2SAT 100; BMI 21.6
--- NOTE | 2023-09-15 14:00 | A.OFFPC_ITS ---
Vital Signs 09/15/23 14:00 Height 5 ft 7 in Weight 138 lb BMI 21.6 BP 120/72 Blood Pressure Location Lt brachial Position Sitting Pulse 90 Pulse Source Pulse Oximeter Pulse Oximetry (%) 100 Oxygen Delivery Method Room Air Intake Visit Reasons: 3 month follow up Intake Note: Pt is here today for 3 months follow up visit. Allergies penicillin V Allergy (Unknown, Verified 09/15/23 14:01) rash Medication List - Last Reconciled 09/15/23 by Shannan Bradford MD albuterol sulfate 90 mcg/actuation 2 puffs inhalation Q6H PRN drospirenone (contraceptive) (Slynd) 1 tab PO DAILY Flovent HFA 110 mcg/actuation (fluticasone propionate) 2 puffs inhalation BID NS nifedipine ER 60 mg PO DAILY valacyclovir (Valtrex) 1,000 mg PO BID Tobacco use date assessed: 06/13/23 Dental Screening Dental Screen Date: 06/13/23 HPI 3 month follow up HPI Details Patient presents for the follow-up on hypertension and chronic asthma, stable on current medications. Patient complains of recurrent pruritic rash on her abdomen and chest. 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 [facility] Medical History (Updated 09/15/23 @ 14:39 by Shannan Bradford MD) Asthma Surgical History [place] teeth removed Family History Paternal Aunt SLE (systemic lupus erythematosus) Social History Household Members: Family Household Members Other:: Lives with a partner Housing: House Do you presently have visiting nurse or other home services: No Patient Tobacco Use Status: Never used Tobacco e-Cigarette/Vaping Use: Never Used Second Hand Smoke Exposure: No Substance Use Type: Marijuana service: No Current occupational status: employed Cognitive needs: No Hearing needs: No Vision needs: Yes Questionnaire Thrive Questionnaire Date Thrive assessed: 06/13/23 PAUL-7 AMB Questionnaire PAUL-7 Date PAUL - 7 assessed: 06/13/23 Source: Developed by Drs. Everett Del Cid, Raissa Teague, Francois Camara and colleagues, with an educational melly from [employer]. Review of Systems Const All systems reviewed & are unremarkable except as noted in HPI and below Eyes Reports no additional complaints ENT Reports no additional complaints Card Reports no additional complaints Resp Reports no additional complaints GI Reports no additional complaints Reports no additional complaints Physical exam (Primary Care) Vital Signs: Last Vital Signs Pulse 90 09/15/23 14:00 BP 120/72 09/15/23 14:00 Pulse Ox 100 09/15/23 14:00 Oxygen Delivery Method Room Air 09/15/23 14:00 BMI result Body Mass Index 21.6 Tobacco/Smoking Status: Tobacco use Status Tobacco use date assessed 06/13/23 09/15/23 14:04 Patient Tobacco Use Status Never used Tobacco 09/15/23 14:04 e-Cigarette/Vaping Use Never Used 09/15/23 14:04 Thrive Assessment: Date of Thrive Assessment Date Thrive assessed 06/13/23 09/15/23 14:04 Const General: no acute distress HENMT Ears: hearing grossly normal bilaterally Face and sinus: Yes normal facial exam Throat: Yes posterior oropharynx normal Neck Neck: Yes supple Resp Effort & Inspection: normal respiratory effort Auscultation: clear to auscultation bilaterally Cardio Rhythm: regular rhythm Heart sounds: S1 normal heart sound present and S2 normal heart sound present GI Inspection: Yes normal to inspection Palpation (GI): Soft to palpation Percussion: Yes normal to percussion Skin Other: Erythematous raised papular rash on the lower chest and the abdomen Assessment and Plan Assessment & Plan (1) Palpitations: Comment: Negative Holter Code(s): R00.2 - Palpitations (2) HTN (hypertension): Code(s): I10 - Essential (primary) hypertension Plan: Continue nifedipine (3) Anemia: Code(s): D64.9 - Anemia, unspecified Plan: Monitor CBC (4) Annual physical exam: Code(s): Z00.00 - Encounter for general adult medical examination without abnormal findings (5) Lichen planus: Code(s): L43.9 - Lichen planus, unspecified Plan: Referred to dermatology Orders: Orders TSH reflex Free T4 4 Months D64.9 - Anemia, unspecified, I10 - Essential (primary) hypertension, R00.2 - Palpitations, Z00.00 - Encounter for general adult medical examination without abnormal findings UA w Microscopic 4 Months D64.9 - Anemia, unspecified, I10 - Essential (primary) hypertension, R00.2 - Palpitations, Z00.00 - Encounter for general adult medical examination without abnormal findings Comprehensive [place]. Panel Fast 4 Months D64.9 - Anemia, unspecified, I10 - Essential (primary) hypertension, R00.2 - Palpitations, Z00.00 - Encounter for general adult medical examination without abnormal findings Complete Blood Count Auto Diff 4 Months D64.9 - Anemia, unspecified, I10 - Essential (primary) hypertension, R00.2 - Palpitations, Z00.00 - Encounter for general adult medical examination without abnormal findings Lipid Panel 4 Months D64.9 - Anemia, unspecified, I10 - Essential (primary) hypertension, R00.2 - Palpitations, Z00.00 - Encounter for general adult medical examination without abnormal findings Referrals Dermatology Referral L43.9 - Lichen planus, unspecified Medications: Changed From Flovent HFA 110 mcg/actuation (fluticasone propionate) 2 puffs inhalation BID 36 grams 3RF NS To fluticasone propionate 110 mcg/actuation 2 puffs inhalation BID 36 grams 3RF NS From drospirenone (contraceptive) (Slynd) 1 tab PO DAILY To Slynd (drospirenone (contraceptive)) 1 tab PO DAILY 84 tabs 3RF NS Refilled nifedipine ER 60 mg PO DAILY 90 tabs 3RF albuterol sulfate 90 mcg/actuation 2 puffs inhalation Q6H PRN 8.5 grams 6RF shortness of breath or wheezing Discontinued nifedipine ER Discontinued Reason: Doctor's Order 60 mg PO DAILY 90 tabs 1RF Coding Level of Care Code Est Pt Level 4 (37120) Diagnoses Palpitations R00.2 HTN (hypertension) I10 Anemia D64.9 Annual physical exam Z00.00 Lichen planus L43.9
== END 2023-09-15 14:40 | disposition home or self-care (01) ==
PROVIDERS: PCP Internal Medicine; Visit Provider Internal Medicine
DX: R00.2 Palpitations (principal); I10 Essential (primary) hypertension; D64.9 Anemia, unspecified; Z00.00 Encounter for general adult medical examination without abnormal findings; L43.9 Lichen planus, unspecified
CPT/HCPCS: 99214

== ENCOUNTER 2024-01-23 12:51 | Outpatient (AMB) | payer OTHER, SELFPAY ==
[2024-01-23 13:12] VITALS: BP 106/84; PULSE 75; O2SAT 99; BMI 22.2
--- NOTE | 2024-01-23 13:12 | A.OFFPC_ITS ---
Vital Signs 01/23/24 13:12 Height 5 ft 7 in Weight 142 lb BMI 22.2 BP 106/84 Blood Pressure Location Lt brachial Position Sitting Pulse 75 Pulse Source Pulse Oximeter Pulse Oximetry (%) 99 Oxygen Delivery Method Room Air Intake Visit Reasons: PE Intake Note: Pt is here today for PE. Allergies penicillin V Allergy (Unknown, Verified 01/23/24 13:14) rash Medication List - Last Reconciled 01/23/24 by Shannan Bradford MD albuterol sulfate 90 mcg/actuation 2 puffs inhalation Q6H PRN cetirizine (Zyrtec) 10 mg PO DAILY nifedipine ER 60 mg PO DAILY Qvar RediHaler 40 mcg/actuation (beclomethasone dipropionate) 1 inh inhalation BID NS Slynd (drospirenone (contraceptive)) 1 tab PO DAILY NS valacyclovir (Valtrex) 1,000 mg PO BID Tobacco use date assessed: 01/23/24 Dental Screening Dental Screen Date: 06/13/23 HPI PE HPI Details Pt presents for PE. [facility] Medical History (Updated 09/15/23 @ 14:39 by Shannan Bradford MD) Asthma Surgical History [place] teeth removed Family History Paternal Aunt SLE (systemic lupus erythematosus) Social History Household Members: Family Household Members Other:: Lives with a partner Housing: House Do you presently have visiting nurse or other home services: No Patient Tobacco Use Status: Never used Tobacco e-Cigarette/Vaping Use: Never Used Second Hand Smoke Exposure: No Substance Use Type: Marijuana service: No Current occupational status: employed Cognitive needs: No Hearing needs: No Vision needs: Yes Questionnaire PHQ-9 Over the last 2 weeks, how often have you been bothered by any of the following problems? 1. Little interest or pleasure in doing things: not at all 2. Feeling down, depressed, or hopeless: not at all 3. Trouble falling or staying asleep, or sleeping too much: not at all 4. Feeling tired or having little energy: several days 5. Poor appetite or overeating: not at all 6. Feeling bad about yourself - or that you are a failure or have let yourself or your family down: not at all 7. Trouble concentrating on things, such as reading the newspaper or watching television: not at all 8. Moving or speaking so slowly that other people could have noticed. Or the opposite - being so fidgety or restless that you have been moving around a lot more than usual: not at all 9. Thoughts that you would be better off or of hurting yourself in some way: not at all Total score: 1 Depression Screening Interpretation: Negative Depression Screening Done: Yes 42769 - PHQ-9 Billing: Yes Source: Developed by Drs. Everett Del Cid, Raissa Teague, Francois Camara and colleagues, with an educational melly from [employer]. Thrive Questionnaire Date Thrive assessed: 01/23/24 I am a: Patient What is your living situation today?: I have a steady place to live Within the past 12 months, did the food you bought not last and you didn't have the money to get more?: Never true Within the past 12 months, did you worry whether your food would run out before you got money to buy more?: Never true Do you have trouble paying for medicines?: No Do you have trouble getting transportation to medical appointments?: No Do you have trouble paying your heating and electricity bill?: No Do you have trouble taking care of your child, family member or friend?: No Do you have trouble with day-to-day activities such as bathing, preparing meals, shopping, managing finances, etc.?: No Are you currently unemployed and looking for a job?: No Are you interested in more education?: No Please select the resources that you would like help with: None Currently or been in a relationship where the following occur: No concerns reported THRIVE Score: 0 AUDIT C Alcohol Use Questionnaire (AUDIT-C) 1. How often do you have a drink containing alcohol?: 2-4 times a month 2. How many drinks containing alcohol do you have on a typical day when you are drinking?: 1 or 2 3. How often do you have six or more drinks on one occasion?: Less than monthly Total Score: 3 PAUL-7 AMB Questionnaire PAUL-7 Date PAUL - 7 assessed: 01/23/24 Feeling nervous, anxious, or on edge: 1 = Several days Not being able to stop or control worryin = Not at all Worrying too much about different things: 1 = Several days Trouble relaxin = Not at all Being so restless that it is hard to sit still: 0 = Not at all Becoming easily annoyed or irritable: 1 = Several days Feeling afraid as if something awful might happen: 0 = Not at all Total PAUL-7 score (0-4 normal; 5-9 mild; 10-14 moderate; 15-21 severe): 3 Source: Developed by Drs. Everett Del Cid, Raissa Teague, Francois Camara and colleagues, with an educational melly from [employer]. PAUL-7 Assessment Billing PAUL-7 Assessment Tool: PAUL-7 Assessment 96593 Review of Systems Const All systems reviewed & are unremarkable except as noted in HPI and below Eyes Reports no additional complaints ENT Reports no additional complaints Card Reports no additional complaints Resp Reports no additional complaints GI Reports no additional complaints Reports no additional complaints Physical exam (Primary Care) Vital Signs: Last Vital Signs Pulse 75 01/23/24 13:12 BP 106/84 01/23/24 13:12 Pulse Ox 99 01/23/24 13:12 Oxygen Delivery Method Room Air 01/23/24 13:12 BMI result Body Mass Index 22.2 Tobacco/Smoking Status: Tobacco use Status Tobacco use date assessed 01/23/24 01/23/24 13:17 Patient Tobacco Use Status Never used Tobacco 01/23/24 13:17 e-Cigarette/Vaping Use Never Used 01/23/24 13:17 PHQ-9: PHQ-9 Score PHQ-9: Total score 1 01/23/24 13:17 Depression Screening Interpretation: Negative Thrive Assessment: Date of Thrive Assessment Date Thrive assessed 01/23/24 01/23/24 13:17 Currently or been in a relationship where the following occur: No concerns reported Const General: no acute distress HENMT Head: Yes normal to inspection Ears: hearing grossly normal bilaterally Face and sinus: Yes normal facial exam Throat: Yes posterior oropharynx normal Eyes General: appearance normal, both eyes and all related structures Neck Neck: Yes supple Resp Effort & Inspection: normal respiratory effort Auscultation: clear to auscultation bilaterally Cardio Rhythm: regular rhythm Heart sounds: S1 normal heart sound present and S2 normal heart sound present GI Inspection: Yes normal to inspection Palpation (GI): Soft to palpation Percussion: Yes normal to percussion Auscultation: normal bowel sounds Coding Level of Care Code Est Pt Prev Care 18-39y(26759) Diagnoses HTN (hypertension) I10 Anemia D64.9 Annual physical exam Z00.00 Asthma J45.909 Additional Codes PAUL-7 Assessment Billing - PAUL-7 Assessment Tool: PAUL-7 Assessment 76478 ([id number]) Assessment & Plan Assessment & Plan (1) HTN (hypertension): Code(s): I10 - Essential (primary) hypertension Category: Medical Plan: Continue nifedipine (2) Anemia: Code(s): D64.9 - Anemia, unspecified Category: Medical Plan: Check CBC and iron count (3) Annual physical exam: Code(s): Z00.00 - Encounter for general adult medical examination without abnormal findings Category: Medical Plan: Well-balanced diet regular physical activity discussed with the patient. She will return for fasting blood work (4) Asthma: Code(s): J45.909 - Unspecified asthma, uncomplicated Category: Medical Plan: Continue QVAR Orders: Orders Complete Blood Count Auto Diff Today D64.9 - Anemia, unspecified, I10 - Essential (primary) hypertension, J45.909 - Unspecified asthma, uncomplicated, Z00.00 - Encounter for general adult medical examination without abnormal findings Lipid Panel Today D64.9 - Anemia, unspecified, I10 - Essential (primary) hypertension, J45.909 - Unspecified asthma, uncomplicated, Z00.00 - Encounter for general adult medical examination without abnormal findings TSH reflex Free T4 Today D64.9 - Anemia, unspecified, I10 - Essential (primary) hypertension, J45.909 - Unspecified asthma, uncomplicated, Z00.00 - Encounter for general adult medical examination without abnormal findings UA w Microscopic Today D64.9 - Anemia, unspecified, I10 - Essential (primary) hypertension, J45.909 - Unspecified asthma, uncomplicated, Z00.00 - Encounter for general adult medical examination without abnormal findings Comprehensive [place]. Panel Fast Today D64.9 - Anemia, unspecified, I10 - Essential (primary) hypertension, J45.909 - Unspecified asthma, uncomplicated, Z00.00 - Encounter for general adult medical examination without abnormal findings Medications: Refilled Slynd (drospirenone (contraceptive)) 1 tab PO DAILY 84 tabs 3RF NS valacyclovir (Valtrex) 1,000 mg PO BID 180 tabs 3RF nifedipine ER 60 mg PO DAILY 90 tabs 3RF
== END 2024-01-23 13:41 | disposition home or self-care (01) ==
PROVIDERS: PCP Internal Medicine; Visit Provider Internal Medicine
DX: I10 Essential (primary) hypertension (principal); D64.9 Anemia, unspecified; Z00.00 Encounter for general adult medical examination without abnormal findings; J45.909 Unspecified asthma, uncomplicated

== ENCOUNTER → 2024-01-23 12:51 | Outpatient (BNVA) | payer OTHER, SELFPAY | PROVIDERS: PCP Internal Medicine; Visit Provider Internal Medicine | DX: Z00.00 Encounter for general adult medical examination without abnormal findings (principal); I10 Essential (primary) hypertension; D64.9 Anemia, unspecified; J45.909 Unspecified asthma, uncomplicated; Z79.899 Other long term (current) drug therapy | CPT/HCPCS: 96127 ==

== ENCOUNTER 2024-03-02 08:24 | Outpatient (REF) | payer OTHER, SELFPAY ==
[2024-03-02 10:07] LABS: MANUAL DIFF FLAG NO
[2024-03-02 10:11] LABS: Basophils Absolute Auto 0.1 X10*3/uL (0.0-0.2); Basophils Percent Auto 1.1 % (0-2); Eosinophils Absolute Auto 0.6 X10*3/uL (0.0-0.4); Eosinophils Percent Auto 9.6 % (0-4); Hematocrit 42.4 % (37.0-47.0); Hemoglobin 14.4 g/dl (12.0-16.0); Imm Gran Abs Auto 0.02 X10*3/uL (0.00-0.03); Imm Gran Pct Auto 0.3 % (0.0-0.4); Lymphocytes Absolute Auto 2.2 X10*3/uL (1.2-4.9); Lymphocytes Percent Auto 34.7 % (20-40); Mean Corpuscular Hemoglobin 30.3 pg (27.0-33.0); Mean Corpuscular Volume 89.1 fL (80.0-98.0); Mean Platelet Volume 10.2 fL (9.4-12.3); Monocytes Absolute Auto 0.5 X10*3/uL (0.1-1.2); Monocytes Percent Auto 7.7 % (2-11); Neutrophils Percent Auto 46.6 % (45-73); Platelet Count 286 X10*3/uL (160-400); Red Blood Count 4.76 X10*6/uL (4.20-5.50); Red Cell Distribution Width 11.9 % (11.0-16.0); White Blood Count 6.5 X10*3/uL (4.8-10.8)
[2024-03-02 10:15] LABS: Appearance Urine Clear; Color Urine Yellow; Glucose Urine UA Negative (Negative); Leukocyte Esterase Urine Negative (Negative); Nitrite Urine Negative (Negative); PH 5.5 (5.0-9.0); Urine Blood Negative (Negative); Urine Ketones Negative (Negative); Urine Protein Negative (Neg-Trace)
[2024-03-02 10:22] LABS: Bacteria Urine None Seen (None Seen); Hyaline Casts Urine 0-2 /LPF (0-2); RBC Urine 0-2 /HPF (0-2); Squamous Epithelial Cell Urine 0-2 /HPF (0-2); WBC Urine 0-5 /HPF (0-5)
[2024-03-02 10:54] LABS: Alanine Aminotransferase 24 U/L (0-31); Albumin Level 4.5 g/dL (3.5-5.0); Alkaline Phosphatase 58 U/L (39-117); Anion Gap 9 (12-20); Aspartate Amino Transferase 23 U/L (5-31); Bilirubin Total 0.9 mg/dL (0.0-1.0); Blood Urea Nitrogen 16 mg/dL (9-16); Calcium 9.4 mg/dL (8.4-10.2); Carbon Dioxide 27 mmol/L (22-29); Chloride 104 mmol/L (96-108); Cholesterol 174 mg/dL (<200); Estimated Glomerular Filt Rate > 60; Glucose Fasting 92 mg/dL (60-99); HDL Cholesterol 60 mg/dL (>40); LDL Cholesterol Calculated 101 mg/dL (<100); Potassium 3.7 mmol/L (3.3-5.1); Sodium 136 mmol/L (135-145); TSH reflex Free T4 1.58 uIU/mL (0.32-4.0); Total Protein 7.2 g/dL (6.5-8.0); Triglycerides 67 mg/dL (<150)
== END 2024-03-02 08:25 | disposition home or self-care (01) ==
LOC: HO.HMGCLDS 08:24
PROVIDERS: PCP Internal Medicine; Visit Provider Internal Medicine
DX: Z00.00 Encounter for general adult medical examination without abnormal findings (principal); J45.909 Unspecified asthma, uncomplicated; D64.9 Anemia, unspecified; I10 Essential (primary) hypertension
CPT/HCPCS: 36415; 80053; 80061; 81001; 84443; 85025

== ENCOUNTER 2025-03-29 12:41 | Outpatient (AMB) | payer OTHER, SELFPAY ==
[2025-03-29 12:52] VITALS: BP 118/78; PULSE 77; RESP 16; TEMP 37.1; O2SAT 99; BMI 22.2
--- NOTE | 2025-03-29 12:52 | MHC.PC.OV ---
Vital Signs 03/29/25 12:52 Height 5 ft 7 in Weight 142 lb BMI 22.2 BP 118/78 Blood Pressure Location Lt brachial Position Sitting Respiration 16 Pulse 77 Pulse Source Pulse Oximeter Temp 98.7 F Temp Source Oral Pulse Oximetry (%) 99 Oxygen Delivery Method Room Air Intake Visit Reasons: PE Intake Note: Pt is here today for PE. Allergies penicillin V Allergy (Unknown, Verified 03/29/25 12:53) rash Medication List - Last Reconciled 03/29/25 by Shannan Bradford MD albuterol sulfate 90 mcg/actuation 2 puffs inhalation Q6H PRN cetirizine (Zyrtec) 10 mg PO DAILY nifedipine ER 60 mg PO DAILY Qvar RediHaler 40 mcg/actuation (beclomethasone dipropionate) 1 inh inhalation BID NS Slynd (drospirenone (contraceptive)) 1 tab PO DAILY NS valacyclovir (Valtrex) 1,000 mg PO BID Tobacco use date assessed: 03/29/25 Dental Screening Dental Screen Date: 03/29/25 Did you have a dental visit in the last 12 months?: Yes Did you have a dental problem in the last 6 months where you did not have access to dental care?: No Was dental information given to patient?: Patient has dentist HPI PE HPI Details Pt presents for PE. Patient is going for [employer] in [place] with her boyfriend and his parents [facility] Medical History (Updated 03/29/25 @ 13:36 by Shannan Bradford MD) Normal pelvic exam Annual physical exam Anemia Palpitations HTN (hypertension) Asthma Surgical History [place] teeth removed Family History Paternal Aunt SLE (systemic lupus erythematosus) Social History Household Members: Family Household Members Other:: Lives with a partner Housing: House Do you presently have visiting nurse or other home services: No Patient Tobacco Use Status: Never used Tobacco e-Cigarette/Vaping Use: Never Used Second Hand Smoke Exposure: No Substance Use Type: Marijuana service: No Current occupational status: employed Cognitive needs: No Hearing needs: No Vision needs: Yes Questionnaire PHQ-9 Over the last 2 weeks, how often have you been bothered by any of the following problems? 1. Little interest or pleasure in doing things: not at all 2. Feeling down, depressed, or hopeless: not at all 3. Trouble falling or staying asleep, or sleeping too much: not at all 4. Feeling tired or having little energy: not at all 5. Poor appetite or overeating: not at all 6. Feeling bad about yourself - or that you are a failure or have let yourself or your family down: not at all 7. Trouble concentrating on things, such as reading the newspaper or watching television: not at all 8. Moving or speaking so slowly that other people could have noticed. Or the opposite - being so fidgety or restless that you have been moving around a lot more than usual: not at all 9. Thoughts that you would be better off or of hurting yourself in some way: not at all Total score: 0 Depression Screening Interpretation: Negative Depression Screening Done: Yes 85842 - PHQ-9 Billing: Yes Source: Developed by Drs. Everett Del Cid, Raissa Teague, Francois Camara and colleagues, with an educational melly from [employer]. Thrive Questionnaire Date Thrive assessed: 03/29/25 I am a: Patient What is your living situation today?: I have a steady place to live Within the past 12 months, did the food you bought not last and you didn't have the money to get more?: Never true Within the past 12 months, did you worry whether your food would run out before you got money to buy more?: Never true Do you have trouble paying for medicines?: No Do you have trouble getting transportation to medical appointments?: No Do you have trouble paying your heating and electricity bill?: No Do you have trouble taking care of your child, family member or friend?: No Do you have trouble with day-to-day activities such as bathing, preparing meals, shopping, managing finances, etc.?: No Are you currently unemployed and looking for a job?: No Are you interested in more education?: I choose not to answer this question Please select the resources that you would like help with: None Currently or been in a relationship where the following occur: No concerns reported THRIVE Score: 0 AUDIT C Alcohol Use Questionnaire (AUDIT-C) 1. How often do you have a drink containing alcohol?: 2-4 times a month 2. How many drinks containing alcohol do you have on a typical day when you are drinking?: 1 or 2 3. How often do you have six or more drinks on one occasion?: Less than monthly Total Score: 3 PAUL-7 AMB Questionnaire PAUL-7 Date PAUL - 7 assessed: 03/29/25 Feeling nervous, anxious, or on edge: 2 = More than half the days Not being able to stop or control worryin = Several days Worrying too much about different things: 1 = Several days Trouble relaxin = Several days Being so restless that it is hard to sit still: 0 = Not at all Becoming easily annoyed or irritable: 0 = Not at all Feeling afraid as if something awful might happen: 0 = Not at all Total PAUL-7 score (0-4 normal; 5-9 mild; 10-14 moderate; 15-21 severe): 5 Source: Developed by Drs. Everett Del Cid, Raissa Teague, Francois Camara and colleagues, with an educational melly from [employer]. PAUL-7 Assessment Billing PAUL-7 Assessment Tool: PAUL-7 Assessment 59665 Review of Systems Const All systems reviewed & are unremarkable except as noted in HPI and below Reports no additional complaints Eyes Reports no additional complaints ENT Reports no additional complaints Card Reports no additional complaints Resp Reports no additional complaints GI Reports no additional complaints Reports no additional complaints Physical exam (Primary Care) Vital Signs: Last Vital Signs Temp 98.7 F 03/29/25 12:52 Pulse 77 03/29/25 12:52 Resp 16 03/29/25 12:52 BP 118/78 03/29/25 12:52 Pulse Ox 99 03/29/25 12:52 Oxygen Delivery Method Room Air 03/29/25 12:52 BMI result Body Mass Index 22.2 Tobacco/Smoking Status: Tobacco use Status Tobacco use date assessed 03/29/25 03/29/25 12:56 Patient Tobacco Use Status Never used Tobacco 03/29/25 12:56 e-Cigarette/Vaping Use Never Used 03/29/25 12:52 PHQ-9: PHQ-9 Score PHQ-9: Total score 0 03/29/25 13:37 Depression Screening Interpretation: Negative Thrive Assessment: Date of Thrive Assessment Date Thrive assessed 03/29/25 03/29/25 12:56 Currently or been in a relationship where the following occur: No concerns reported Const General: no acute distress HENMT Head: Yes normal to inspection Face and sinus: Yes normal facial exam Mouth: Normal oral and palatal mucosa present Throat: Yes posterior oropharynx normal Eyes General: appearance normal, both eyes and all related structures Neck Neck: Yes no lymphadenopathy and Yes supple Resp Effort & Inspection: normal respiratory effort Auscultation: clear to auscultation bilaterally Cardio Rhythm: regular rhythm Heart sounds: S1 normal heart sound present and S2 normal heart sound present GI Inspection: Yes normal to inspection Palpation (GI): Soft to palpation Percussion: Yes normal to percussion Auscultation: normal bowel sounds Coding Level of Care Code Est Pt Prev Care 18-39y(82076) Diagnoses HTN (hypertension) I10 Annual physical exam Z00. Asthma J45.909 Additional Codes PAUL-7 Assessment Billing - PAUL-7 Assessment Tool: PAUL-7 Assessment 04946 ([id number]) PHQ-9 - 48708 - PHQ-9 Billing: Yes ([id number]) Assessment & Plan Assessment & Plan (1) HTN (hypertension): Code(s): I10 - Essential (primary) hypertension Category: Medical Plan: Continue nifedipine (2) Annual physical exam: Code(s): Z00.00 - Encounter for general adult medical examination without abnormal findings Category: Medical Plan: Well-balanced diet regular physical activity discussed with the patient. (3) Asthma: Code(s): J45.909 - Unspecified asthma, uncomplicated Category: Medical Plan: Continue Qvar and albuterol as needed Orders: Orders Comprehensive [place]. Panel Fast 1 Year I10 - Essential (primary) hypertension, Z00.00 - Encounter for general adult medical examination without abnormal findings Complete Blood Count Auto Diff 1 Year I10 - Essential (primary) hypertension, Z00.00 - Encounter for general adult medical examination without abnormal findings Vitamin D 25-OH Total Today I10 - Essential (primary) hypertension, Z00.00 - Encounter for general adult medical examination without abnormal findings Lipid Panel 1 Year I10 - Essential (primary) hypertension, Z00.00 - Encounter for general adult medical examination without abnormal findings UA w Microscopic 1 Year I10 - Essential (primary) hypertension, Z00.00 - Encounter for general adult medical examination without abnormal findings Medications: Refilled Slynd (drospirenone (contraceptive)) 1 tab PO DAILY 84 tabs 3RF NS
--- OUTSIDE RECORDS SUMMARY | 2025-03-29 18:09 | XMS_ITS | Encounter Summary ---
Author Organization [facility] Address [address] [place] [address] Phone Care Team Providers Care Fruit Grower Name Role Phone Marleen Vega MD Primary Care Provider Unava ilable Encounter Details Date Type Department Care Team (Late st Contact Info) Description 12/08/2011 Documentation EM Family Medicine [address] [place], [place] [id number] Family Medicine, Physician [address] [place] [address] Social History Tobacco Use Types Packs/Day Years Used Date Smoking Tobacco: Never Assessed Comments Unknown Sex and Gender Information Value Date Recorded Sex Assigned at Not on file Legal Sex Female 4:58 PM EDT Gender Identity Not on file Sexual Orientation Not on file documented as of this encounter Plan of Treatment Not on file documented as of this encounter Visit Diagnoses Not on filedocumented in this encounter Care Teams Fruit Grower Relationship Specialty Start Date End Date Marleen Vega MD PCP - General 11/26/16 documented as of this encounter
--- OUTSIDE RECORDS SUMMARY | 2025-03-29 18:09 | XMS_ITS | Clinical Summary ---
Author Organization [facility] Address [address] [place], [place] [id number] Care Team Providers Care Linoleum Layer Helper Name Role Phone Pcp, No Primary Care Provider Unavailabl e Allergies Active Allergy Reactions Criticality Noted Date Comments Penicillins Rash/Dermatitis Low 05/30/2021 Medications Slynd 4 MG Tab Take 1 tablet by mouth daily. 10/29/2024 Active NIFEdipine ER (ADALAT CC) 60 MG 24 hr tablet Take 60 mg by mouth daily. 12/30/2024 Active albuterol (PROAIR RESPICLICK) 108 (90 Base) MCG/ACT inhaler Inhale 1 puff 4 times daily (every 6 hours) as needed for wheezing. Active fluticasone (FloVENT HFA) 44 mcg/puff inhaler Inhale 1 puff 2 (two) times a day. Active methocarbamol (ROBAXIN) 750 MG tabletIndication s:Neck strain, initial encounter Take 1 tablet (750 mg total) by mouth 4 (four) times a day as needed for muscle spasms. 30 tablet 01/28/2025 Active Active Problems Problem Noted Date Diagnosed Date BARNEY (acute kidney injury) 01/28/2025 Encounters Date Type Department Care Team Description 01/28/2025 10:10 AM EDT Office Visit [facility] [address] [address] Taye Agudelo MD [place], [place], APRN Neck strain, initial encounter (Primary Dx) from Last 3 Months Immunizations Immunization Administration Dates Next Due Tdap 05/30/2021 Social History Tobacco Use Types Packs/Day Years Used Date Smoking Tobacco: Never Smokeless Tobacco: Never Tobacco Cessation:Counseling Given: Not Answered Alcohol Use Standard Drinks/Week Comments Yes 0 (1 standard drink = 0.6 oz pur e alcohol) soc Comments Unknown Sex and Gender Information Value Date Recorded Sex Assigned at Not on file Legal Sex Female 1:06 PM EST Gender Identity Not on file Sexual Orientation Not on file Last Filed Vital Signs Vital Sign Reading Time Taken Comments Blood Pressure 130/87 01/28/2025 10:30 AM EDT Pulse 93 01/28/2025 10:30 AM EDT Temperature 36.8 C (98.3 F) 01/28/2025 10:30 AM EDT Respiratory Rate 16 01/28/2025 10:30 AM EDT Oxygen Saturation 98% 01/28/2025 10:30 AM EDT Inhaled Oxygen Concentration - - Weight 63.5 kg (140 lb) 01/28/2025 10:30 AM EDT Height 167.6 cm (5' 6 ) 05/30/2021 1:16 PM EST Body Mass Index 22.6 05/30/2021 1:16 PM EST Plan of Treatment Health Maintenance Due Date Last Done Comments Hepatitis C Virus Screening 1994 HIV Screening 2007 Hepatitis B Vaccines (1 of 3 - 19+ 3-dose series) 2013 Pap Smear (Ages 21-65) 2015 Influenza Vaccine 11/16/2024 12/08/2012, 12/26/2009 COVID-19 Vaccine ( - 2024-2 6 season) 2024 DTaP/Tdap/Td Vaccines (2 - T d or Tdap) 05/30/2031 05/30/2021 HPV Vaccines (No Doses Required) Completed Pneumococcal Vaccine: Pediatric (0-5 Years) and At-Risk Patients (6 to 49 Years) Aged Out No longer eligible b ased on patient's age to complete this topic Insurance [employer] PPO Care Teams Linoleum Layer Helper Relationship Specialty Start Date End Date Pcp, No PCP - General General Medicine 01/28/25
--- OUTSIDE RECORDS SUMMARY | 2025-03-29 18:09 | XMS_ITS | Encounter Summary ---
Author Organization [facility] Address [address] [place] [address] Phone Care Team Providers Care Pet Caretaker Name Role Phone Marleen Vega MD Primary Care Provider Unava ilable Encounter Details Date Type Department Care Team (Late st Contact Info) Description 12/11/2012 Documentation EM Family Medicine [address] [place], [place] [phone] Family Medicine, Physician [address] [place] [address] Social History Tobacco Use Types Packs/Day Years [...] on filedocumented in this encounter Care Teams Pet Caretaker Relationship Specialty Start Date End Date Marleen Vega MD PCP - General 11/26/16 documented as of this encounter
--- OUTSIDE RECORDS SUMMARY | 2025-03-29 18:09 | XMS_ITS | Encounter Summary ---
Author Organization [facility] Address [address] [place] [address] Phone Care Team Providers Care Screw Machine Tender Name Role Phone Marleen Vega MD Primary Care Provider Unava ilable Encounter Details Date Type Department Care Team (Late st Contact Info) Description 12/04/2010 Documentation EM Family Medicine [address] [place], [place] [phone] Family Medicine, Physician [address] [place] [address] Social History Tobacco Use Types Packs/Day Years [...] on filedocumented in this encounter Care Teams Screw Machine Tender Relationship Specialty Start Date End Date Marleen Vega MD PCP - General 11/26/16 documented as of this encounter
--- OUTSIDE RECORDS SUMMARY | 2025-03-29 18:09 | XMS_ITS | Encounter Summary ---
Author Organization [facility] Address [address] [place] [address] Phone Care Team Providers Care Program Support Clerk Name Role Phone Marleen Vega MD Primary Care Provider Unava ilable Encounter Details Date Type Department Care Team (Late st Contact Info) Description 12/29/2009 Documentation EM Family Medicine [address] [place], [place] [phone] Family Medicine, Physician [address] [place] [address] Social History Tobacco Use Types Packs/Day Years [...] on filedocumented in this encounter Care Teams Program Support Clerk Relationship Specialty Start Date End Date Marleen Vega MD PCP - General 11/26/16 documented as of this encounter
--- OUTSIDE RECORDS SUMMARY | 2025-03-29 18:09 | XMS_ITS | Encounter Summary ---
Author Organization [facility] Address [address] [place] [address] Phone Care Team Providers Care Tipple Repairer Name Role Phone Marleen Vega MD Primary Care Provider Unava ilable Encounter Details Date Type Department Care Team (Late st Contact Info) Description 12/29/2009 Documentation EM Family Medicine [address] [place], [place] [phone] Family Medicine, Physician [address] [place] [address] Social History Tobacco Use Types Packs/Day Years [...] on filedocumented in this encounter Care Teams Tipple Repairer Relationship Specialty Start Date End Date Marleen Vega MD PCP - General 11/26/16 documented as of this encounter
--- OUTSIDE RECORDS SUMMARY | 2025-03-29 18:09 | XMS_ITS | Encounter Summary ---
Author Organization [facility] Address [address] [place] [address] Phone Care Team Providers Care Tube And Manifold Builder Name Role Phone Marleen Vega MD Primary Care Provider Unava ilable Encounter Details Date Type Department Care Team (Late st Contact Info) Description 06/14/2014 Documentation EM Family Medicine [address] [place], [place] [phone] Family Medicine, Physician [address] [place] [address] Social History Tobacco Use Types Packs/Day Years [...] on filedocumented in this encounter Care Teams Tube And Manifold Builder Relationship Specialty Start Date End Date Marleen Vega MD PCP - General 11/26/16 documented as of this encounter
--- OUTSIDE RECORDS SUMMARY | 2025-03-29 18:09 | XMS_ITS | Encounter Summary ---
Author Organization [facility] Address [address] [place] [address] Phone Care Team Providers Care Paper Maker Name Role Phone Marleen Vega MD Primary Care Provider Unava ilable Encounter Details Date Type Department Care Team (Late st Contact Info) Description 12/11/2012 Documentation EM Family Medicine [address] [place], [place] [phone] Family Medicine, Physician [address] [place] [address] Social History Tobacco Use Types Packs/Day Years [...] on filedocumented in this encounter Care Teams Paper Maker Relationship Specialty Start Date End Date Marleen Vega MD PCP - General 11/26/16 documented as of this encounter
--- OUTSIDE RECORDS SUMMARY | 2025-03-29 18:09 | XMS_ITS | Encounter Summary ---
Author Organization [facility] Address [address] [place] [address] Phone Care Team Providers Care Guide Cruise Name Role Phone Marleen Vega MD Primary Care Provider Unava ilable Encounter Details Date Type Department Care Team (Late st Contact Info) Description 12/08/2011 Documentation EM Family Medicine [address] [place], [place] [phone] Family Medicine, Physician [address] [place] [address] Social History Tobacco Use Types Packs/Day Years [...] on filedocumented in this encounter Care Teams Guide Cruise Relationship Specialty Start Date End Date Marleen Vega MD PCP - General 11/26/16 documented as of this encounter
--- OUTSIDE RECORDS SUMMARY | 2025-03-29 18:09 | XMS_ITS | Encounter Summary ---
Author Organization [facility] Address [address] [place] [address] Phone Care Team Providers Care Pit Crane Operator Name Role Phone Marleen Vega MD Primary Care Provider Unava ilable Encounter Details Date Type Department Care Team (Late st Contact Info) Description 06/14/2014 Documentation EM Family Medicine [address] [place], [place] [phone] Family Medicine, Physician [address] [place] [address] Social History Tobacco Use Types Packs/Day Years [...] on filedocumented in this encounter Care Teams Pit Crane Operator Relationship Specialty Start Date End Date Marleen Vega MD PCP - General 11/26/16 documented as of this encounter
--- OUTSIDE RECORDS SUMMARY | 2025-03-29 18:09 | XMS_ITS | Encounter Summary ---
Author Organization [facility] Address [address] [place] [address] Phone Care Team Providers Care Research/Program Director Name Role Phone Marleen Vega MD Primary Care Provider Unava ilable Encounter Details Date Type Department Care Team (Late st Contact Info) Description 07/17/2015 Documentation EM Family Medicine [address] [place], [place] [phone] Family Medicine, Physician [address] [place] [address] Social History Tobacco Use Types Packs/Day Years Used Date Smoking Tobacco: Never Comments:Never smoker Comments Unknown Sex and Gender Information Value Date Recorded Sex Assigned at Not on file Legal Sex Female 4:58 PM EDT Gender Identity Not on file Sexual Orientation Not on file documented as of this encounter Plan of Treatment Not on file documented as of this encounter Visit Diagnoses Not on filedocumented in this encounter Care Teams Research/Program Director Relationship Specialty Start Date End Date Marleen Vega MD PCP - General 11/26/16 documented as of this encounter
--- OUTSIDE RECORDS SUMMARY | 2025-03-29 18:09 | XMS_ITS | Encounter Summary ---
Author Organization [facility] Address [address] [place] [address] Phone Care Team Providers Care Orthopedic Podiatrist Name Role Phone Marleen Vega MD Primary Care Provider Unava ilable Encounter Details Date Type Department Care Team (Late st Contact Info) Description 12/11/2012 Documentation EM Family Medicine [address] [place], [place] [phone] Family Medicine, Physician [address] [place] [address] Social History Tobacco Use Types Packs/Day Years [...] on filedocumented in this encounter Care Teams Orthopedic Podiatrist Relationship Specialty Start Date End Date Marleen Vega MD PCP - General 11/26/16 documented as of this encounter
--- OUTSIDE RECORDS SUMMARY | 2025-03-29 18:09 | XMS_ITS | Encounter Summary ---
Author Organization [facility] Address [address] [place] [address] Phone Care Team Providers Care Air Export Logistics Manager Name Role Phone Marleen Vega MD Primary Care Provider Unava ilable Encounter Details Date Type Department Care Team (Late st Contact Info) Description 12/11/2012 Documentation EM Family Medicine [address] [place], [place] [phone] Family Medicine, Physician [address] [place] [address] Social History Tobacco Use Types Packs/Day Years [...] on filedocumented in this encounter Care Teams Air Export Logistics Manager Relationship Specialty Start Date End Date Marleen Vega MD PCP - General 11/26/16 documented as of this encounter
--- OUTSIDE RECORDS SUMMARY | 2025-03-29 18:09 | XMS_ITS | Encounter Summary ---
Author Organization [facility] Address [address] [place] [address] Phone Care Team Providers Care Tax Expert Name Role Phone Marleen Vega MD Primary Care Provider Unava ilable Encounter Details Date Type Department Care Team (Late st Contact Info) Description 12/11/2012 Documentation EM Family Medicine [address] [place], [place] [phone] Family Medicine, Physician [address] [place] [address] Social History Tobacco Use Types Packs/Day Years [...] on filedocumented in this encounter Care Teams Tax Expert Relationship Specialty Start Date End Date Marleen Vega MD PCP - General 11/26/16 documented as of this encounter
--- OUTSIDE RECORDS SUMMARY | 2025-03-29 18:09 | XMS_ITS | Encounter Summary ---
Author Organization [facility] Address [address] [place] [address] Phone Care Team Providers Care Tank Pumper Name Role Phone Marleen Vega MD Primary Care Provider Unava ilable Encounter Details Date Type Department Care Team (Late st Contact Info) Description 12/02/2016 Conversion Encounter [facility] - [address] [address] Social History Tobacco Use Types Packs/Day Years [...] on filedocumented in this encounter Care Teams Tank Pumper Relationship Specialty Start Date End Date Marleen Vega MD PCP - General 11/26/16 documented as of this encounter
--- OUTSIDE RECORDS SUMMARY | 2025-03-29 18:09 | XMS_ITS | Clinical Summary ---
Author Organization [facility] Address [address] [place] [address] Phone Care Team Providers Care Oracle Brm Developer Name Role Phone Marleen Vega MD Primary Care Provider Unava ilable Immunizations Immunization Administration Dates Next Due DTP 08/31/1995, 5,1994, 994 DTaP 5 09/16/1999 H1N1 02/12/2009 HPV, Quadrivalent 11/26/2009,02/12/2009,09/06/19 09 Hep A, Adult 06/13/2014 Hep B, ped/adol 1994,1994,1994 Hib (PRP-T) 06/15/1995, 5,1994, 994 IPV 09/16/1999 Influenza, intranasal, quadrivalent 12/08/2012 Influenza, intranasal, trivalent 12/26/2009 MMR 06/23/1998,06/15/1995 Meningococcal Conj (Menactra) MCV4P 06/13/2014,0 11/22/2006 OPV 1994,1994,1994 Tdap 11/22/2006 Family History Relation Name Status Comments Brother Alive Brother: Alive and well Father Alive Father: Alive a nd well Mother Alive Mother: Alive a nd well Other No family histo ry of Cancer, No family history of Migraines, Family history of Hyperlipidemia, No family history of Developmental dislocation of hip, No family history of Sudden /MS under age 55, No family history of Seizure disorder, No family history of Thyroid disease, No family history of Deafness, No family history of Thrombophilia, No family history of Diabetes mellitus, Family history of Strabismus, No family history of defects, Family history of Asthma, No family history of Obesity, No family history of CVA (Stroke), No family history of ADD/ADHD Social History Tobacco Use Types Packs/Day Years Used Date Smoking Tobacco: Never Comments:Never smoker Comments Unknown Sex and Gender Information Value Date Recorded Sex Assigned at Not on file Legal Sex Female 4:58 PM EDT Gender Identity Not on file Sexual Orientation Not on file Last Filed Vital Signs Vital Sign Reading Time Taken Comments Blood Pressure 120/80 12/04/2014 12:00 AM EDT Pulse 80 05/10/2014 12:00 AM EST Temperature 35.1 C (95.1 F) 12/04/2014 12:00 AM EDT Respiratory Rate - - Oxygen Saturation 100% 12/04/2014 12:00 AM EDT Inhaled Oxygen Concentration - - Weight 58.5 kg (129 lb) 12/04/2014 12:00 AM EDT Height 173.4 cm (5' 8.25 ) 12/04/2014 12:00 AM E DT Body Mass Index 19.47 12/04/2014 12:00 AM EDT Plan of Treatment Health Maintenance Due Date Last Done Comments Varicella Vaccines (1 of 2 - 13+ 2-dose series) 01/05/2013 DTaP,Tdap,and Td Vaccines (7 - Td or Tdap) 11/22/2016 11/22/2006, 09/16/1999, 08/31/1995, Additional history exists Influenza Vaccines (#1) 2024 12/08/2012, 12/26 COVID-19 Vaccine ( season) 2024 Hepatitis B Vaccines Completed 1994, 1994, 1994 HIB Vaccines Completed 06/15/1995, 08/17, 1994, Additional history exists MMR Vaccines Completed 06/23/1998, 06/15/1995 IPV Vaccines Completed 09/16/1999, 08/17, 1994, Additional history exists HPV Vaccines Completed 11/26/2009, 01/17, 09/05/2008 Hepatitis A Vaccines Aged Out 06/13/2014 No long er eligible based on patient's age to complete this topic Meningococcal Vaccine Aged Out 06/13/2014, 007 No longer eligible based on patient's age to complete this topic Men B Vaccine Aged Out No longer elig ible based on patient's age to complete this topic Pneumococcal Vaccine Aged Out No long er eligible based on patient's age to complete this topic Procedures * Due to [place] [employer] law, this organization might not be sharing sensitive test results. Procedure Name Priority Date/Time Associated Diagnosis Comments CHLAMYDIA AND GONORRHEA, AMPLIFIED Routine 06/14/2014 2:27 PM EST from Last 3 Months or Most Recently Relevant to Health Maintenance Results * Due to [place] [employer] law, this organization might not be sharing sensitive test results. * Chlamydia and Gonorrhoea, Amplified (06/14/2014 2:27 PM EST) URINE GC AMP PROBE NEGATIVE [facility] Comment: No Neisseria Gonorrhoeae RNA detected in this patient's sample REFERENCE VALUE: NEGATIVE NOTE: This test uses associate pathologist-mediated amplification method to detect rRNA from C.Trachomatis and N.Gonorrhoeae. A negative result does not preclude infection. In the case of a negative urine result, testing of an endocervical(female) or urethral(male) specimen is recommended if there is high clinical suspicion of infection. The performance characteristics of this test have not been evaluated in children. The Aptima Combo2 assay is not intended for the evaluation of suspected sexual abuse or for other medico-legal indications. The ordering provider should assess if the patient had consensual sex without risk of sexual abuse. Consult the [facility] if needed. Contact phone number . Therapeutic failure or success cannot be determined with the Aptima Combo2 assay since nucleic acid may persist following appropriate antimicrobial therapy. The Centers for Disease Control and Prevention (CDC) recommends confirmatory retesting using culture or a different nucleic acid amplification test when positive results occur, if indicated. Testing performed or reported by [facility], a Service of [facility], [address] [place] [id number] Grover Lim MD, PhD, Feeder Worker Power Unit Operator URINE CHLAMYDIA AMP PROBE NEGATIVE [facility] Comment: No Chlamydia Trachomatis RNA detected in this patient's sample REFERENCE VALUE: NEGATIVE 06/14/2014 2:27 PM EST Narrative [facility] - 06/14/2014 2:27 PM EST URINE CHLAMYDIA GC AMP PROBE us Marleen Vega MD LAB MICROBIOLOGY - GENERAL O RDERABLES Final Result [facility] [address] [place] [address], from Last 3 Months or Most Recently Relevant to Health Maintenance Care Teams Oracle Brm Developer Relationship Specialty Start Date End Date Marleen Vega MD PCP - General 11/26/16
--- OUTSIDE RECORDS SUMMARY | 2025-03-29 18:09 | XMS_ITS | Encounter Summary ---
Author Organization [facility] Address [address] [place] [address] Phone Care Team Providers Care Social Media Assistant Name Role Phone Marleen Vega MD Primary Care Provider Unava ilable Encounter Details Date Type Department Care Team (Late st Contact Info) Description 12/04/2010 Documentation EM Family Medicine [address] [place], [place] [phone] Family Medicine, Physician [address] [place] [address] Social History Tobacco Use Types Packs/Day Years [...] on filedocumented in this encounter Care Teams Social Media Assistant Relationship Specialty Start Date End Date Marleen Vega MD PCP - General 11/26/16 documented as of this encounter
--- OUTSIDE RECORDS SUMMARY | 2025-03-29 18:09 | XMS_ITS | Encounter Summary ---
Author Organization [facility] Address [address] [place] [address] Phone Care Team Providers Care Club Licensee Name Role Phone Marleen Vega MD Primary Care Provider Unava ilable Encounter Details Date Type Department Care Team (Late st Contact Info) Description 12/04/2010 Documentation EM Family Medicine [address] [place], [place] [phone] Family Medicine, Physician [address] [place] [address] Social History Tobacco Use Types Packs/Day Years [...] on filedocumented in this encounter Care Teams Club Licensee Relationship Specialty Start Date End Date Marleen Vega MD PCP - General 11/26/16 documented as of this encounter
--- OUTSIDE RECORDS SUMMARY | 2025-03-29 18:09 | XMS_ITS | Encounter Summary ---
Author Organization [facility] Address [address] [place] [address] Phone Care Team Providers Care Washroom Attendant Name Role Phone Marleen Vega MD Primary Care Provider Unava ilable Encounter Details Date Type Department Care Team (Late st Contact Info) Description 02/17/2010 Documentation [facility] [address] [place], [place] [phone] Family Medicine, Physician [address] [place] [address] Social History Tobacco Use Types Packs/Day Years [...] on filedocumented in this encounter Care Teams Washroom Attendant Relationship Specialty Start Date End Date Marleen Vega MD PCP - General 11/26/16 documented as of this encounter
== END 2025-03-29 13:53 | disposition home or self-care (01) ==
LOC: HO.HMCC 12:42
PROVIDERS: PCP Internal Medicine; Visit Provider Internal Medicine
DX: Z00.00 Encounter for general adult medical examination without abnormal findings (principal); I10 Essential (primary) hypertension; J45.909 Unspecified asthma, uncomplicated

== ENCOUNTER 2025-03-29 12:41 | Outpatient (REF) | payer OTHER, SELFPAY ==
[2025-03-29 15:59] LABS: MANUAL DIFF FLAG NO
[2025-03-29 16:05] LABS: Appearance Urine Clear; Glucose Urine UA Negative (Negative); PH 5.5 (5.0-9.0); Specific Gravity - Urine 1.025 (1.005-1.025)
[2025-03-29 16:13] LABS: Hematocrit 38.4 % (37.0-47.0); Hemoglobin 12.8 g/dl (12.0-16.0); Imm Gran Abs Auto 0.01 X10*3/uL (0.00-0.03); Imm Gran Pct Auto 0.2 % (0.0-0.4); Lymphocytes Absolute Auto 2.1 X10*3/uL (1.2-4.9); Mean Corpuscular HGB Conc 33.3 g/dl (31.0-35.0); Mean Corpuscular Hemoglobin 29.7 pg (27.0-33.0); Mean Corpuscular Volume 89.1 fL (80.0-98.0); NRBC Abs Auto 0.000 X10*3/uL (0.0-0.012); NRBC Pct Auto 0.0 /100WBC (0.0-0.2); Platelet Count 241 X10*3/uL (160-400); Red Blood Count 4.31 X10*6/uL (4.20-5.50); White Blood Count 5.4 X10*3/uL (4.8-10.8)
[2025-03-29 16:24] LABS: Alanine Aminotransferase 22 U/L (0-31); Albumin Level 4.9 g/dL (3.5-5.0); Alkaline Phosphatase 56 U/L (39-117); Anion Gap 11 (12-20); Aspartate Amino Transferase 23 U/L (5-31); Blood Urea Nitrogen 13 mg/dL (9-16); Calcium 9.4 mg/dL (8.4-10.2); Carbon Dioxide 26 mmol/L (22-29); Chloride 106 mmol/L (96-108); Cholesterol 163 mg/dL (<200); Estimated Glomerular Filt Rate > 60; HDL Cholesterol 56 mg/dL (>40); Potassium 3.7 mmol/L (3.3-5.1); Sodium 139 mmol/L (135-145); Total Protein 7.1 g/dL (6.5-8.0); Triglycerides 56 mg/dL (<150)
== END 2025-03-29 12:42 | disposition home or self-care (01) ==
LOC: HO.HMGCLDS 12:41
PROVIDERS: PCP Internal Medicine; Visit Provider Internal Medicine
DX: Z00.00 Encounter for general adult medical examination without abnormal findings (principal); I10 Essential (primary) hypertension; J45.909 Unspecified asthma, uncomplicated
CPT/HCPCS: 36415; 80053; 80061; 81001; 85025; 96127